=== PATIENT | male | born 1975 | race Caucasian/White ===

== ENCOUNTER 2016-05-07 07:39 | Inpatient (IN) | payer MEDICAID ==
[~2016-05-07] VITALS: Ht 182.9 cm; Wt 145.2 kg
[2016-05-07] VITALS (8 sets, daily range): BP systolic 113–145; BP diastolic 48–79; PULSE 102–116; RESP 20–30; TEMP 97.8–101; O2SAT 96–100
[~2016-05-07 07:39] MED LIST: CEPH-460 PO; XARE15TA PO; XARE20TA PO
--- NOTE | 2016-05-07 08:44 | RADRPT ---
EXAM DATE/TIME: 05/07/2016 08:08 [facility] COMPARISON: CT PULMONARY ANGIOGRAM, March 05, 2016, 11:24. CHEST SINGLE AP, March 05, 2016, 8:42. INDICATIONS : Patient states productive cough,fever, and swelling of the legs starting this morning. MEDICAL HISTORY : Deep venous thrombosis. SURGICAL HISTORY : Lithotripsy. ENCOUNTER: Initial ACUITY: 1 day PAIN SCORE: 0/10 LOCATION: Bilateral chest FINDINGS: A single view of the chest demonstrates the lungs to be symmetrically aerated without evidence of mas s, infiltrate or effusion. The heart size is diffusely enlarged but stable compared to the prior exa m. There been no new significant changes compared to the prior study.. Osseous structures are intact . CONCLUSION: Stable examination of the chest. No acute pulmonary and ltrates. Jesus Bruno MD on May 07, 2016 at 8:39 Board Certified Radiologist. This report was verified electronically.
[2016-05-07 09:01] LABS: BASOPHIL % 0.4 % (0.0-2.0); HEMO FLAGS DIFF FINAL; LYMPH % 2.5 % (9.0-44.0); LYMPHOCYTE # 0.3 TH/MM3 (1.0-4.8); MEAN CELL VOLUME 85.2 FL (80.0-100.0); MEAN CORPUSCULAR HGB CONC 32.9 % (32.0-36.0); MONO % 4.6 % (0.0-8.0); NEUT % 92.5 % (16.0-70.0); PLATELET COUNT 207 TH/MM3 (150-450); RED BLOOD COUNT 5.28 MIL/MM3 (4.50-5.90); RED CELL DISTRIBUTION WIDTH 14.1 % (11.6-17.2)
[2016-05-07 09:11] LABS: ANION GAP 5 MEQ/L (5-15); AST (GOT) 11 U/L (15-37); BICARBONATE 30.1 MEQ/L (21.0-32.0); BLOOD UREA NITROGEN 9 MG/DL (7-18); CHLORIDE 104 MEQ/L (98-107); GLOMERULAR FILTRATION RATE 75 ML/MIN (>89); POTASSIUM 4.6 MEQ/L (3.5-5.1); SODIUM (NA) 139 MEQ/L (136-145)
[2016-05-07 09:14] LABS: ALKALINE PHOSPHATASE 71 U/L (45-117); ALT (GPT) 23 U/L (12-78); TOTAL BILIRUBIN ADULT 0.6 MG/DL (0.2-1.0)
[2016-05-07 09:35] LABS: BLOOD, URINE NEG (NEG); COMMENT (UR) CULT NOT INDICATED; CULTURE IF INDICATED CULT NOT INDICATED; GLUCOSE,URINE NEG (NEG); KETONE, URINE NEG (NEG); MUCUS URINE FEW /lpf (OCC); NITRITE,URINE NEG (NEG); PH, URINE 6.5 (5.0-8.5); SQUAMOUS EPITHELIAL CELL URINE 2 /hpf (0-5); URINE COLOR YELLOW (YELLW/STRAW)
[2016-05-07] MEDS ORDERED: ACETAMINOPHEN 325 MG TAB PO ONE (09:45)
[2016-05-07] MEDS ORDERED: CLINDAMYCIN INJ 600 MG in SODIUM CHLORIDE 0.9% INJ 100 ML IV ONE (09:45)
[2016-05-07] MEDS ORDERED: SODIUM CHLOR 0.9% 1000 ML INJ 1,000 ML IV ONE (09:45)
[2016-05-07] MEDS ORDERED: ONDANSETRON HCL 4 MG/2 ML VIAL IV PUSH ONE (10:00)
[2016-05-07] MEDS ORDERED: IOHEXOL 350 MG/ML 10 ML VIAL (for RAD DIAG) IV ONE (10:33)
--- NOTE | 2016-05-07 10:48 | RADRPT ---
EXAM DATE/TIME: 05/07/2016 10:21 [facility] COMPARISON: No previous studies available for comparison. INDICATIONS : Nausea, vomiting, diarrhea, fever, and epigastric pain. Possible sepsis. IV CONTRAST: 92 cc Omnipaque 350 (iohexol) IV ORAL CONTRAST: No oral contrast ingested. RADIATION DOSE: 31.88 CTDIvol (mGy) MEDICAL HISTORY : Deep venous thrombosis. SURGICAL HISTORY : None. ENCOUNTER: Initial ACUITY: 1 day PAIN SCALE: 6/10 LOCATION: Bilateral lower quadrant TECHNIQUE: Volumetric scanning of the abdomen and pelvis was performed. Using automated exposure control and ad justment of the mA and/or kV according to patient size, radiation dose was kept as low as reasonably achievable to obtain optimal diagnostic quality images. FINDINGS: LOWER LUNGS: The visualized lower lungs are clear. LIVER: Homogeneous density without lesion. There is no dilation of the biliary tree. No calcified gallston es. SPLEEN: Normal size without lesion. PANCREAS: Within normal limits. KIDNEYS: Normal in size and shape. There is no mass, stone or hydronephrosis. ADRENAL GLANDS: Within normal limits. VASCULAR: There is no aortic aneurysm. BOWEL/MESENTERY: The stomach, small bowel, and colon demonstrate no acute abnormality. There is no free intraperitone al air or fluid. ABDOMINAL WALL: Small fat-containing umbilical hernia without evidence of incarceration. RETROPERITONEUM: There are moderately prominent bilateral iliac chain lymph nodes, more pronounced on the right than t he left with largest nodes approaching 2 cm in short axis dimension. BLADDER: No wall thickening or mass. REPRODUCTIVE: Within normal limits. INGUINAL: Prominent bilateral inguinal adenopathy. MUSCULOSKELETAL: Within normal limits for patient age. CONCLUSION: Bilateral inguinal adenopathy and prominent iliac chain lymph nodes in the pelvis. If the patient hoskins s not have an ongoing inflammatory process in the lower extremities such as cellulitis, these nodes s hould be considered suspicious for neoplastic. Otherwise no acute findings in the abdomen and pelvis. Go Chacko MD on May 07, 2016 at 10:39 Board Certified Radiologist. This report was verified electronically.
--- NOTE | 2016-05-07 11:37 | PD ---
HPI Chief Complaint: Fever Time Seen by Provider: 09:24 Travel History International Travel<30 days: No Contact w/Intl Traveler<30days: No Traveled to known affect area: No History of Present Illness HPI Patient is a 41-year-old male who comes in complaining of fever with some nausea , vomiting, diarrhea. He also notes that his legs are swollen and have been red. He says he started feeling ill around 1 AM this morning, and got progressively worse. He has been admitted several times for cellulitis causing sepsis. He says he has had a slight cough, but denies any chest pain or shortness of breath. He says he has some pain to his upper abdomen. He says he had [place] food for dinner last night. No one else ate the same food. PFSH Past Medical History Hx Anticoagulant Therapy: Yes (STOPPED OVER A MONTHA AGO--NOT TOLD TO STOP) Arthritis: No Asthma: No Autoimmune Disease: No Anxiety: No Depression: No Heart Rhythm Problems: No Cancer: No Cardiovascular Problems: No High Cholesterol: No Chemotherapy: No Chest Pain: No Congestive Heart Failure: No COPD: No Cerebrovascular Accident: No Diabetes: No Diminished Hearing: No Deep Vein Thrombosis: Yes (RIGHT LEG 09/2015) Endocrine: No GERD: No Genitourinary: Yes Headaches: No Hiatal Hernia: No Hypertension: No Immune Disorder: No Implanted Vascular Access Dvce: No Kidney Stones: Yes (LITHOTRIPSY X 1997) Musculoskeletal: No Neurologic: No Psychiatric: No Reproductive: No Respiratory: Yes (BILAT PE) Integumentary: Yes (CHRONIC CELLULITIS [place]ILL[place] FEET) Immunizations Current: Yes Migraines: No Radiation Therapy: No Renal Failure: No Seizures: No Sleep Apnea: No Thyroid Disease: No Ulcer: No Past Surgical History Abdominal Surgery: No Cardiac Surgery: No Ear Surgery: No Endocrine Surgery: No Eye Surgery: No Genitourinary Surgery: Yes (KIDNEY STONE REMOVED) Gynecologic Surgery: No Neurologic Surgery: No Oral Surgery: No Thoracic Surgery: No Tonsillectomy: Yes Other Surgery: Yes Social History Alcohol Use: No Tobacco Use: No Substance Use: No Allergies-Medications (Allergen,Severity, Reaction): Coded Allergies: [place] (Verified Allergy, Severe, Anaphylaxis, 03/05/16) THROAT CLOSES /RASH Reported Meds & Prescriptions Reported Meds & Active Scripts Active Xarelto (Rivaroxaban) 20 Mg Tab 20 Mg PO DAILY 30 Days Review of Systems Except as stated in HPI: all other systems reviewed are Neg General / Constitutional: Positive: Fever HENT: No: Headaches, Lightheadedness Cardiovascular: No: Chest Pain or Discomfort Respiratory: No: Shortness of Breath Gastrointestinal: Positive: Nausea, Vomiting, Abdominal Pain Genitourinary: No: Dysuria Musculoskeletal: Positive: Edema Skin: Positive Change in Pigmentation Neurologic: No: Weakness, Dizziness Physical Exam Narrative GENERAL: Awake and alert in no acute distress. SKIN: Warm and dry. Erythema and warmth to both lower extremities. No open wounds. HEAD: Atraumatic. Normocephalic. EYES: Pupils equal and round. No scleral icterus. ENT: Mucous membranes pink and moist. NECK: Trachea midline. No JVD. CARDIOVASCULAR: Tachycardia. No murmur appreciated. RESPIRATORY: No accessory muscle use. Clear to auscultation. Breath sounds equal bilaterally. GASTROINTESTINAL: Abdomen soft, non-tender, nondistended. MUSCULOSKELETAL: No obvious deformities. No clubbing. No cyanosis. Large edema to bilateral lower extremities. NEUROLOGICAL: Awake and alert. No obvious cranial nerve deficits. Motor grossly within normal limits. Normal speech. PSYCHIATRIC: Appropriate mood and affect; insight and judgment normal. Data Data Last Documented VS Vital Signs Date Time Temp Pulse Resp B/P Pulse Ox O2 Delivery O2 Flow Rate FiO2 05/07/16 09:28 101.0 05/07/16 09:19 98 Room Air 05/07/16 08:07 116 30 116/48 Orders Electrocardiogram (05/07/16 ) Basic Metabolic Panel (Bmp) (05/07/16 07:42) Comprehensive Metabolic Panel (05/07/16 07:42) Lactic Acid (05/07/16 07:42) Blood Culture (05/07/16 07:42) Urinalysis - C+S If Indicated (05/07/16 07:42) Chest, Single Ap (05/07/16 07:43) Complete Blood Count With Diff (05/07/16 08:40) Sodium Chlor 0.9% 1000 Ml Inj (Ns 1000 M (05/07/16 09:45) Influenzae A/B Antigen (05/07/16 09:40) Ct Abd/Pel W Iv Contrast(Rout) (05/07/16 ) Acetaminophen (Tylenol) (05/07/16 09:45) Clindamycin Inj (Cleocin Inj) (05/07/16 09:45) Ondansetron Inj (Zofran Inj) (05/07/16 10:00) Iohexol 350 Inj (Omnipaque 350 Inj) (05/07/16 10:33) Admit Order (Ed Use Only) (05/07/16 ) Labs Laboratory Tests Test 05/07/16 08:35 White Blood Count 13.0 TH/MM3 Red Blood Count 5.28 MIL/MM3 Hemoglobin 14.8 GM/DL Hematocrit 45.0 % Mean Corpuscular Volume 85.2 FL Mean Corpuscular Hemoglobin 28.0 PG Mean Corpuscular Hemoglobin 32.9 % Concent Red Cell Distribution Width 14.1 % Platelet Count 207 TH/MM3 Mean Platelet Volume 8.8 FL Neutrophils (%) (Auto) 92.5 % Lymphocytes (%) (Auto) 2.5 % Monocytes (%) (Auto) 4.6 % Eosinophils (%) (Auto) 0.0 % Basophils (%) (Auto) 0.4 % Neutrophils # (Auto) 12.0 TH/MM3 Lymphocytes # (Auto) 0.3 TH/MM3 Monocytes # (Auto) 0.6 TH/MM3 Eosinophils # (Auto) 0.0 TH/MM3 Basophils # (Auto) 0.0 TH/MM3 CBC Comment DIFF FINAL Differential Comment Urine Color YELLOW Urine Turbidity CLEAR Urine pH 6.5 Urine Specific [place] 1.021 Urine Protein TRACE mg/dL Urine Glucose (UA) NEG mg/dL Urine Ketones NEG mg/dL Urine Occult Blood NEG Urine Nitrite NEG Urine Bilirubin NEG Urine Urobilinogen LESS THAN 2.0 MG/DL Urine Leukocyte Esterase NEG Urine RBC LESS THAN 1 /hpf Urine WBC 1 /hpf Urine Squamous Epithelial 2 /hpf Cells Urine Mucus FEW /lpf Microscopic Urinalysis Comment CULT NOT INDICATED Sodium Level 139 MEQ/L Potassium Level 4.6 MEQ/L Chloride Level 104 MEQ/L Carbon Dioxide Level 30.1 MEQ/L Anion Gap 5 MEQ/L Blood Urea Nitrogen 9 MG/DL Creatinine 1.08 MG/DL Estimat Glomerular Filtration 75 ML/MIN Rate Random Glucose 109 MG/DL Lactic Acid Level 1.6 mmol/L Calcium Level 8.6 MG/DL Total Bilirubin 0.6 MG/DL Aspartate Amino Transf 11 U/L (AST/SGOT) Alanine Aminotransferase 23 U/L (ALT/SGPT) Alkaline Phosphatase 71 U/L Total Protein 8.0 GM/DL Albumin 3.5 GM/DL MDM Medical Decision Making Medical Screen Exam Complete: Yes Emergency Medical Condition: Yes Medical Record Reviewed: Yes Interpretation(s) ECG shows sinus tach at 120, no ST elevation or depression. Differential Diagnosis Sepsis versus gastroenteritis versus cellulitis versus pneumonia versus colitis versus gastritis Narrative Course Patient is a 41-year-old male comes in complaining of fever, nausea, vomiting, swelling of his legs. Exam shows erythema and warmth of bilateral lower extremities. Labs sent from triage show an elevated white blood cell count. Patient given IVF, started on antibiotics. Previous sensitivities show sensitivities to Vancomycin, resistance to Clindamycin. Given Clindamycin prior to seeing sensitivities, so Vancomycin added. Patient admitted for further management. Diagnosis Primary Impression: Bilateral cellulitis of lower leg Admitting Information Admitting Physician Requests: Admit Rylee More MD May 07, 2016 11:37
[2016-05-07] MEDS ORDERED: BISACODYL 10 MG SUPP PR PRN (12:00)
[2016-05-07] MEDS ORDERED: SENNOSIDES 8.6 MG TAB PO PRN (12:00)
[2016-05-07] MEDS ORDERED: PROCHLORPERAZINE 25 MG SUPP PR PRN (12:00)
[2016-05-07] MEDS ORDERED: SODIUM CHLORIDE 0.9% FLUSH 5 ML FLUSH FLUSH PRN (12:00)
[2016-05-07] MEDS ORDERED: MAGNESIUM HYDROXIDE SUSP 30 ML CUP PO PRN (12:00)
[2016-05-07] MEDS ORDERED: VANCOMYCIN INJ 1,000 MG in SODIUM CHLOR 0.9% 250 ML INJ 250 ML IV ONE (12:00)
[2016-05-07] MEDS ORDERED: VANCOMYCIN INJ 1,000 MG in SODIUM CHLOR 0.9% 250 ML INJ 250 ML IV SCH (12:15)
[2016-05-07] MEDS ORDERED: Vancomycin Consult Pharmacy 1 EA OTHER SCH (12:15)
[2016-05-07] MEDS: VANCOMYCIN INJ 2,500 MG in SODIUM CHLORID 0.9% 500 ML INJ 500 ML IV SCH (13:35)
[2016-05-07] MEDS: SODIUM CHLOR 0.9% 1000 ML INJ 1,000 ML IV SCH ×2 (13:36→22:18)
--- NOTE | 2016-05-07 14:15 | HHI.HP ---
[facility] Service [facility] Primary Care Physician No Primary Care Physician Admission Diagnosis sepsis, cellulitis Diagnoses: Travel History International Travel<30 Days: No Contact w/Intl Traveler <30 Da: No Traveled to Known Affected Are: No History of Present Illness Patient is a 41-year-old male who comes in complaining of fever with some nausea , vomiting, diarrhea. He also notes that his legs are swollen and have been red. He says he started feeling ill around 1 AM this morning, and got progressively worse. He had fevers, nausea, vomited 6 times. He has been admitted several times for cellulitis causing sepsis. He says he has had a slight cough, but denies any chest pain or shortness of breath. He says he has some pain to his upper abdomen. He says he had [place] food for dinner last night. No one else ate the same food. Patient is also reporting worsening rash on his legs, worse on the right leg, associated with pain. He also has fevers, no chills. With sepsis criteria on admission today. Blood cx obtained. Patient started on IV abx, received IVF, pain meds. He feels much better. Will admit for further eval and treatment. Review of Systems Constitutional: DENIES: Fever, Chills, Change in appetite Endocrine: DENIES: Heat/cold intolerance, Polydipsia, Polyuria, Polyphagia Eyes: DENIES: Blurred vision, Eye pain Ears, nose, mouth, throat: DENIES: Tinnitus, Hearing loss, Vertigo, Nasal discharge, Oral lesions, Throat pain, Hoarseness, Ear Pain, Running Nose, Epistaxis, Sinus Pain, Toothache, Odynophagia Respiratory: DENIES: Apneas, Cough, Snoring, Wheezing, Hemoptysis, Sputum production, Shortness of breath Cardiovascular: DENIES: Chest pain, Palpitations, Syncope, Dyspnea on Exertion , PND, Lower Extremity Edema, Orthopnea, Claudication Gastrointestinal: COMPLAINS OF: Abdominal pain, Diarrhea, Nausea, Vomiting, Anorexia, DENIES: Black stools, Bloody stools, Constipation, Difficulty Swallowing Genitourinary: DENIES: Hematuria, Dysuria, Nocturia Musculoskeletal: COMPLAINS OF: Back pain (chronic ) Integumentary: COMPLAINS OF: Rash Neurologic: DENIES: Abnormal gait, Headache, Localized weakness, Paresthesias, Seizures, Speech Problems, Tremor, Poor Balance Psychiatric: DENIES: Anxiety, Depression Past Family Social History Past Medical History H/o DVT and PE on xarelto Past Surgical History back surgery 1995 Reported Medications Reported Meds & Active Scripts Active Xarelto (Rivaroxaban) 20 Mg Tab 20 Mg PO DAILY 30 Days Allergies: Coded Allergies: [place] (Verified Allergy, Severe, Anaphylaxis, 03/05/16) THROAT CLOSES /RASH Family History Mother DM Father DM and Parkinson's Social History Denies EtOH, tobacco or illicit drug use. Physical Exam Vital Signs Vital Signs Date Time Temp Pulse Resp B/P Pulse Ox O2 Delivery O2 Flow Rate FiO2 05/07/16 09:28 101.0 05/07/16 09:19 98 Room Air 05/07/16 08:07 100.7 116 30 116/48 96 Physical Exam GENERAL: This is a morbid obese male, well-nourished, well-developed patient, in no apparent distress. SKIN: BL LE redness and warmth. No open wounds. HEAD: Atraumatic. Normocephalic. No temporal or scalp tenderness. EYES: Pupils equal round and reactive. Extraocular motions intact. No scleral icterus. No injection or drainage. ENT: Nose without bleeding, purulent drainage or septal hematoma. Throat without erythema, tonsillar hypertrophy or exudate. Uvula midline. Airway patent. NECK: Trachea midline. No JVD or lymphadenopathy. Supple, nontender, no meningeal signs. CARDIOVASCULAR: Regular rate and rhythm without murmurs, gallops, or rubs. RESPIRATORY: Clear to auscultation. Breath sounds equal bilaterally. No wheezes , rales, or rhonchi. GASTROINTESTINAL: Abdomen soft, obese, non-tender, nondistended. No hepato- splenomegaly, or palpable masses. No guarding. MUSCULOSKELETAL: Extremities without clubbing, cyanosis, or edema. No joint tenderness, effusion, or edema noted. No calf tenderness. Negative Homans sign bilaterally. NEUROLOGICAL: Awake and alert. Cranial nerves II through XII intact. Motor and sensory grossly within normal limits. Five out of 5 muscle strength in all muscle groups. Normal speech. Laboratory Laboratory Tests Test 05/07/16 08:35 White Blood Count 13.0 Red Blood Count 5.28 Hemoglobin 14.8 Hematocrit 45.0 Mean Corpuscular Volume 85.2 Mean Corpuscular Hemoglobin 28.0 Mean Corpuscular Hemoglobin 32.9 Concent Red Cell Distribution Width 14.1 Platelet Count 207 Mean Platelet Volume 8.8 Neutrophils (%) (Auto) 92.5 Lymphocytes (%) (Auto) 2.5 Monocytes (%) (Auto) 4.6 Eosinophils (%) (Auto) 0.0 Basophils (%) (Auto) 0.4 Neutrophils # (Auto) 12.0 Lymphocytes # (Auto) 0.3 Monocytes # (Auto) 0.6 Eosinophils # (Auto) 0.0 Basophils # (Auto) 0.0 CBC Comment DIFF FINAL Differential Comment Urine Color YELLOW Urine Turbidity CLEAR Urine pH 6.5 Urine Specific [place] 1.021 Urine Protein TRACE Urine Glucose (UA) NEG Urine Ketones NEG Urine Occult Blood NEG Urine Nitrite NEG Urine Bilirubin NEG Urine Urobilinogen LESS THAN 2.0 Urine Leukocyte Esterase NEG Urine RBC LESS THAN 1 Urine WBC 1 Urine Squamous Epithelial 2 Cells Urine Mucus FEW Microscopic Urinalysis Comment CULT NOT INDICATED Sodium Level 139 Potassium Level 4.6 Chloride Level 104 Carbon Dioxide Level 30.1 Anion Gap 5 Blood Urea Nitrogen 9 Creatinine 1.08 Estimat Glomerular Filtration 75 Rate Random Glucose 109 Lactic Acid Level 1.6 Calcium Level 8.6 Total Bilirubin 0.6 Aspartate Amino Transf 11 (AST/SGOT) Alanine Aminotransferase 23 (ALT/SGPT) Alkaline Phosphatase 71 Total Protein 8.0 Albumin 3.5 Date/Time Procedure Status Source Growth 05/07/16 13:00 Influenza Types A,B Antigen ([place]) - Final Complete Nasal Washing NEGATIVE FOR FLU A AND B ANTIGEN.... 05/07/16 08:35 Aerobic Blood Culture Received Blood Peripheral Pending 05/07/16 08:35 Anaerobic Blood Culture Received Blood Peripheral Pending Result Diagram: 05/07/16 0835 05/07/16 0835 Imaging Last Impressions Chest X-Ray 05/07/16 0743 Signed Impressions: Service Date/Time: Saturday, May 07, 2016 08:08 - CONCLUSION: Stable examination of the chest. No acute pulmonary and ltrates. Jesus Bruno MD Abdomen/Pelvis CT 05/07/16 0000 Signed Impressions: Service Date/Time: Saturday, May 07, 2016 10:21 - CONCLUSION: Bilateral inguinal adenopathy and prominent iliac chain lymph nodes in the pelvis. If the patient does not have an ongoing inflammatory process in the lower extremities such as cellulitis, these nodes should be considered suspicious for neoplastic. Otherwise no acute findings in the abdomen and pelvis. Go Chacko MD Assessment and Plan Assessment and Plan 41 yo M with PMH of DVT/PE on xarelto, h/o bl LE cellulitis who came to ED with Sepsis, temp 101, leukocytosis, tachycardia on admission Nause/vomiting/diarrhea/abdominal pain Fever BL LE cellulitis H/O DVT/PE on xarelto. Obtain blood cx, wound cx Start vancomycin IV. Start IVF Antiemetics, laxatives/stool softeners as need. LA 1.6 Monitor VS. Consult podiatry Consult ID DVT ppx on xarelto Code Status full Discussed Condition With patient, ED physician, nurse Physician Certification 2 Midnight Certification Type: Admission for Inpatient Services Order for Inpatient Services 3The services are ordered in accordance with Medicare regulations or non- Medicare payer requirements, as applicable. In the case of services not specified as inpatient-only, they are appropriately provided as inpatient services in accordance with the 2-midnight benchmark. Estimated LOS (days): 3 days is the estimated time the patient will need to remain in the hospital, assuming treatment plan goals are met and no additional complications. Post-Hospital Plan: Home Destiny Ruiz MD May 07, 2016 14:15
[2016-05-07] MEDS: SODIUM CHLORIDE 0.9% FLUSH 5 ML FLUSH FLUSH SCH (21:00)
[2016-05-07] MEDS: ONDANSETRON HCL 4 MG/2 ML VIAL IVP PRN (22:17)
[2016-05-07] MEDS: ACETAMINOPHEN 325 MG TAB PO PRN (22:17)
--- NOTE | 2016-05-07 23:34 | EKG ---
Date Performed: 05/07/2016 Time Performed: 09:43:20 PTAGE: 41 years EKG: SINUS TACHYCARDIA LOW QRS VOLTAGE IN PRECORDIAL LEADS PATTERN CONSISTENT WITH PULMONARY DIS EASE INCOMPLETE RIGHT BUNDLE BRANCH BLOCK LEFT ANTERIOR FASCICULAR BLOCK ABNORMAL ECG PREVIOUS TRACING : 03/05/2016 08.15 DOCTOR: Rosaura Eden Interpretating Date/Time 05/07/2016 23:33:53
[2016-05-08] VITALS (10 sets, daily range): BP systolic 106–130; BP diastolic 56–79; PULSE 82–100; RESP 18–21; TEMP 98.2–100.9; O2SAT 92–96
[2016-05-08] MEDS: VANCOMYCIN INJ 2,500 MG in SODIUM CHLORID 0.9% 500 ML INJ 500 ML IV SCH ×2 (01:15→13:23)
[2016-05-08] MEDS: RIVAROXABAN 20 MG TAB PO SCH (08:52)
[2016-05-08] MEDS: SODIUM CHLOR 0.9% 1000 ML INJ 1,000 ML IV SCH ×3 (08:52→21:56)
[2016-05-08] MEDS: SODIUM CHLORIDE 0.9% FLUSH 5 ML FLUSH FLUSH SCH ×2 (08:53→21:00)
[2016-05-08] MEDS: ACETAMINOPHEN 325 MG TAB PO PRN (08:55)
[2016-05-08 09:58] LABS: AUTOMATED NEUTROPHIL # 5.3 TH/MM3 (1.8-7.7); BASOPHIL % 0.4 % (0.0-2.0); EOSINOPHIL % 0.1 % (0.0-4.0); HEMATOCRIT 41.7 % (39.0-51.0); HEMO FLAGS DIFF FINAL; LYMPH % 7.5 % (9.0-44.0); LYMPHOCYTE # 0.5 TH/MM3 (1.0-4.8); MEAN CELL VOLUME 84.7 FL (80.0-100.0); MEAN CORPUSCULAR HEMOGLOBIN 28.2 PG (27.0-34.0); MEAN CORPUSCULAR HGB CONC 33.3 % (32.0-36.0); MONO % 10.3 % (0.0-8.0); NEUT % 81.7 % (16.0-70.0); PLATELET COUNT 166 TH/MM3 (150-450); RED BLOOD COUNT 4.93 MIL/MM3 (4.50-5.90); RED CELL DISTRIBUTION WIDTH 14.3 % (11.6-17.2); WHITE BLOOD COUNT 6.5 TH/MM3 (4.0-11.0)
[2016-05-08 10:21] LABS: BICARBONATE 27.2 MEQ/L (21.0-32.0); POTASSIUM 3.8 MEQ/L (3.5-5.1)
--- NOTE | 2016-05-08 17:28 | HHI.PR ---
Subjective Remarks Patient laying in bed, is obese, denied chest pain or short of breath And a fever of 100.9 Objective Vitals Vital Signs Date Time Temp Pulse Resp B/P Pulse Ox O2 Delivery O2 Flow Rate FiO2 05/08/16 16:00 99.4 97 18 130/79 93 05/08/16 12:31 95 05/08/16 12:00 98.2 82 18 116/66 95 05/08/16 08:00 100.9 88 18 115/76 93 05/08/16 07:24 91 05/08/16 04:00 98.5 89 20 110/61 92 05/08/16 01:32 96 Nasal Cannula 2.00 05/08/16 00:58 100.6 98 21 106/57 93 05/07/16 23:00 102 05/07/16 20:13 100.4 104 21 117/74 96 05/07/16 18:50 106 I/O 05/07/16 05/07/16 05/07/16 05/08/16 05/08/16 05/08/16 07:00 15:00 23:00 07:00 15:00 23:00 Intake Total 1072 ml 1068 ml Output Total 1300 ml 325 ml Balance -228 ml 743 ml Intake IV Total 1072 ml 1068 ml Output Urine Total 1300 ml 325 ml # Voids 1 Result Diagram: 05/08/16 0906 05/08/16 0906 Objective Remarks GENERAL: This is a well-nourished, well-developed patient, obese in no apparent distress. CARDIOVASCULAR: Regular rate and rhythm without murmurs, gallops, or rubs. RESPIRATORY: Clear to auscultation. Breath sounds equal bilaterally. No wheezes , rales, or rhonchi. GASTROINTESTINAL: Abdomen soft, non-tender, nondistended. Normal active bowel sounds MUSCULOSKELETAL: Bilateral +2 edema with status dermatitis on bilateral lower extremity NEURO: Alert & Oriented x4 to person, place, time, situation. Moves all ext x4 A/P Assessment and Plan 41 yo M with PMH of DVT/PE on xarelto, h/o bl LE cellulitis who came to ED with Sepsis, temp 101, leukocytosis, tachycardia on admission Nause/vomiting/diarrhea/abdominal pain Persistent fever 100.9 today BL LE cellulitis H/O DVT/PE on xarelto. Plan: Follow blood cx, wound cx Continue antibiotic IV. Per ID switch to Keflex/tox he at discharge Antiemetics, laxatives/stool softeners as need. Consult podiatry Patient ID consultation DVT ppx on Davida Quezada MD May 08, 2016 17:28
[2016-05-08] MEDS: ONDANSETRON HCL 4 MG/2 ML VIAL IVP PRN (19:10)
--- NOTE | 2016-05-08 19:12 | PD.ID.CON ---
History of Present Illness Service ID Consult Requested By Dr Ruiz Reason for Consult sepsis Primary Care Physician No Primary Care Physician Diagnoses: History of Present Illness 41 yo male with morbid obesity and chronic BLE venostasis presents to the hospital yday with 1 day of fever, chills malaise, nausea, vomiting, diarrhea Denies sick exposure Lives alone No travel; He states his b/l lower extremeties were quirte swollen and red yday , but improved today He met sepsis criteria and got admitted [place] clx negative at 1 day, leukocytosis was 13 K on admission - improved CXR, UA - unremarkable BC negative @ 1 day He is on vancomycin Nausea, diarrhea - resolved Denies cough, SOB, chest pain Review of Systems Other as per history of present illness, the rest of 12 point review is negative Past Family Social History Allergies: Coded Allergies: [place] (Verified Allergy, Severe, Anaphylaxis, 03/05/16) THROAT CLOSES /RASH Past Medical History H/o DVT and PE on xarelto Past Surgical History remote back surgery 1995 Active Ordered Medications Medications where reviewed in EMR Antibiotics Include: vancomycin Family History Mother DM Father DM and Parkinson's Social History Denies EtOH, tobacco or illicit drug use. Physical Exam Vital Signs Vital Signs Date Time Temp Pulse Resp B/P Pulse Ox O2 Delivery O2 Flow Rate FiO2 05/08/16 18:03 21 05/08/16 16:00 99.4 97 18 130/79 93 05/08/16 12:31 95 05/08/16 12:00 98.2 82 18 116/66 95 05/08/16 08:00 100.9 88 18 115/76 93 05/08/16 07:24 91 05/08/16 04:00 98.5 89 20 110/61 92 05/08/16 01:32 96 Nasal Cannula 2.00 05/08/16 00:58 100.6 98 21 106/57 93 05/07/16 23:00 102 05/07/16 20:13 100.4 104 21 117/74 96 Physical Exam CONSTITUTIONAL/GENERAL: This is a morbidly obese patient, in no apparent distress. SKIN: No jaundice, rashes, or lesions. Skin temperature appropriate. Not diaphoretic. HEAD: Atraumatic. Normocephalic. EYES: Pupils equal and round and reactive. Extraocular motions intact. No scleral icterus. No injection or drainage. Fundi not examined. ENT: Hearing grossly normal. Nose without bleeding or purulent drainage. Oral mucosae moist without visible erythema, exudates, masses, or lesions. Poor dentition NECK: Trachea midline. Supple, nontender. No palpable thyroid enlargement or nodularity. CARDIOVASCULAR: Regular rate and rhythm without murmurs, gallops, or rubs. No JVD. Peripheral pulses symmetric. RESPIRATORY/CHEST: Symmetric, unlabored respirations. Clear to auscultation. Breath sounds equal bilaterally. No wheezes, rales, or rhonchi. GASTROINTESTINAL: Abdomen soft, non-tender, nondistended. No hepato-splenomegaly , or palpable masses. No guarding. Bowel sounds present. GENITOURINARY: Without palpable bladder distension. MUSCULOSKELETAL: Extremities without clubbing, cyanosis, Chronic appearing b/l tight 3+ edema. Healing dry small wounds and excoriations are present Hyperpigmientation present along withr residula erythema tree bark orozco cw diminished edema + b/l inguinal lymphadenopathy No joint tenderness or effusion noted. No calf tenderness. No mottling or clubbing. LYMPHATICS: No palpable cervical or supraclavicular adenopathy. NEUROLOGICAL: Awake and alert. Motor and sensory grossly within normal limits. Follows commands.Normal speech. Moves all extremities. PSYCHIATRIC: No obvious anxiety/depression. no apparent hallucinations or other psychotic thought process. Laboratory Laboratory Tests Test 05/08/16 09:06 White Blood Count 6.5 Red Blood Count 4.93 Hemoglobin 13.9 Hematocrit 41.7 Mean Corpuscular Volume 84.7 Mean Corpuscular Hemoglobin 28.2 Mean Corpuscular Hemoglobin 33.3 Concent Red Cell Distribution Width 14.3 Platelet Count 166 Mean Platelet Volume 8.9 Neutrophils (%) (Auto) 81.7 Lymphocytes (%) (Auto) 7.5 Monocytes (%) (Auto) 10.3 Eosinophils (%) (Auto) 0.1 Basophils (%) (Auto) 0.4 Neutrophils # (Auto) 5.3 Lymphocytes # (Auto) 0.5 Monocytes # (Auto) 0.7 Eosinophils # (Auto) 0.0 Basophils # (Auto) 0.0 CBC Comment DIFF FINAL Differential Comment Sodium Level 136 Potassium Level 3.8 Chloride Level 102 Carbon Dioxide Level 27.2 Anion Gap 7 Blood Urea Nitrogen 7 Creatinine 0.87 Estimat Glomerular Filtration 96 Rate Random Glucose 98 Calcium Level 8.0 Date/Time Procedure Status Source Growth 05/07/16 13:00 Influenza Types A,B Antigen (NAKUL) - Final Complete Nasal Washing NEGATIVE FOR FLU A AND B ANTIGEN.... 05/07/16 08:35 Aerobic Blood Culture - Preliminary Resulted Blood Peripheral NO GROWTH IN 1 DAY 05/07/16 08:35 Anaerobic Blood Culture - Preliminary Resulted Blood Peripheral NO GROWTH IN 1 DAY 05/07/16 07:42 Aerobic Blood Culture Received Blood Peripheral Pending 05/07/16 07:42 Anaerobic Blood Culture Received Blood Peripheral Pending Result Diagram: 05/08/16 0906 05/08/16 0906 Imaging Last Impressions Chest X-Ray 05/07/16 0743 Signed Impressions: Service Date/Time: Saturday, May 07, 2016 08:08 - CONCLUSION: Stable examination of the chest. No acute pulmonary and ltrates. Jesus Bruno MD Abdomen/Pelvis CT 05/07/16 0000 Signed Impressions: Service Date/Time: Saturday, May 07, 2016 10:21 - CONCLUSION: Bilateral inguinal adenopathy and prominent iliac chain lymph nodes in the pelvis. If the patient does not have an ongoing inflammatory process in the lower extremities such as cellulitis, these nodes should be considered suspicious for neoplastic. Otherwise no acute findings in the abdomen and pelvis. Go Chacko MD Assessment and Plan Assessment and Plan Fever, leukocytosis, diarrhea, nause, vomiting Source is likely b/l LE cellulitis in the settings of chtonic venostasis - strep ? GAS vs staph MSSA or MRSA Improved clinically cont vancomycin for now Keep lower extremeties elevated eventually transition to oral abx (Keflex 500 mg q 6 hrs + doxycycline 100 mg bid) vs clindamycin - once ready for dc Fu blood clx chk stool for C.diff if diarrhea recurs Discussed Condition With Sarah Flores MD May 08, 2016 19:12
[2016-05-09] VITALS (8 sets, daily range): BP systolic 112–133; BP diastolic 73–80; PULSE 80–92; RESP 18–22; TEMP 98.2–99.7; O2SAT 92–96
[2016-05-09] MEDS: VANCOMYCIN INJ 2,500 MG in SODIUM CHLORID 0.9% 500 ML INJ 500 ML IV SCH ×2 (01:25→12:58)
[2016-05-09] MEDS: ONDANSETRON HCL 4 MG/2 ML VIAL IVP PRN (02:13)
[2016-05-09] MEDS: RIVAROXABAN 20 MG TAB PO SCH (09:41)
[2016-05-09] MEDS: SODIUM CHLORIDE 0.9% FLUSH 5 ML FLUSH FLUSH SCH ×2 (09:41→20:25)
[2016-05-09] MEDS: SODIUM CHLOR 0.9% 1000 ML INJ 1,000 ML IV SCH ×2 (09:55→23:59)
[2016-05-09] MEDS ORDERED: INFLUENZA VIRUS VACCINE (QUADRIVALENT) 0.5 ML SYR IM ONE (10:00)
[2016-05-09] MEDS ORDERED: PHARMACY ORDERED LAB XX ONE (12:45)
[2016-05-09] MEDS ORDERED: CEPH-460 PO (14:05)
[2016-05-09] MEDS ORDERED: LACTCHW3 CHEW (14:05)
[2016-05-09] MEDS ORDERED: VIBR50SY PO (14:08)
--- NOTE | 2016-05-09 15:49 | HHI.PR ---
Subjective Remarks Patient still feeling heaviness in his legs, I encouraged him to ambulate, discussed with the nurse to increase his ambulation Will try to get him able to go home tomorrow on by mouth antibiotic Objective Vitals Vital Signs Date Time Temp Pulse Resp B/P Pulse Ox O2 Delivery O2 Flow Rate FiO2 05/09/16 12:00 98.8 80 20 126/80 94 05/09/16 11:24 93 21 05/09/16 10:58 82 05/09/16 09:41 94 Room Air 05/09/16 08:00 98.9 81 20 112/73 93 05/09/16 04:38 98.2 80 20 133/79 94 05/09/16 00:30 99.7 92 22 127/74 92 05/08/16 22:18 98.9 100 20 109/56 94 05/08/16 21:00 99 05/08/16 18:03 21 05/08/16 16:00 99.4 97 18 130/79 93 I/O 05/08/16 05/08/16 05/08/16 05/09/16 05/09/16 05/09/16 06:59 14:59 22:59 06:59 14:59 22:59 Intake Total 1068 ml 480 ml 1338 ml 930 ml 480 ml Output Total 325 ml 1350 ml 1035 ml 800 ml Balance 743 ml -870 ml 303 ml 930 ml -320 ml Intake Oral 480 ml 120 ml 480 ml IV Total 1068 ml 1218 ml 930 ml Output Urine Total 325 ml 1350 ml 475 ml 800 ml Emesis 560 ml Result Diagram: 05/08/1690505/08/16905 Objective Remarks GENERAL: This is a well-nourished, well-developed patient, obese in no apparent distress. CARDIOVASCULAR: Regular rate and rhythm without murmurs, gallops, or rubs. RESPIRATORY: Clear to auscultation. Breath sounds equal bilaterally. No wheezes , rales, or rhonchi. GASTROINTESTINAL: Abdomen soft, non-tender, nondistended. Normal active bowel sounds MUSCULOSKELETAL: Bilateral +2 edema with status dermatitis on bilateral lower extremity NEURO: Alert & Oriented x4 to person, place, time, situation. Moves all ext x4 A/P Assessment and Plan 41 yo M with PMH of DVT/PE on xarelto, h/o bl LE cellulitis who came to ED with Sepsis, temp 101, leukocytosis, tachycardia on admission Nause/vomiting/diarrhea/abdominal pain Persistent fever 100.9 today BL LE cellulitis H/O DVT/PE on xarelto. Plan: Follow blood cx negative for 2 days, wound cx Continue antibiotic IV. Per ID switch to Keflex/doxycycline at discharge Antiemetics, laxatives/stool softeners as need. Consult podiatry pending Patient ID consultation DVT ppx on xarelto Discharge Planning In a.m. with by mouth antibiotic Davida Hale MD May 09, 2016 15:49
[2016-05-09] MEDS ORDERED: ACETAMINOPHEN 325 MG TAB PO PRN (20:00)
[2016-05-10] VITALS: BP 127/76; PULSE 77; RESP 18; TEMP 98.2; O2SAT 98
[2016-05-10] MEDS: VANCOMYCIN INJ 2,500 MG in SODIUM CHLORID 0.9% 500 ML INJ 500 ML IV SCH ×2 (01:46→13:00)
[2016-05-10 04:00] VITALS: BP 150/83; PULSE 76; RESP 20; TEMP 97.5; O2SAT 94
[2016-05-10 08:00] VITALS: BP 140/80; PULSE 79; RESP 18; TEMP 96.6; O2SAT 94
[2016-05-10 08:07] LABS: AUTOMATED NEUTROPHIL # 4.2 TH/MM3 (1.8-7.7); BASOPHIL % 0.4 % (0.0-2.0); EOSINOPHIL # 0.3 TH/MM3 (0-0.4); EOSINOPHIL % 4.9 % (0.0-4.0); HEMATOCRIT 43.4 % (39.0-51.0); HEMO FLAGS DIFF FINAL; LYMPHOCYTE # 0.7 TH/MM3 (1.0-4.8); MEAN CELL VOLUME 85.1 FL (80.0-100.0); MEAN CORPUSCULAR HEMOGLOBIN 28.3 PG (27.0-34.0); MEAN CORPUSCULAR HGB CONC 33.3 % (32.0-36.0); MONO % 12.4 % (0.0-8.0); NEUT % 70.3 % (16.0-70.0); PLATELET COUNT 195 TH/MM3 (150-450); RED CELL DISTRIBUTION WIDTH 13.7 % (11.6-17.2); WHITE BLOOD COUNT 5.9 TH/MM3 (4.0-11.0)
[2016-05-10] MEDS: SODIUM CHLORIDE 0.9% FLUSH 5 ML FLUSH FLUSH SCH (08:13)
[2016-05-10] MEDS: RIVAROXABAN 20 MG TAB PO SCH (08:14)
[2016-05-10 09:30] VITALS: O2SAT 94
[2016-05-10 12:00] VITALS: BP 154/94; PULSE 71; RESP 18; TEMP 98.6; O2SAT 95
[2016-05-10] MEDS ORDERED: PHARMACY ORDERED LAB XX ONE (12:45)
--- NOTE | 2016-05-10 16:29 | HHI.IDPN ---
Subjective Subjective Remarks Doing good afebrile No co BC remian negative @ 3 days Antibiotics vancomycin Allergies: Coded Allergies: [place] (Verified Allergy, Severe, Anaphylaxis, 03/05/16) THROAT CLOSES /RASH Objective . Vital Signs Date Time Temp Pulse Resp B/P Pulse Ox O2 Delivery O2 Flow Rate FiO2 05/10/16 12:00 98.6 71 18 154/94 95 05/10/16 09:30 94 21 05/10/16 08:00 96.6 79 18 140/80 94 05/10/16 04:00 97.5 76 20 150/83 94 05/10/16 00:00 98.2 77 18 127/76 98 05/09/16 20:00 98.9 80 18 129/80 96 05/09/16 05/09/16 05/10/16 15:00 23:00 07:00 Intake Total 480 ml 1380 ml Output Total 800 ml Balance -320 ml 1380 ml Intake Oral 480 ml 600 ml IV Total 780 ml Output Urine Total 800 ml # Voids 3 . Laboratory Tests Test 05/10/16 06:59 White Blood Count 5.9 TH/MM3 Red Blood Count 5.10 MIL/MM3 Hemoglobin 14.4 GM/DL Hematocrit 43.4 % Mean Corpuscular Volume 85.1 FL Mean Corpuscular Hemoglobin 28.3 PG Mean Corpuscular Hemoglobin 33.3 % Concent Red Cell Distribution Width 13.7 % Platelet Count 195 TH/MM3 Mean Platelet Volume 8.8 FL Neutrophils (%) (Auto) 70.3 % Lymphocytes (%) (Auto) 12.0 % Monocytes (%) (Auto) 12.4 % Eosinophils (%) (Auto) 4.9 % Basophils (%) (Auto) 0.4 % Neutrophils # (Auto) 4.2 TH/MM3 Lymphocytes # (Auto) 0.7 TH/MM3 Monocytes # (Auto) 0.7 TH/MM3 Eosinophils # (Auto) 0.3 TH/MM3 Basophils # (Auto) 0.0 TH/MM3 CBC Comment DIFF FINAL Differential Comment Laboratory Tests Test 05/09/16 05/10/16 05:24 06:59 Lipase 97 U/L Creatinine 0.66 MG/DL Estimat Glomerular Filtration 132 ML/MIN Rate Imaging Last Impressions Chest X-Ray 05/07/16 0740 Signed Impressions: Service Date/Time: Saturday, May 07, 2016 08:08 - CONCLUSION: Stable examination of the chest. No acute pulmonary and ltrates. Jesus Bruno MD Abdomen/Pelvis CT 05/07/16 0000 Signed Impressions: Service Date/Time: Saturday, May 07, 2016 10:21 - CONCLUSION: Bilateral inguinal adenopathy and prominent iliac chain lymph nodes in the pelvis. If the patient does not have an ongoing inflammatory process in the lower extremities such as cellulitis, these nodes should be considered suspicious for neoplastic. Otherwise no acute findings in the abdomen and pelvis. Go Chacko MD Physical Exam CONSTITUTIONAL/GENERAL: This is a morbidly obese patient, in no apparent distress. OOB in chair SKIN: No jaundice, rashes, or lesions. Skin temperature appropriate. Not diaphoretic. MUSCULOSKELETAL: Extremities without clubbing, cyanosis, Improved edema Resolved erythema; chronic hyperpigmentation NEUROLOGICAL: Awake and alert. Non focal Assessment & Plan Remarks Fever, leukocytosis, diarrhea, nause, vomiting: all resolved -BC remian negative Source is likely b/l LE cellulitis in the settings of chtonic venostasis - strep ? GAS vs staph MSSA or MRSA Improved clinically dc vancomycin for now Keep lower extremeties elevated eOk to transition to oral abx (Keflex 500 mg q 6 hrs + doxycycline 100 mg bid ) vs clindamycin - once ready for dc Ok to dc home Sarah Driscoll MD May 10, 2016 16:29
[2016-05-12] MEDS ORDERED: PHARMACY ORDERED LAB XX ONE (00:45)
--- NOTE | 2016-05-15 14:18 | HHI.DS ---
Discharge Summary Admission Date May 07, 2016 at 11:57 Discharge Date: May 10, 2016 Admitting Diagnosis sepsis, cellulitis (1) Sepsis ICD Code: A41.9 (2) Sepsis due to cellulitis ICD Code: A41.9 Procedures See below Brief History - From Admission Patient is a 41-year-old male who comes in complaining of fever with some nausea , vomiting, diarrhea. He also notes that his legs are swollen and have been red. He says he started feeling ill around 1 AM this morning, and got progressively worse. He had fevers, nausea, vomited 6 times. He has been admitted several times for cellulitis causing sepsis. He says he has had a slight cough, but denies any chest pain or shortness of breath. He says he has some pain to his upper abdomen. He says he had [place] food for dinner last night. No one else ate the same food. Patient is also reporting worsening rash on his legs, worse on the right leg, associated with pain. He also has fevers, no chills. With sepsis criteria on admission today. Blood cx obtained. Patient started on IV abx, received IVF, pain meds. He feels much better. Will admit for further eval and treatment. PE at Discharge GENERAL: This is a well-nourished, well-developed patient, obese in no apparent distress. CARDIOVASCULAR: Regular rate and rhythm without murmurs, gallops, or rubs. RESPIRATORY: Clear to auscultation. Breath sounds equal bilaterally. No wheezes , rales, or rhonchi. GASTROINTESTINAL: Abdomen soft, non-tender, nondistended. Normal active bowel sounds MUSCULOSKELETAL: Bilateral +2 edema with status dermatitis on bilateral lower extremity NEURO: Alert & Oriented x4 to person, place, time, situation. Moves all ext x4 Hospital Course 41 yo M with PMH of DVT/PE on xarelto, h/o bl LE cellulitis who came to ED with Sepsis, temp 101, leukocytosis, tachycardia on admission Nause/vomiting/diarrhea/abdominal pain Persistent fever 100.9 today BL LE cellulitis H/O DVT/PE on xarelto. Plan: Follow blood cx negative for 2 days, wound cx Continue antibiotic IV. Per ID switch to Keflex/doxycycline at discharge Antiemetics, laxatives/stool softeners as need. Consult podiatry pending Patient ID consultation DVT ppx on xarelto Pt Condition on Discharge: Fair Discharge Disposition: Discharge Home Discharge Time: <= 30 minutes Discharge Instructions DIET: Follow Instructions for: Heart Healthy Diet, Diabetic Diet Activities you can perform: Weight Bearing as Maryam New Medications: Cephalexin (Keflex) 500 Mg Cap 500 MG PO Q6H Infection #40 Ref 0 CAP Doxycycline Calcium Liq (Vibramycin Liq) 50 Mg/5 Ml Syrp 100 MG PO BID Infection #20 Ref 0 ML Lactobacillus Acidophilus (Lactinex) 1 Chew 1 TAB CHEW DAILY Nutritional Supplement #30 Ref 0 TAB Continued Medications: Rivaroxaban (Xarelto) 20 Mg Tab 20 MG PO DAILY Blood Clot Prevention Days 30 Ref 11 TAB Davida Hale MD May 15, 2016 14:17
== END 2016-05-10 16:44 | disposition home or self-care (01) | DRG 872 ==
LOC: NEPE 07:39 → NEDA 11:57 → N05A 17:03
PROVIDERS: ADMIT Hospitalist; ATTEND Hospitalist
DX: A41.9 Sepsis, unspecified organism (principal); Z68.41 Body mass index [BMI] 40.0-44.9, adult; L03.115 Cellulitis of right lower limb; L03.116 Cellulitis of left lower limb; I87.2 Venous insufficiency (chronic) (peripheral); R19.7 Diarrhea, unspecified; R11.2 Nausea with vomiting, unspecified; E66.01 Morbid (severe) obesity due to excess calories; Z79.01 Long term (current) use of anticoagulants; Z86.711 Personal history of pulmonary embolism; Z86.718 Personal history of other venous thrombosis and embolism
CPT/HCPCS: 71010; 74177; 80048; 80053; 80202; 81001; 82565; 82948; 83605; 83690; 85025; 87040; 87804; 90686; 93005; 96374; 96375; J2405; J3370; J7030; J7040; Q2038; Q9967

== ENCOUNTER 2016-07-20 13:30 | Emergency (ER) | payer MEDICAID, OTHER ==
[~2016-07-20] VITALS: Ht 182.9 cm; Wt 125.0 kg
[~2016-07-20 13:30] MED LIST changes: +LACTCHW3 CHEW; +VIBR50SY PO; -XARE15TA PO
[2016-07-20 13:32] VITALS: BP 162/92; PULSE 105; RESP 17; TEMP 98.1; O2SAT 97
[2016-07-20 13:45] VITALS: BP 134/79; PULSE 99; RESP 22; TEMP 98; O2SAT 96
--- NOTE | 2016-07-20 14:02 | PD ---
HPI Chief Complaint: Edema Time Seen by Provider: 14:01 Travel History International Travel<30 days: No Contact w/Intl Traveler<30days: No Traveled to known affect area: No History of Present Illness HPI 41-year-old male with history of lymphedema and recurrent lower extremity cellulitis hospitalized in the past for sepsis, presents to emergency department for evaluation of increasing edema on the bilateral lower extremities with associated erythema and weeping. Patient states he has had felt chilled without fever. Reports lower extremity pain, aching, constant. Considered because they have started to weep. Reports pain exacerbated with ambulation. Patient has also had a cough and chest congestion developing over the last 48 hours. Nonproductive.. No reports of injury. No other symptoms to report this time. PFSH Past Medical History Hx Anticoagulant Therapy: Yes (xarelto, hx dvt) Arthritis: No Asthma: No Autoimmune Disease: No Anxiety: No Depression: Yes Heart Rhythm Problems: No Cancer: No Cardiovascular Problems: Yes High Cholesterol: No Chemotherapy: No Chest Pain: No Congestive Heart Failure: No COPD: No Cerebrovascular Accident: No Diabetes: No Diminished Hearing: No Deep Vein Thrombosis: Yes (RIGHT LEG 09/2015) Endocrine: No GERD: No Genitourinary: Yes Headaches: No Hiatal Hernia: No Hypertension: No Immune Disorder: No Implanted Vascular Access Dvce: No Kidney Stones: Yes (LITHOTRIPSY X 1997) Medical other: Yes (past may admitted for sepsis) Musculoskeletal: Yes Neurologic: Yes Psychiatric: No Reproductive: No Respiratory: Yes (BILAT PE) Integumentary: Yes (CHRONIC CELLULITIS PHILLIP FEET) Immunizations Current: Yes Migraines: No Radiation Therapy: No Renal Failure: No Seizures: No Sleep Apnea: No Thyroid Disease: No Ulcer: No Tetanus Vaccination: < 5 Years Influenza Vaccination: Yes Past Surgical History Abdominal Surgery: No Cardiac Surgery: No Ear Surgery: No Endocrine Surgery: No Eye Surgery: No Genitourinary Surgery: Yes (KIDNEY STONE REMOVED) Gynecologic Surgery: No Neurologic Surgery: No Oral Surgery: No Thoracic Surgery: No Tonsillectomy: Yes Other Surgery: Yes Social History Alcohol Use: No Tobacco Use: No Substance Use: No Allergies-Medications (Allergen,Severity, Reaction): Coded Allergies: [place] (Verified Allergy, Severe, Anaphylaxis, 07/20/16) THROAT CLOSES /RASH Reported Meds & Prescriptions Reported Meds & Active Scripts Active Keflex (Cephalexin) 500 Mg Cap 500 Mg PO Q6H 5 Days Bactrim DS (Sulfamethoxazole-Trimethoprim) 800-160 Mg Tab 1 Tab PO BID Xarelto (Rivaroxaban) 20 Mg Tab 20 Mg PO DAILY 30 Days Review of Systems Except as stated in HPI: all other systems reviewed are Neg Physical Exam Narrative GENERAL: Obese male patient, in no acute distress SKIN: Warm and dry. 2+ lower extremity edema with associated erythema and a small amount weeping distal to the knees. Distal pulses are palpable. HEAD: Atraumatic. Normocephalic. EYES: Pupils equal and round. No scleral icterus. No injection or drainage. ENT: No nasal bleeding or discharge. Mucous membranes pink and moist. NECK: Trachea midline. No JVD. CARDIOVASCULAR: Elevated rate and rhythm. No murmur appreciated. RESPIRATORY: No accessory muscle use. Clear to auscultation. Breath sounds equal bilaterally. GASTROINTESTINAL: Abdomen soft, non-tender, nondistended. Hepatic and splenic margins not palpable. MUSCULOSKELETAL: No obvious deformities. No clubbing. No cyanosis. NEUROLOGICAL: Awake and alert. No obvious cranial nerve deficits. Motor grossly within normal limits. Normal speech. Data Data Last Documented VS Vital Signs Date Time Temp Pulse Resp B/P Pulse Ox O2 Delivery O2 Flow Rate FiO2 07/20/16 15:29 97 Room Air 07/20/16 15:28 89 20 141/76 07/20/16 13:45 98.0 Orders Complete Blood Count With Diff (07/20/16 14:06) Prothrombin Time / Inr (Pt) (07/20/16 14:06) Act Partial Throm Time (Ptt) (07/20/16 14:06) Lactic Acid Sepsis Protocol (07/20/16 14:06) Magnesium (Mg) (07/20/16 14:06) Ckmb (Isoenzyme) Profile (07/20/16 14:06) Troponin I (07/20/16 14:06) Urinalysis - C+S If Indicated (07/20/16 14:06) Blood Culture (07/20/16 14:06) Chest, Single Ap (07/20/16 14:06) Blood Glucose (07/20/16 14:06) Ecg Monitoring (07/20/16 14:06) Iv Access Insert/Monitor (07/20/16 14:06) Oximetry (07/20/16 14:06) Oxygen Administration (07/20/16 14:06) Basic Metabolic Panel (Bmp) (07/20/16 14:06) Electrocardiogram (07/20/16 ) CKMB (07/20/16 14:40) CKMB% (07/20/16 14:40) Ketorolac Inj (Toradol Inj) (07/20/16 15:45) Labs Laboratory Tests Test 07/20/16 14:40 White Blood Count 8.8 TH/MM3 Red Blood Count 5.12 MIL/MM3 Hemoglobin 14.6 GM/DL Hematocrit 43.7 % Mean Corpuscular Volume 85.4 FL Mean Corpuscular Hemoglobin 28.5 PG Mean Corpuscular Hemoglobin 33.4 % Concent Red Cell Distribution Width 14.5 % Platelet Count 232 TH/MM3 Mean Platelet Volume 9.0 FL Neutrophils (%) (Auto) 70.6 % Lymphocytes (%) (Auto) 11.0 % Monocytes (%) (Auto) 13.4 % Eosinophils (%) (Auto) 4.0 % Basophils (%) (Auto) 1.0 % Neutrophils # (Auto) 6.2 TH/MM3 Lymphocytes # (Auto) 1.0 TH/MM3 Monocytes # (Auto) 1.2 TH/MM3 Eosinophils # (Auto) 0.4 TH/MM3 Basophils # (Auto) 0.1 TH/MM3 CBC Comment DIFF FINAL Differential Comment Prothrombin Time 10.0 SEC Prothromb Time International 0.9 RATIO Ratio Activated Partial 25.9 SEC Thromboplast Time Urine Color YELLOW Urine Turbidity CLEAR Urine pH 6.0 Urine Specific [place] 1.027 Urine Protein TRACE mg/dL Urine Glucose (UA) NEG mg/dL Urine Ketones NEG mg/dL Urine Occult Blood NEG Urine Nitrite NEG Urine Bilirubin NEG Urine Urobilinogen 4.0 MG/DL Urine Leukocyte Esterase TRACE Urine RBC LESS THAN 1 /hpf Urine WBC 1 /hpf Urine Squamous Epithelial 1 /hpf Cells Urine Mucus FEW /lpf Microscopic Urinalysis Comment CATH-CULT NOT IND Sodium Level 140 MEQ/L Potassium Level 4.3 MEQ/L Chloride Level 105 MEQ/L Carbon Dioxide Level 27.8 MEQ/L Anion Gap 7 MEQ/L Blood Urea Nitrogen 12 MG/DL Creatinine 0.95 MG/DL Estimat Glomerular Filtration 87 ML/MIN Rate Random Glucose 87 MG/DL Lactic Acid Level 1.2 mmol/L Calcium Level 8.5 MG/DL Magnesium Level 2.2 MG/DL Total Creatine Kinase 197 U/L Creatine Kinase MB 1.2 NG/ML Troponin I LESS THAN 0.02 NG/ML MDM Medical Decision Making Medical Screen Exam Complete: Yes Emergency Medical Condition: Yes Medical Record Reviewed: Yes Differential Diagnosis Lymphedema versus cellulitis versus lymphangitis versus folliculitis Narrative Course 41-year-old male presents to emergency department for evaluation of her stated pain with erythema in the distal lower extremities. Physical exam is consistent with a cellulitis. Extremities remained neurovascularly intact. Patient is afebrile here. Lab work is without acute concern. I discussed the patient might a physician. Patient will be started on oral antibiotics and discharged home at this time. He agrees to return immediately with any acute worsening of symptoms. Chest x-ray without acute cardiopulmonary disease. Diagnosis Primary Impression: Bilateral cellulitis of lower leg Additional Impressions: Obesity (BMI 30-39.9) Lymphedema of both lower extremities Referrals: Primary Care Physician Patient Instructions: Cellulitis (ED), General Instructions Additional Instructions: Elevate to reduce pain and swelling Follow-up with your primary care provider Return immediately with any acute worsening of symptoms Med/Other Pt SpecificInfo: Prescription(s) given Scripts Cephalexin (Keflex)500 Mg [id number] Mg PO Q6H 5 Days Ref 0 Prov:Tierra Jorge 07/20/16 Sulfamethoxazole-Trimethoprim (Bactrim DS)800-160 Mg Tab1 Tab PO BID #20 TAB Ref 0 Prov:Tierra Jorge 07/20/16 Disposition: 01 DISCHARGE HOME Condition: Stable Tierra Jorge Jul 20, 2016 14:01
--- NOTE | 2016-07-20 14:57 | RADRPT ---
EXAM DATE/TIME: 07/20/2016 14:23 [facility] COMPARISON: CHEST SINGLE AP, May 07, 2016, 8:08. INDICATIONS : Cough, chest congestion for 1 week MEDICAL HISTORY : None. SURGICAL HISTORY : None. ENCOUNTER: Initial ACUITY: 1 week PAIN SCORE: 0/10 LOCATION: Bilateral chest FINDINGS: A single view of the chest demonstrates the lungs to be symmetrically aerated without evidence of mas s, infiltrate or effusion. The heart size remains mildly prominent with no perihilar edema.. Osseou s structures are intact. CONCLUSION: No acute disease. There is no evidence of pneumonia. Iron Downs MD on July 20, 2016 at 14:50 Board Certified Radiologist. This report was verified electronically.
[2016-07-20 14:59] VITALS: O2SAT 99
[2016-07-20 14:59] LABS: AUTOMATED NEUTROPHIL # 6.2 TH/MM3 (1.8-7.7); BASOPHIL # 0.1 TH/MM3 (0-0.2); EOSINOPHIL # 0.4 TH/MM3 (0-0.4); HEMATOCRIT 43.7 % (39.0-51.0); HEMO FLAGS DIFF FINAL; MEAN CELL VOLUME 85.4 FL (80.0-100.0); MEAN CORPUSCULAR HEMOGLOBIN 28.5 PG (27.0-34.0); MEAN CORPUSCULAR HGB CONC 33.4 % (32.0-36.0); MONO % 13.4 % (0.0-8.0); NEUT % 70.6 % (16.0-70.0); PLATELET COUNT 232 TH/MM3 (150-450); RED BLOOD COUNT 5.12 MIL/MM3 (4.50-5.90); RED CELL DISTRIBUTION WIDTH 14.5 % (11.6-17.2); WHITE BLOOD COUNT 8.8 TH/MM3 (4.0-11.0)
[2016-07-20 15:08] LABS: BLOOD, URINE NEG (NEG); GLUCOSE,URINE NEG (NEG); KETONE, URINE NEG (NEG); MUCUS URINE FEW /lpf (OCC); NITRITE,URINE NEG (NEG); SQUAMOUS EPITHELIAL CELL URINE 1 /hpf (0-5); URINE COLOR YELLOW (YELLW/STRAW)
[2016-07-20 15:10] LABS: COMMENT (UR) CATH-CULT NOT IND; CULTURE IF INDICATED CATH CULTURE NOT IND
[2016-07-20 15:20] LABS: ANION GAP 7 MEQ/L (5-15); BICARBONATE 27.8 MEQ/L (21.0-32.0); BLOOD UREA NITROGEN 12 MG/DL (7-18); CHLORIDE 105 MEQ/L (98-107); GLOMERULAR FILTRATION RATE 87 ML/MIN (>89); MAGNESIUM 2.2 MG/DL (1.5-2.5); SODIUM (NA) 140 MEQ/L (136-145)
[2016-07-20 15:21] LABS: POTASSIUM 4.3 MEQ/L (3.5-5.1)
[2016-07-20 15:27] LABS: APTT (PATIENT) 25.9 SEC (24.3-30.1); CREATINE KINASE 197 U/L (39-308); INTERNATIONAL NORMALIZED RATIO 0.9 RATIO
[2016-07-20 15:28] VITALS: BP 141/76; PULSE 89; RESP 20; O2SAT 97
[2016-07-20 15:40] LABS: CKMB 1.2 NG/ML (0.5-3.6)
[2016-07-20] MEDS ORDERED: KETOROLAC TROMETHAMINE 30 MG/ML (IVP) VIAL IV PUSH ONE (15:45)
[2016-07-20] MEDS ORDERED: BACT800T5 PO (17:40)
[2016-07-20] MEDS ORDERED: CEPH-460 PO (17:40)
--- NOTE | 2016-07-20 18:04 | EKG ---
Date Performed: 07/20/2016 Time Performed: 15:12:26 PTAGE: 41 years EKG: Sinus rhythm LOW QRS VOLTAGE IN PRECORDIAL LEADS BORDERLINE ECG NO PREVIOUS TRACING DOCTOR: Andres Nunez Interpretating Date/Time 07/20/2016 18:02:03
[2016-07-20 18:15] VITALS: BP 138/76
== END 2016-07-20 18:42 | disposition home or self-care (01) ==
LOC: NEPE 13:30
DX: L03.115 Cellulitis of right lower limb (principal); L03.116 Cellulitis of left lower limb; E66.9 Obesity, unspecified; I89.0 Lymphedema, not elsewhere classified; R05 Cough; Z86.718 Personal history of other venous thrombosis and embolism; Z87.442 Personal history of urinary calculi; R82.90 Unspecified abnormal findings in urine; Z68.30 Body mass index [BMI] 30.0-30.9, adult
CPT/HCPCS: 71010; 80048; 81001; 82550; 82552; 83605; 83735; 84484; 85025; 85610; 85730; 87040; 93005; 96374; 99284; J1885

== ENCOUNTER 2016-08-04 19:00 | Emergency (ER) | payer MEDICAID ==
[~2016-08-04] VITALS: Ht 185.4 cm; Wt 120.0 kg
[~2016-08-04 19:00] MED LIST changes: +BACT800T5 PO; -LACTCHW3 CHEW; -VIBR50SY PO
[2016-08-04 19:04] VITALS: BP 161/91; PULSE 91; RESP 16; TEMP 97.6; O2SAT 99
[2016-08-04] MEDS ORDERED: ASPIRIN 81 MG CHEW TAB PO ONE (19:30)
[2016-08-04] MEDS ORDERED: SODIUM CHLORIDE 0.9% FLUSH 10 ML FLUSH IVF PRN (19:30)
[2016-08-04 19:33] VITALS: BP 181/93; O2SAT 98
[2016-08-04] MEDS: NITROGLYCERIN 0.4 MG SL 25 TABS/BTL SL SCH ×3 (19:37→19:46)
[2016-08-04 19:39] LABS: AUTOMATED NEUTROPHIL # 6.3 TH/MM3 (1.8-7.7); BASOPHIL # 0.1 TH/MM3 (0-0.2); BASOPHIL % 0.6 % (0.0-2.0); EOSINOPHIL # 0.2 TH/MM3 (0-0.4); HEMATOCRIT 45.3 % (39.0-51.0); HEMO FLAGS DIFF FINAL; LYMPH % 14.5 % (9.0-44.0); LYMPHOCYTE # 1.2 TH/MM3 (1.0-4.8); MEAN CELL VOLUME 85.2 FL (80.0-100.0); MEAN CORPUSCULAR HEMOGLOBIN 28.6 PG (27.0-34.0); MEAN CORPUSCULAR HGB CONC 33.5 % (32.0-36.0); MONO % 8.9 % (0.0-8.0); PLATELET COUNT 254 TH/MM3 (150-450); RED BLOOD COUNT 5.32 MIL/MM3 (4.50-5.90); WHITE BLOOD COUNT 8.5 TH/MM3 (4.0-11.0)
[2016-08-04 19:41] VITALS: BP 125/78; PULSE 79; RESP 24; O2SAT 99
--- NOTE | 2016-08-04 19:41 | PD ---
HPI Chief Complaint: Chest Pain Time Seen by Provider: 19:24 Travel History International Travel<30 days: No Contact w/Intl Traveler<30days: No Traveled to known affect area: No History of Present Illness HPI Patient is a 41-year-old male presents emergency department with complaint of chest pain. Patient has had sharp chest pain just to the right of sternum since yesterday. This is worse with movement. He has not found anything that makes it better. Patient noted some shortness of breath associated with this pain today. He denies any cough or chest congestion. Patient has chronic venous stasis and lymphedema in the bilateral lower extremities. History of DVT and PE and takes Xarelto and has been compliant with this. He has not noticed any rolling, pain within the legs. No redness, fevers or chills. He denies any hemoptysis. No history of coronary artery disease, to his knowledge he's never previously had any provocative testing. Patient states that this does not feel like his previous PE. Previously this was more lateral and sharp with inspiration. PFSH Past Medical History Hx Anticoagulant Therapy: Yes (xarelto, hx dvt) Arthritis: No Asthma: No Autoimmune Disease: No Anxiety: No Depression: Yes Heart Rhythm Problems: No Cancer: No Cardiovascular Problems: Yes High Cholesterol: No Chemotherapy: No Chest Pain: No Congestive Heart Failure: No COPD: No Cerebrovascular Accident: No Diabetes: No Diminished Hearing: No Deep Vein Thrombosis: Yes (RIGHT LEG 09/2015) Endocrine: No GERD: No Genitourinary: Yes Headaches: No Hiatal Hernia: No Hypertension: No Immune Disorder: No Implanted Vascular Access Dvce: No Kidney Stones: Yes (LITHOTRIPSY X 1997) Musculoskeletal: Yes Neurologic: Yes Psychiatric: No Reproductive: No Respiratory: Yes (BILAT PE) Integumentary: Yes (CHRONIC CELLULITIS PHILLIP FEET) Immunizations Current: Yes Migraines: No Radiation Therapy: No Renal Failure: No Seizures: No Sleep Apnea: No Thyroid Disease: No Ulcer: No Influenza Vaccination: No Past Surgical History Abdominal Surgery: No Cardiac Surgery: No Ear Surgery: No Endocrine Surgery: No Eye Surgery: No Genitourinary Surgery: Yes (KIDNEY STONE REMOVED) Gynecologic Surgery: No Neurologic Surgery: No Oral Surgery: No Thoracic Surgery: No Tonsillectomy: Yes Other Surgery: Yes Social History Alcohol Use: No Tobacco Use: No Substance Use: No Allergies-Medications (Allergen,Severity, Reaction): Coded Allergies: [place] (Verified Allergy, Severe, Anaphylaxis, 08/04/16) THROAT CLOSES /RASH Reported Meds & Prescriptions Reported Meds & Active Scripts Active Xarelto (Rivaroxaban) 20 Mg Tab 20 Mg PO DAILY 30 Days Review of Systems Except as stated in HPI: all other systems reviewed are Neg Physical Exam Narrative GENERAL: Middle-aged male appearing older than stated age in no acute distress SKIN: Focused skin assessment warm/dry. Chronic venous stasis, lymphedema changes to the bilateral lower extremities. HEAD: Normocephalic. EYES: No scleral icterus. No injection or drainage. ENT: Mucous membranes pink and moist. NECK: Supple CARDIOVASCULAR: Regular rate and rhythm. No murmur appreciated. RESPIRATORY: No accessory muscle use. Clear to auscultation. Breath sounds equal bilaterally. GASTROINTESTINAL: Abdomen soft, non-tender, nondistended. Obese MUSCULOSKELETAL: Venous stasis and lymphedema changes to the bilateral lower extremities with 2-3+ edema, no focal erythema, wounds. No palpable cords. NEUROLOGICAL: Awake and alert. Normal speech. PSYCHIATRIC: Appropriate mood and affect; insight and judgment normal. Data Data Last Documented VS Vital Signs Date Time Temp Pulse Resp B/P Pulse Ox O2 Delivery O2 Flow Rate FiO2 08/04/16 19:41 79 24 125/78 99 Nasal Cannula 2 08/04/16 19:04 97.6 Orders Electrocardiogram (08/04/16 19:27) Basic Metabolic Panel (Bmp) (08/04/16 19:27) B-Type Natriuretic Peptide (08/04/16 19:27) Ckmb (Isoenzyme) Profile (08/04/16 19:27) Complete Blood Count With Diff (08/04/16 19:27) D-Dimer (08/04/16 19:27) Magnesium (Mg) (08/04/16 19:27) Prothrombin Time / Inr (Pt) (08/04/16 19:27) Act Partial Throm Time (Ptt) (08/04/16 19:27) Troponin I (08/04/16 19:27) Chest, Single Ap (08/04/16 19:27) Ecg Monitoring (08/04/16 19:27) Bilateral Bp Monitoring (08/04/16 19:27) Iv Access Insert/Monitor (08/04/16 19:27) Oximetry (08/04/16 19:27) Aspirin Chew (Aspirin Chew) (08/04/16 19:30) Sodium Chloride 0.9% Flush (Ns Flush) (08/04/16 19:30) Nitroglycerin Sl (Nitrostat Sl) (08/04/16 19:30) Ct Pulmonary Angiogram (08/04/16 20:08) CKMB (08/04/16 19:35) CKMB% (08/04/16 19:35) Iohexol 350 Inj (Omnipaque 350 Inj) (08/04/16 20:44) Labs Laboratory Tests Test 08/04/16 19:35 White Blood Count 8.5 TH/MM3 Red Blood Count 5.32 MIL/MM3 Hemoglobin 15.2 GM/DL Hematocrit 45.3 % Mean Corpuscular Volume 85.2 FL Mean Corpuscular Hemoglobin 28.6 PG Mean Corpuscular Hemoglobin 33.5 % Concent Red Cell Distribution Width 14.0 % Platelet Count 254 TH/MM3 Mean Platelet Volume 8.8 FL Neutrophils (%) (Auto) 74.0 % Lymphocytes (%) (Auto) 14.5 % Monocytes (%) (Auto) 8.9 % Eosinophils (%) (Auto) 2.0 % Basophils (%) (Auto) 0.6 % Neutrophils # (Auto) 6.3 TH/MM3 Lymphocytes # (Auto) 1.2 TH/MM3 Monocytes # (Auto) 0.8 TH/MM3 Eosinophils # (Auto) 0.2 TH/MM3 Basophils # (Auto) 0.1 TH/MM3 CBC Comment DIFF FINAL Differential Comment Prothrombin Time 10.4 SEC Prothromb Time International 0.9 RATIO Ratio Activated Partial 25.7 SEC Thromboplast Time D-Dimer Quantitative (PE/DVT) 0.60 MG/L FEU Sodium Level 137 MEQ/L Potassium Level 3.8 MEQ/L Chloride Level 100 MEQ/L Carbon Dioxide Level 28.6 MEQ/L Anion Gap 8 MEQ/L Blood Urea Nitrogen 8 MG/DL Creatinine 1.10 MG/DL Estimat Glomerular Filtration 73 ML/MIN Rate Random Glucose 94 MG/DL Calcium Level 8.8 MG/DL Magnesium Level 2.0 MG/DL Total Creatine Kinase 119 U/L Creatine Kinase MB LESS THAN 0.5 NG/ML Troponin I LESS THAN 0.02 NG/ML B-Type Natriuretic Peptide 10 PG/ML MDM Medical Decision Making Medical Screen Exam Complete: Yes Emergency Medical Condition: Yes Medical Record Reviewed: Yes Differential Diagnosis 41-year-old male with history of DVT/PE here with right sided sternum sharp chest pain made worse with movement since yesterday with shortness of breath today. Differential includes musculoskeletal, PE, ACS, and less likely GERD, dissection. Narrative Course Patient placed on monitor, IV established and blood obtained. A twelve-lead EKG shows sinus rhythm without notable ST abnormalities, normal intervals. Patient given aspirin, nitroglycerin. Portable chest x-ray obtained that by my read shows cardiomegaly but no acute abnormalities. CBC, BMP, magnesium, CK-MB , troponin, coags, BNP, d-dimer notable for minimally elevated d-dimer. CT pulmonary injury gram was negative. Patient's pain is very reproducible on exam and my suspicion for ACS is low. I do not think patient warrants admission for provocative testing. Diagnosis Primary Impression: Atypical chest pain Additional Impression: Chest wall pain Referrals: Primary Care Physician as needed Additional Instructions: Follow-up with primary care provider symptoms persist and return to the ER for the warning signs discussed. Tylenol, ibuprofen, Aleve as needed for pain. Med/Other Pt SpecificInfo: No Change to Meds Disposition: 01 DISCHARGE HOME Condition: Stable Lisa Avilez MD Aug 04, 2016 19:41
[2016-08-04 20:00] LABS: APTT (PATIENT) 25.7 SEC (24.3-30.1); INTERNATIONAL NORMALIZED RATIO 0.9 RATIO; PROTHROMBIN TIME - PATIENT 10.4 SEC (9.8-11.6)
[2016-08-04 20:09] LABS: ANION GAP 8 MEQ/L (5-15); BICARBONATE 28.6 MEQ/L (21.0-32.0); BLOOD UREA NITROGEN 8 MG/DL (7-18); CHLORIDE 100 MEQ/L (98-107); GLOMERULAR FILTRATION RATE 73 ML/MIN (>89); POTASSIUM 3.8 MEQ/L (3.5-5.1); SODIUM (NA) 137 MEQ/L (136-145)
[2016-08-04 20:13] LABS: CREATINE KINASE 119 U/L (39-308)
[2016-08-04 20:25] LABS: CKMB LESS THAN 0.5 NG/ML (0.5-3.6)
[2016-08-04] MEDS ORDERED: IOHEXOL 350 MG/ML 10 ML VIAL (for RAD DIAG) IV ONE (20:44)
--- NOTE | 2016-08-04 21:00 | RADRPT ---
EXAM DATE/TIME: 08/04/2016 20:22 [facility] COMPARISON: CT PULMONARY ANGIOGRAM, March 05, 2016, 11:24. INDICATIONS : Medial chest pain since yesterday, today short of breath. IV CONTRAST: 75 cc Omnipaque 350 (iohexol) IV RADIATION DOSE: 18.12 CTDIvol (mGy) MEDICAL HISTORY : Deep venous thrombosis. SURGICAL HISTORY : None. ENCOUNTER: Initial ACUITY: 2 days PAIN SCALE: 4/10 LOCATION: medial chest TECHNIQUE: Volumetric scanning of the chest was performed using a pulmonary embolism protocol MIP images were re constructed. Using automated exposure control and adjustment of the mA and/or kV according to patien t size, radiation dose was kept as low as reasonably achievable to obtain optimal diagnostic quality images. FINDINGS: No filling defects identified within the pulmonary arteries to suggest bone embolic disease. Mild air trapping in the lungs. Minimal atelectasis. No pleural or pericardial effusion. No acute findings in the upper abdomen. CONCLUSION: 1. Negative for pulmonary embolus. Mild air trapping. Minimal atelectasis in the lungs. Sage Kwon MD on August 04, 2016 at 20:55 Board Certified Radiologist. This report was verified electronically.
--- NOTE | 2016-08-04 21:15 | RADRPT ---
EXAM DATE/TIME: 08/04/2016 19:25 [facility] COMPARISON: CT PULMONARY ANGIOGRAM, August 04, 2016, 20:22. INDICATIONS : Chest pain with labored breathing. MEDICAL HISTORY : None. SURGICAL HISTORY : None. ENCOUNTER: Initial ACUITY: 2 days PAIN SCORE: 5/10 LOCATION: Chest, midline. FINDINGS: A single view of the chest demonstrates the lungs to be symmetrically aerated without evidence of mas s, infiltrate or effusion. Minimal basilar atelectasis. The cardiomediastinal contours are unremarkab le. Osseous structures are intact. CONCLUSION: 1. Minimal basilar atelectasis. No consolidation or effusion. Saeg Kwon MD on August 04, 2016 at 21:13 Board Certified Radiologist. This report was verified electronically.
--- NOTE | 2016-08-05 10:37 | EKG ---
Date Performed: 08/04/2016 Time Performed: 19:19:43 PTAGE: 41 years EKG: Sinus rhythm NORMAL ECG PREVIOUS TRACING : 07/20/2016 15.12 DOCTOR: Jacques Oneil Interpretating Date/Time 08/05/2016 10:34:05
== END 2016-08-04 22:14 | disposition home or self-care (01) ==
LOC: NEPE 19:00
DX: R07.89 Other chest pain (principal); R06.02 Shortness of breath; Z79.01 Long term (current) use of anticoagulants; Z87.442 Personal history of urinary calculi; Z86.711 Personal history of pulmonary embolism; Z86.718 Personal history of other venous thrombosis and embolism
CPT/HCPCS: 71010; 71275; 80048; 82550; 82552; 83735; 83880; 84484; 85025; 85379; 85610; 85730; 93005; 99285; Q9967

== ENCOUNTER 2017-01-02 17:11 | Emergency (ER) | payer SELFPAY ==
[~2017-01-02] VITALS: Ht 182.9 cm; Wt 120.0 kg
[~2017-01-02 17:11] MED LIST changes: -BACT800T5 PO; -CEPH-460 PO
[2017-01-02 17:16] VITALS: BP 155/103; PULSE 109; RESP 24; TEMP 98.9; O2SAT 94
--- NOTE | 2017-01-02 17:21 | PD ---
Physical Exam Time Seen by Provider: 17:19 Narrative 41yo M c/o R leg pain and swelling x 3 days. Hx of DVT and currently taking Xarelto. +vomited yesterday. +fever 101.0 yesterday. Denies chest pain, SOB. Patient seen in triage. VS reviewed. Awaiting bed placement. Data Data Last Documented VS Vital Signs Date Time Temp Pulse Resp B/P (MAP) Pulse Ox O2 Delivery O2 Flow Rate FiO2 01/02/17 17:16 98.9 109 24 155/103 (120) 94 Room Air MDM Supervised Visit with STEPHANIE: Chantelle Abdi Jan 02, 2017 17:20
[2017-01-02 18:11] VITALS: BP 124/65; PULSE 89; RESP 18; O2SAT 96
[2017-01-02 18:39] LABS: HEMATOCRIT 52.4 % (39.0-51.0); MEAN CELL VOLUME 88.7 FL (80.0-100.0); MEAN CORPUSCULAR HEMOGLOBIN 29.1 PG (27.0-34.0); MEAN CORPUSCULAR HGB CONC 32.8 % (32.0-36.0); PLATELET COUNT 266 TH/MM3 (150-450); RED BLOOD COUNT 5.91 MIL/MM3 (4.50-5.90); RED CELL DISTRIBUTION WIDTH 13.7 % (11.6-17.2); WHITE BLOOD COUNT 12.3 TH/MM3 (4.0-11.0)
[2017-01-02 18:48] LABS: POTASSIUM 4.4 MEQ/L (3.5-5.1)
--- NOTE | 2017-01-02 18:49 | PD ---
HPI Chief Complaint: Edema Time Seen by Provider: 18:13 Travel History International Travel<30 days: No Contact w/Intl Traveler<30days: No Traveled to known affect area: No History of Present Illness HPI 41-year-old male came to the emergency room with history of bilateral leg swelling. The right is worse than the left. He is also complaining of pain and redness. No history of fever or chills. Patient says that last night he wasn't feeling too good and was nauseous. He was slightly tachycardic upon arrival but afebrile. Patient has history of DVT and PE in the past. He is on Xarelto. Patient says that he has not missed any doses. He has history of lymphedema of both legs right worse than the left. He has history of sepsis as well. [facility] Past Medical History Narrative Medical List of his past medical, surgical, social and family history reviewed from the nursing note Hx Anticoagulant Therapy: Yes Arthritis: No Asthma: No Autoimmune Disease: No Anxiety: No Depression: Yes Heart Rhythm Problems: No Cancer: No Cardiovascular Problems: Yes High Cholesterol: No Chemotherapy: No Chest Pain: No Congestive Heart Failure: No COPD: No Cerebrovascular Accident: No Diabetes: No Diminished Hearing: No Deep Vein Thrombosis: Yes (RIGHT LEG 09/2015) Endocrine: No GERD: No Genitourinary: Yes Headaches: No Hiatal Hernia: No Hypertension: No Immune Disorder: No Implanted Vascular Access Dvce: No Kidney Stones: Yes (LITHOTRIPSY X 1997) Musculoskeletal: Yes Neurologic: Yes Psychiatric: No Reproductive: No Respiratory: Yes (BILAT PE) Integumentary: Yes (CHRONIC CELLULITIS PHILLIP FEET) Immunizations Current: Yes Migraines: No Radiation Therapy: No Renal Failure: No Seizures: No Sleep Apnea: No Thyroid Disease: No Ulcer: No Tetanus Vaccination: < 5 Years Influenza Vaccination: Yes Past Surgical History Abdominal Surgery: No Cardiac Surgery: No Ear Surgery: No Endocrine Surgery: No Eye Surgery: No Genitourinary Surgery: Yes (KIDNEY STONE REMOVED) Gynecologic Surgery: No Neurologic Surgery: No Oral Surgery: No Thoracic Surgery: No Tonsillectomy: Yes Other Surgery: Yes Social History Alcohol Use: No (pt denies) Tobacco Use: No (pt denies ) Substance Use: No Allergies-Medications (Allergen,Severity, Reaction): Coded Allergies: straw[place] (Verified Allergy, Severe, Anaphylaxis, 8/31/17) THROAT CLOSES /RASH Comments List of his allergies reviewed from the nursing note. Reported Meds & Prescriptions Reported Meds & Active Scripts Active Bactrim DS (Sulfamethoxazole-Trimethoprim) 800-160 Mg Tab 1 Tab PO BID Xarelto (Rivaroxaban) 20 Mg Tab 20 Mg PO DAILY 30 Days Narrative Medication List of his home medications reviewed from the nursing note. Review of Systems Except as stated in HPI: all other systems reviewed are Neg Physical Exam Narrative GENERAL: Awake, alert, morbidly obese, mild distress SKIN: Focused skin assessment warm/dry. Bilateral leg lymphedema with lichenified skin. Some erythema and warmth of the right leg. Right leg is also tender to touch. HEAD: Atraumatic. Normocephalic. EYES: Pupils equal and round. No scleral icterus. No injection or drainage. ENT: No nasal bleeding or discharge. Mucous membranes pink and moist. NECK: Trachea midline. No JVD. CARDIOVASCULAR: Regular rate and rhythm. No murmur appreciated. RESPIRATORY: No accessory muscle use. Clear to auscultation. Breath sounds equal bilaterally. GASTROINTESTINAL: Abdomen soft, non-tender, nondistended. Hepatic and splenic margins not palpable. MUSCULOSKELETAL: No obvious deformities. No clubbing. No cyanosis. No edema. NEUROLOGICAL: Awake and alert. No obvious cranial nerve deficits. Motor grossly within normal limits. Normal speech. PSYCHIATRIC: Appropriate mood and affect; insight and judgment normal. Data Data Last Documented VS Vital Signs Date Time Temp Pulse Resp B/P (MAP) Pulse Ox O2 Delivery O2 Flow Rate FiO2 01/02/17 21:27 01/02/17 18:12 89 18 97 Room Air 01/02/17 17:16 98.9 Orders Orders Basic Metabolic Panel (Bmp) (01/02/17 17:42) Complete Blood Count With Diff (01/02/17 17:42) Prothrombin Time / Inr (Pt) (01/02/17 17:42) Act Partial Throm Time (Ptt) (01/02/17 17:42) Iv Access Insert/Monitor (01/02/17 17:42) Lactic Acid Sepsis Protocol (01/02/17 17:42) Blood Culture (01/02/17 17:42) Us Leg Venous Doppler Bilat (01/02/17 ) Cefazolin 2 Gm Premix (Ancef 2 Gm Premix (01/02/17 20:45) Sulfamet-Trimeth Ds 800-160 Mg (Bactrim (01/02/17 20:45) Labs Laboratory Tests Test 01/02/17 18:15 01/02/17 19:50 White Blood Count 12.3 TH/MM3 Red Blood Count 5.91 MIL/MM3 Hemoglobin 17.2 GM/DL Hematocrit 52.4 % Mean Corpuscular Volume 88.7 FL Mean Corpuscular Hemoglobin 29.1 PG Mean Corpuscular Hemoglobin Concent 32.8 % Red Cell Distribution Width 13.7 % Platelet Count 266 TH/MM3 Mean Platelet Volume 9.2 FL CBC Comment AUTO DIFF Differential Total Cells Counted 100 Neutrophils % (Manual) 84 % Lymphocytes % 11 % Monocytes % 4 % Eosinophils % 1 % Neutrophils # (Manual) 10.3 TH/MM3 Differential Comment FINAL DIFF MANUAL Hematology Comments Blood Urea Nitrogen 16 MG/DL Creatinine 1.18 MG/DL Random Glucose 98 MG/DL Calcium Level 9.3 MG/DL Sodium Level 137 MEQ/L Potassium Level 4.4 MEQ/L Chloride Level 103 MEQ/L Carbon Dioxide Level 27.0 MEQ/L Anion Gap 7 MEQ/L Estimat Glomerular Filtration Rate 68 ML/MIN Lactic Acid Level 1.2 mmol/L Prothrombin Time 11.3 SEC Prothromb Time International Ratio 1.0 RATIO Activated Partial Thromboplast Time 25.4 SEC MDM Medical Decision Making Medical Screen Exam Complete: Yes Emergency Medical Condition: Yes Medical Record Reviewed: Yes Differential Diagnosis DVT, cellulitis Narrative Course 9:34 PM blood test results of back and patient has some polycythemia and slight leukocytosis. Lactic acid is within normal limit. Ultrasound did not show any DVT. A dose of Ancef for cellulitis. Patient will be discharged home on Bactrim. Procedures EKG Prior to Arrival: No Diagnosis Primary Impression: Cellulitis of right leg Referrals: Primary Care Physician 1 week Additional Instructions: Please take the medication as per the prescription direction. Return to the ER if the condition worsens or any other new concerns. Follow-up with your primary care within a week. Med/Other Pt SpecificInfo: Prescription(s) given Scripts Sulfamethoxazole-Trimethoprim (Bactrim DS) 800-160 Mg Tab 1 TAB PO BID for Infection, #20 TAB 0 Refills Prov: Any Hyman MD 01/02/17 Disposition: 01 DISCHARGE HOME Condition: Stable Any Hyman MD Jan 02, 2017 18:49
[2017-01-02 18:53] LABS: HEMATOLOGY STUDY COMMENT ND; HEMO FLAGS AUTO DIFF
[2017-01-02 19:59] LABS: EOSINOPHILS 1 % (0-4); NEUTROPHIL # MANUAL DIFF 10.3 TH/MM3 (1.8-7.7); POLYS (SEG NEUTROPHILS) 84 % (16-70); WBC DIFF SAMPLE 100
[2017-01-02 20:00] LABS: SCAN/DIFF FINAL DIFF MANUAL
--- NOTE | 2017-01-02 20:12 | RADRPT ---
EXAM DATE/TIME: 01/02/2017 18:54 [facility] COMPARISON: US LEG BILATERAL VENOUS DOPPLER, March 05, 2016, 8:36. INDICATIONS : Bilateral leg swelling. MEDICAL HISTORY : Deep venous thrombosis. Bilateral pulmonary embolism. Kidney stones. Chronic cellulitis bilateral fee t. SURGICAL HISTORY : Tonsillectomy. ENCOUNTER: Subsequent ACUITY: 3 days PAIN SCORE: 5/10 LOCATION: Bilateral legs. TECHNIQUE: Venous ultrasound of the left and right leg was performed from the inguinal ligament to the proximal calf. Real-time, color Doppler and spectral tracing, compression and augmentation techniques were us ed. FINDINGS: RIGHT LEG: There is normal compressibility of the deep venous system from the inguinal region to the proximal ca lf. No echogenic clot is seen in the lumen of the common femoral, femoral, popliteal, and posterior tibial veins. There is a normal response of the venous system to proximal and distal augmentation an d respiration. Prominent lymph nodes are seen in the right inguinal region. The largest lymph node measures 5.8 x 3.9 x 1.4 cm. LEFT LEG: There is normal compressibility of the deep venous system from the inguinal region to the proximal ca lf. No echogenic clot is seen in the lumen of the common femoral, femoral, popliteal, and posterior tibial veins. There is a normal response of the venous system to proximal and distal augmentation an d respiration. CONCLUSION: No DVT. Prominent lymph nodes are seen in the right inguinal region. Go Alford MD on January 02, 2017 at 20:09 Board Certified Radiologist. This report was verified electronically.
[2017-01-02] MEDS ORDERED: SULFAMETHOXAZOLE-TRIMETHOPRIM DS 800-160 MG TAB PO ONE (20:45)
[2017-01-02] MEDS ORDERED: ceFAZolin 2 GM PREMIX 50 ML IV ONE (20:45)
[2017-01-02 21:00] LABS: PROTHROMBIN TIME - PATIENT 11.3 SEC (9.8-11.6)
[2017-01-02 21:02] LABS: APTT (PATIENT) 25.4 SEC (24.3-30.1)
[2017-01-02] MEDS ORDERED: BACT800T5 PO (21:14)
== END 2017-01-02 22:02 | disposition home or self-care (01) ==
LOC: NEPD 17:11
DX: L03.115 Cellulitis of right lower limb (principal); D75.1 Secondary polycythemia; D72.829 Elevated white blood cell count, unspecified; F32.9 Major depressive disorder, single episode, unspecified; Z86.711 Personal history of pulmonary embolism; Z86.718 Personal history of other venous thrombosis and embolism; Z79.899 Other long term (current) drug therapy
CPT/HCPCS: 80048; 83605; 85007; 85027; 85610; 85730; 87040; 93970; 96365; 99285; J0690

== ENCOUNTER 2017-02-21 22:02 | Inpatient (IN) | payer SELFPAY ==
[~2017-02-21] VITALS: Ht 182.9 cm; Wt 130.0 kg
[~2017-02-21 22:02] MED LIST changes: +BACT800T5 PO
[2017-02-21 22:04] VITALS: BP 151/73; PULSE 145; RESP 20; TEMP 103.1; O2SAT 96
[2017-02-21 22:16] VITALS: BP 146/81; PULSE 129; TEMP 103
[2017-02-21] MEDS ORDERED: XARE20TA PO (22:21)
[2017-02-21] MEDS ORDERED: SODIUM CHLOR 0.9% 1000 ML INJ 1,000 ML IV ONE (22:30)
--- NOTE | 2017-02-21 22:41 | RADRPT ---
EXAM DATE/TIME: 02/21/2017 22:26 [facility] COMPARISON: CHEST SINGLE AP, August 04, 2016, 19:25. INDICATIONS : Shortness of breath. Fever. MEDICAL HISTORY : None. SURGICAL HISTORY : None. ENCOUNTER: Initial ACUITY: 1 day PAIN SCORE: 0/10 LOCATION: Bilateral chest FINDINGS: A single view of the chest demonstrates the lungs to be symmetrically hypoaerated without evidence of mass, infiltrate or effusion. The cardiomediastinal contours are unremarkable. Osseous structures are intact. CONCLUSION: No acute disease. Rolando Adams MD on February 21, 2017 at 22:39 Board Certified Radiologist. This report was verified electronically.
--- NOTE | 2017-02-21 22:52 | PD ---
HPI Chief Complaint: GI Complaint Time Seen by Provider: 22:13 Travel History International Travel<30 days: No Contact w/Intl Traveler<30days: No Traveled to known affect area: No History of Present Illness HPI Patient is a 41-year-old male with history of sepsis in the past, lymphedema presents emergency Department with fever body aches nausea vomiting, pain headache and swelling of his legs old which is been worsening over the past 24- 48 hours. Patient states she's been diagnosed with sepsis in the past and this feels very similar. Denies any dysuria, denies any blood in the vomit but does endorse some blood in the stool. Also endorses some shortness of breath has a history of DVT in lower extremity is uncertain. Symptoms are moderate to severe , past 24-48 hours, worsening, context as above. PFSH Past Medical History Hx Anticoagulant Therapy: Yes (XARELTO) Arthritis: No Asthma: No Autoimmune Disease: No Anxiety: No Depression: Yes Heart Rhythm Problems: No Cancer: No Cardiovascular Problems: Yes (DVT) High Cholesterol: No Chemotherapy: No Chest Pain: No Congestive Heart Failure: No COPD: No Cerebrovascular Accident: No Diabetes: No Diminished Hearing: No Deep Vein Thrombosis: Yes (RIGHT LEG 09/2015) Endocrine: No GERD: No Genitourinary: Yes Headaches: No Hiatal Hernia: No Hypertension: No Immune Disorder: No Implanted Vascular Access Dvce: No Kidney Stones: Yes (LITHOTRIPSY X 1997) Musculoskeletal: Yes Neurologic: Yes Psychiatric: No Reproductive: No Respiratory: Yes (PE) Integumentary: Yes (CHRONIC CELLULITIS PHILLIP FEET) Immunizations Current: Yes Migraines: No Radiation Therapy: No Renal Failure: No Seizures: No Sleep Apnea: No Thyroid Disease: No Ulcer: No Past Surgical History Abdominal Surgery: No Cardiac Surgery: No Ear Surgery: No Endocrine Surgery: No Eye Surgery: No Genitourinary Surgery: Yes (KIDNEY STONE REMOVED) Gynecologic Surgery: No Neurologic Surgery: No Oral Surgery: No Thoracic Surgery: No Tonsillectomy: Yes Other Surgery: Yes Social History Alcohol Use: No (pt denies) Tobacco Use: No (pt denies ) Substance Use: No Allergies-Medications (Allergen,Severity, Reaction): Coded Allergies: strawberry (Verified Allergy, Severe, Anaphylaxis, 02/21/17) THROAT CLOSES /RASH Reported Meds & Prescriptions Reported Meds & Active Scripts Active Bactrim DS (Sulfamethoxazole-Trimethoprim) 800-160 Mg Tab 1 Tab PO BID Reported Xarelto (Rivaroxaban) 20 Mg Tab 20 Mg PO BID Review of Systems Except as stated in HPI: all other systems reviewed are Neg Physical Exam Narrative GENERAL: Well-developed, morbidly obese, tachycardic, no obvious distress. SKIN: Focused skin assessment warm/dry. HEAD: Atraumatic. Normocephalic. EYES: Pupils equal and round. No scleral icterus. No injection or drainage. ENT: No nasal bleeding or discharge. Mucous membranes pink and moist. NECK: Trachea midline. No JVD. CARDIOVASCULAR: Regular rhythm with tachycardia. No murmur appreciated. 2+ bilateral equal pulses in all 4 extremities. RESPIRATORY: No accessory muscle use. Clear to auscultation. Breath sounds equal bilaterally. GASTROINTESTINAL: Abdomen soft, non-tender, nondistended. Hepatic and splenic margins not palpable. MUSCULOSKELETAL: No obvious deformities. No clubbing. No cyanosis. Significant lymphedema bilateral lower extremities with minimal surrounding cellulitis, no open wounds. NEUROLOGICAL: Awake and alert. No obvious cranial nerve deficits. Motor grossly within normal limits. Normal speech. PSYCHIATRIC: Appropriate mood and affect; insight and judgment normal. Data Data Last Documented VS Vital Signs Date Time Temp Pulse Resp B/P (MAP) Pulse Ox O2 Delivery O2 Flow Rate FiO2 02/22/17 03:06 101 126/66 (86) 02/22/17 02:54 97 Room Air 02/22/17 01:57 20 02/22/17 01:20 97.5 Orders Orders Electrocardiogram (02/21/17 22:23) Complete Blood Count With Diff (02/21/17 22:23) Comprehensive Metabolic Panel (02/21/17 22:23) Prothrombin Time / Inr (Pt) (02/21/17 22:23) Act Partial Throm Time (Ptt) (02/21/17 22:23) Lactic Acid Sepsis Protocol (02/21/17 22:23) Magnesium (Mg) (02/21/17 22:23) Phosphorus (Po4) (02/21/17 22:23) Lipase (02/21/17 22:23) Ckmb (Isoenzyme) Profile (02/21/17 22:23) Troponin I (02/21/17 22:23) Urinalysis - C+S If Indicated (02/21/17 22:23) Blood Culture (02/21/17 22:23) Chest, Single Ap (02/21/17 22:23) Ecg Monitoring (02/21/17 22:23) Iv Access Insert/Monitor (02/21/17 22:23) Oximetry (02/21/17 22:23) Oxygen Administration (02/21/17 22:23) Sodium Chlor 0.9% 1000 Ml Inj (Ns 1000 M (02/21/17 22:30) Ct Pulmonary Angiogram (02/21/17 ) Ct Abd/Pel W Iv Contrast(Rout) (02/21/17 ) Influenzae A/B Antigen (02/21/17 23:19) Ondansetron Inj (Zofran Inj) (02/21/17 23:30) CKMB (02/21/17 22:32) CKMB% (02/21/17 22:32) Acetaminophen (Tylenol) (02/21/17 23:45) Ketorolac Inj (Toradol Inj) (02/21/17 23:45) Iohexol 350 Inj (Omnipaque 350 Inj) (02/22/17 00:38) Vancomycin Inj (Vancomycin Inj) (02/22/17 01:15) Piperacil-Tazo 4.5 Gm Premix (Zosyn 4.5 (02/22/17 01:15) Sodium Chlor 0.9% 1000 Ml Inj (Ns 1000 M (02/22/17 01:15) Sodium Chlor 0.9% 1000 Ml Inj (Ns 1000 M (02/22/17 02:00) Admit Order (Ed Use Only) (02/22/17 ) Labs Laboratory Tests Test 02/21/17 22:31 02/21/17 22:32 02/21/17 22:33 Lactic Acid Level 1.9 mmol/L White Blood Count 12.7 TH/MM3 Red Blood Count 5.65 MIL/MM3 Hemoglobin 16.6 GM/DL Hematocrit 49.4 % Mean Corpuscular Volume 87.5 FL Mean Corpuscular Hemoglobin 29.4 PG Mean Corpuscular Hemoglobin Concent 33.6 % Red Cell Distribution Width 13.7 % Platelet Count 258 TH/MM3 Mean Platelet Volume 8.9 FL Neutrophils (%) (Auto) 88.7 % Lymphocytes (%) (Auto) 4.4 % Monocytes (%) (Auto) 6.0 % Eosinophils (%) (Auto) 0.4 % Basophils (%) (Auto) 0.5 % Neutrophils # (Auto) 11.3 TH/MM3 Lymphocytes # (Auto) 0.6 TH/MM3 Monocytes # (Auto) 0.8 TH/MM3 Eosinophils # (Auto) 0.1 TH/MM3 Basophils # (Auto) 0.1 TH/MM3 CBC Comment DIFF FINAL Differential Comment Prothrombin Time 10.0 SEC Prothromb Time International Ratio 0.9 RATIO Activated Partial Thromboplast Time 24.7 SEC Blood Urea Nitrogen 12 MG/DL Creatinine 1.18 MG/DL Random Glucose 122 MG/DL Total Protein 8.7 GM/DL Albumin 3.9 GM/DL Calcium Level 9.2 MG/DL Phosphorus Level 0.7 MG/DL Magnesium Level 1.7 MG/DL Alkaline Phosphatase 70 U/L Aspartate Amino Transf (AST/SGOT) 23 U/L Alanine Aminotransferase (ALT/SGPT) 37 U/L Total Bilirubin 0.5 MG/DL Sodium Level 136 MEQ/L Potassium Level 4.3 MEQ/L Chloride Level 102 MEQ/L Carbon Dioxide Level 28.2 MEQ/L Anion Gap 6 MEQ/L Estimat Glomerular Filtration Rate 68 ML/MIN Total Creatine Kinase 164 U/L Creatine Kinase MB 0.8 NG/ML Troponin I LESS THAN 0.02 NG/ML Lipase 145 U/L Urine Color YELLOW Urine Turbidity CLEAR Urine pH 7.0 Urine Specific [place] 1.017 Urine Protein TRACE mg/dL Urine Glucose (UA) NEG mg/dL Urine Ketones NEG mg/dL Urine Occult Blood NEG Urine Nitrite NEG Urine Bilirubin NEG Urine Urobilinogen 2.0 MG/DL Urine Leukocyte Esterase NEG Urine RBC LESS THAN 1 /hpf Urine WBC LESS THAN 1 /hpf Urine Squamous Epithelial Cells 1 /hpf Urine Mucus FEW /lpf Microscopic Urinalysis Comment CATH-CULT NOT IND MDM Medical Decision Making Medical Screen Exam Complete: Yes Emergency Medical Condition: Yes Differential Diagnosis Cellulitis, sepsis, dehydration, tachycardia, PE, pneumonia, acute abdomen, or GI bleeding. Narrative Course Patient roomed in emergency department, mildly elevated white blood cell count with left shift, lactic acid negative, febrile and tachycardic. Patient does appear somewhat run down, patient may be septic from cellulitis and will place on empiric vancomycin and Zosyn, after 3 L of fluid the patient's vital signs are normalizing, patient was discussed with Dr. Escobar for admission to the hospital and she is agreeable. Critical Care Narrative Aggregate critical care time was 35 minutes. Time to perform other separately billable procedures was not included in the critical care time. My time did not include minutes spent treating any other patients simultaneously or on activities that did not directly contribute to the patient's treatment. The services I provided to this patient were to treat and/or prevent clinically significant deterioration that could result in: /disability/organ failure. I provided critical care services requiring my management, as noted below: Chart data review, documentation time, medication orders and management, vital sign assessments/reviewing monitor data, ordering and reviewing lab tests, ordering and interpreting/reviewing x-rays and diagnostic studies, care of the patient and discussion of the patient with the admitting physicians. HemaPrompt Point of Care Internal Pos. & Neg. Controls: Passed Fecal Specimen Occult Blood: Negative Diagnosis Primary Impression: Sepsis due to cellulitis Disposition: 01 DISCHARGE HOME Condition: Stable Rigo Briseno MD Feb 21, 2017 22:52
[2017-02-21 22:54] LABS: BLOOD, URINE NEG (NEG); GLUCOSE,URINE NEG (NEG); KETONE, URINE NEG (NEG); MUCUS URINE FEW /lpf (OCC); NITRITE,URINE NEG (NEG); SQUAMOUS EPITHELIAL CELL URINE 1 /hpf (0-5); URINE COLOR YELLOW (YELLW/STRAW)
[2017-02-21 22:58] LABS: AUTOMATED NEUTROPHIL # 11.3 TH/MM3 (1.8-7.7); BASOPHIL # 0.1 TH/MM3 (0-0.2); BASOPHIL % 0.5 % (0.0-2.0); EOSINOPHIL # 0.1 TH/MM3 (0-0.4); EOSINOPHIL % 0.4 % (0.0-4.0); HEMATOCRIT 49.4 % (39.0-51.0); HEMO FLAGS DIFF FINAL; LYMPH % 4.4 % (9.0-44.0); LYMPHOCYTE # 0.6 TH/MM3 (1.0-4.8); MEAN CELL VOLUME 87.5 FL (80.0-100.0); MEAN CORPUSCULAR HEMOGLOBIN 29.4 PG (27.0-34.0); MEAN CORPUSCULAR HGB CONC 33.6 % (32.0-36.0); NEUT % 88.7 % (16.0-70.0); PLATELET COUNT 258 TH/MM3 (150-450); RED BLOOD COUNT 5.65 MIL/MM3 (4.50-5.90); RED CELL DISTRIBUTION WIDTH 13.7 % (11.6-17.2); WHITE BLOOD COUNT 12.7 TH/MM3 (4.0-11.0)
[2017-02-21 22:58] LABS: COMMENT (UR) CATH-CULT NOT IND; CULTURE IF INDICATED CATH CULTURE NOT IND
[2017-02-21 23:08] LABS: APTT (PATIENT) 24.7 SEC (24.3-30.1); INTERNATIONAL NORMALIZED RATIO 0.9 RATIO
[2017-02-21 23:18] LABS: ALT (GPT) 37 U/L (12-78); ANION GAP 6 MEQ/L (5-15); AST (GOT) 23 U/L (15-37); BICARBONATE 28.2 MEQ/L (21.0-32.0); BLOOD UREA NITROGEN 12 MG/DL (7-18); CHLORIDE 102 MEQ/L (98-107); GLOMERULAR FILTRATION RATE 68 ML/MIN (>89); MAGNESIUM 1.7 MG/DL (1.5-2.5); POTASSIUM 4.3 MEQ/L (3.5-5.1); SODIUM (NA) 136 MEQ/L (136-145)
[2017-02-21 23:21] LABS: ALKALINE PHOSPHATASE 70 U/L (45-117); CREATINE KINASE 164 U/L (39-308); TOTAL BILIRUBIN ADULT 0.5 MG/DL (0.2-1.0)
[2017-02-21] MEDS ORDERED: ONDANSETRON HCL 4 MG/2 ML VIAL IV PUSH ONE (23:30)
[2017-02-21 23:33] LABS: CKMB 0.8 NG/ML (0.5-3.6)
[2017-02-21] MEDS ORDERED: ACETAMINOPHEN 325 MG TAB PO ONE (23:45)
[2017-02-21] MEDS ORDERED: KETOROLAC TROMETHAMINE 30 MG/ML (IVP) VIAL IV PUSH ONE (23:45)
[2017-02-22] VITALS (16 sets, daily range): BP systolic 90–134; BP diastolic 50–70; PULSE 95–116; RESP 18–20; TEMP 97.5–102.7; O2SAT 95–97
[2017-02-22] MEDS ORDERED: IOHEXOL 350 MG/ML 10 ML VIAL (for RAD DIAG) IVCONTRAST ONE (00:38)
--- NOTE | 2017-02-22 00:49 | RADRPT ---
EXAM DATE/TIME: 02/22/2017 00:26 [facility] COMPARISON: CT PULMONARY ANGIOGRAM, August 04, 2016, 20:22. INDICATIONS : Short of breath. IV CONTRAST: 100 cc Omnipaque 350 (iohexol) IV ; Cumulative dose for multiple exams. RADIATION DOSE: 16.58 CTDIvol (mGy) MEDICAL HISTORY : Deep venous thrombosis. Renal calculi. SURGICAL HISTORY : None. ENCOUNTER: Initial ACUITY: 1 day PAIN SCALE: 0/10 LOCATION: chest TECHNIQUE: Volumetric scanning of the chest was performed using a pulmonary embolism protocol MIP images were re constructed. Using automated exposure control and adjustment of the mA and/or kV according to patien t size, radiation dose was kept as low as reasonably achievable to obtain optimal diagnostic quality images. DICOM format image data is available electronically for review and comparison. Follow-up recommendations for detected pulmonary nodules are based at a minimum on nodule size and pa tient risk factors according to Fleischner Society Guidelines. FINDINGS: PULMONARY ARTERIES: There is suboptimal opacification of the pulmonary arteries limiting the sensitivity. No filling defe cts are seen in the pulmonary arteries through the segmental level. LUNGS: There is no consolidation or pneumothorax . No concerning pulmonary nodule is visualized. PLEURAE: There is no pleural thickening or pleural effusion. MEDIASTINUM: There is good visualization of the great vessels of the middle mediastinum. No evidence of mediastin al or hilar adenopathy/mass. MUSCULOSKELETAL: Within normal limits for patient age. MISCELLANEOUS: The visualized upper abdominal organs demonstrate no acute abnormality. CONCLUSION: Negative exam. There was suboptimal opacification of the pulmonary arterial system limiting the sensi tivity. Iron Downs MD on February 22, 2017 at 0:45 Board Certified Radiologist. This report was verified electronically.
--- NOTE | 2017-02-22 00:54 | RADRPT ---
EXAM DATE/TIME: 02/22/2017 00:26 [facility] COMPARISON: CT ABDOMEN & PELVIS W CONTRAST, May 07, 2016, 10:21. INDICATIONS : Abdominal pain.. Known adenopathy. IV CONTRAST: 100 cc Omnipaque 350 (iohexol) IV ; Cumulative dose for multiple exams. ORAL CONTRAST: No oral contrast ingested. RADIATION DOSE: 18.01 CTDIvol (mGy) MEDICAL HISTORY : Deep venous thrombosis. Renal calculi. SURGICAL HISTORY : None. ENCOUNTER: Initial ACUITY: 1 day PAIN SCALE: 5/10 LOCATION: abdomen TECHNIQUE: Volumetric scanning of the abdomen and pelvis was performed. Using automated exposure control and ad justment of the mA and/or kV according to patient size, radiation dose was kept as low as reasonably achievable to obtain optimal diagnostic quality images. DICOM format image data is available electro nically for review and comparison. FINDINGS: LOWER LUNGS: The visualized lower lungs are clear. LIVER: Homogeneous density without lesion. Moderate hepatic steatosis is again noted. There is no dilation o f the biliary tree. No calcified gallstones. SPLEEN: Normal size without lesion. PANCREAS: Within normal limits. KIDNEYS: Normal in size and shape. There is no mass, stone or hydronephrosis. ADRENAL GLANDS: Within normal limits. VASCULAR: There is no aortic aneurysm. BOWEL/MESENTERY: The stomach, small bowel, and colon demonstrate no acute abnormality. There is no free intraperitone al air or fluid. ABDOMINAL WALL: Within normal limits. RETROPERITONEUM: There is stable bilateral external iliac chain adenopathy right slightly greater than left. BLADDER: No wall thickening or mass. REPRODUCTIVE: Within normal limits. INGUINAL: There is stable bilateral inguinal adenopathy. MUSCULOSKELETAL: Within normal limits for patient age. CONCLUSION: 1. Stable external iliac and bilateral inguinal adenopathy. 2. Moderate hepatic steatosis again noted. Iron Downs MD on February 22, 2017 at 0:48 Board Certified Radiologist. This report was verified electronically.
[2017-02-22] MEDS ORDERED: PIPERACIL-TAZO 4.5 GM PREMIX 100 ML IV ONE (01:15)
[2017-02-22] MEDS ORDERED: VANCOMYCIN INJ 1,000 MG in SODIUM CHLOR 0.9% 250 ML INJ 250 ML IV ONE (01:15)
[2017-02-22] MEDS ORDERED: SODIUM CHLOR 0.9% 1000 ML INJ 1,000 ML IV ONE ×2 (01:15→02:00)
[2017-02-22] MEDS ORDERED: MAGNESIUM HYDROXIDE SUSP 30 ML CUP PO PRN (04:00)
[2017-02-22] MEDS ORDERED: ACETAMINOPHEN/HYDROcodone 325 MG/10 MG TAB PO PRN (04:00)
[2017-02-22] MEDS ORDERED: Vancomycin Consult Pharmacy 1 EA OTHER SCH (04:00)
[2017-02-22] MEDS ORDERED: BISACODYL 10 MG SUPP RECTAL PRN (04:00)
[2017-02-22] MEDS ORDERED: SODIUM CHLORIDE 0.9% FLUSH 10 ML FLUSH IV FLUSH PRN (04:00)
[2017-02-22] MEDS ORDERED: ACETAMINOPHEN/HYDROcodone 325 MG/5 MG TAB PO PRN (04:00)
[2017-02-22] MEDS ORDERED: SENNOSIDES 8.6 MG TAB PO PRN (04:00)
[2017-02-22] MEDS ORDERED: LACTULOSE SYRUP 20 GM/30 ML CUP PO PRN (04:00)
--- NOTE | 2017-02-22 04:14 | HHI.HP ---
HPI Service [facility] Primary Care Physician No Primary Care Physician Admission Diagnosis Sepsis/Cellulitis Diagnoses: (1) Sepsis Diagnosis: Principal (2) Hypotension Diagnosis: Principal (3) Cellulitis Diagnosis: Principal (4) Dehydration Diagnosis: Principal Travel History International Travel<30 Days: No Contact w/Intl Traveler <30 Da: No Traveled to Known Affected Are: No History of Present Illness This is a 41-year-old male with a PMH of HTN, Depression, h/o DVT and Chronic LE Cellulitis who presented to the ER w/ complaints of fever, headache and SOB starting few hours prior to arrival. Denies chest pain, cough or sick contacts. No nausea, vomiting or diarrhea. On arrival, BP 151/73, HR 145, O2 sat 96% on RA, Temp 103.1. While in ER, had episode of hypotension w/ BP 90's systolic, s/p 3L IVF w/ good response. BP currently 126/66, HR 101. WBC 12.7. Chemistry unremarkable except for GFR 68. Troponin negative. INR 0.9. UA negative. CXR with no acute findings. CTA Pulm negative for PE. CT Abd/ Pelvis w/ stable external iliac and bilateral inguinal adenopathy, moderate hepatic steatosis, no acute findings. S/p Blood Cultures, Vanc/Zosyn in ER. Review of Systems Except as stated in HPI: all other systems reviewed are Neg ROS: 14 point review of systems otherwise negative. Past Family Social History Past Medical History PMH: HTN, Depression, h/o DVT and Chronic LE Cellulitis Past Surgical History PAST SURGICAL HISTORY: Lithotripsy, Tonsillectomy Allergies: Coded Allergies: strawberry (Verified Allergy, Severe, Anaphylaxis, 02/21/17) THROAT CLOSES /RASH Family History PAST FAMILY HISTORY: Reviewed. No h/o DM or CAD Social History PAST SOCIAL HISTORY: Negative for alcohol, tobacco or drugs. Physical Exam Vital Signs Vital Signs Date Time Temp Pulse Resp B/P (MAP) Pulse Ox O2 Delivery O2 Flow Rate FiO2 02/22/17 03:06 101 126/66 (86) 02/22/17 02:54 101 97/64 (75) 97 Room Air 02/22/17 02:20 104 91/53 (66) 02/22/17 02:06 104 92/53 (66) 02/22/17 01:57 108 20 90/50 (63) 96 02/22/17 01:38 116 95/51 (66) 96 Room Air 02/22/17 01:30 113 02/22/17 01:20 97.5 114 18 96/51 (66) 95 Room Air 02/22/17 01:20 Room Air 02/21/17 22:16 103.0 129 146/81 (102) 02/21/17 22:04 103.1 145 20 151/73 (99) 96 Room Air Physical Exam PE: GENERAL: Middle-aged white male in no acute distress. HEENT: PERRLA, EOMI. No scleral icterus or conjunctival pallor. No lid lag or facial droop. +facial flushing. CARDIOVASCULAR: Regular rate and rhythm. No obvious murmurs to auscultation. No chest tenderness to palpation. RESPIRATORY: No obvious rhonchi or wheezing. Clear to auscultation. Breath sounds equal bilaterally. GASTROINTESTINAL: Abdomen soft, non-tender, nondistended. BS normal. MUSCULOSKELETAL: Extremities without clubbing, cyanosis, or edema. No obvious deformities. NEUROLOGICAL: Awake, alert and oriented x4. No focal neurologic deficits. Moving both upper and lower extremities spontaneously. Laboratory Laboratory Tests Test 02/21/17 22:31 02/21/17 22:32 02/21/17 22:33 Lactic Acid Level 1.9 White Blood Count 12.7 Red Blood Count 5.65 Hemoglobin 16.6 Hematocrit 49.4 Mean Corpuscular Volume 87.5 Mean Corpuscular Hemoglobin 29.4 Mean Corpuscular Hemoglobin Concent 33.6 Red Cell Distribution Width 13.7 Platelet Count 258 Mean Platelet Volume 8.9 Neutrophils (%) (Auto) 88.7 Lymphocytes (%) (Auto) 4.4 Monocytes (%) (Auto) 6.0 Eosinophils (%) (Auto) 0.4 Basophils (%) (Auto) 0.5 Neutrophils # (Auto) 11.3 Lymphocytes # (Auto) 0.6 Monocytes # (Auto) 0.8 Eosinophils # (Auto) 0.1 Basophils # (Auto) 0.1 CBC Comment DIFF FINAL Differential Comment Prothrombin Time 10.0 Prothromb Time International Ratio 0.9 Activated Partial Thromboplast Time 24.7 Blood Urea Nitrogen 12 Creatinine 1.18 Random Glucose 122 Total Protein 8.7 Albumin 3.9 Calcium Level 9.2 Phosphorus Level 0.7 Magnesium Level 1.7 Alkaline Phosphatase 70 Aspartate Amino Transf (AST/SGOT) 23 Alanine Aminotransferase (ALT/SGPT) 37 Total Bilirubin 0.5 Sodium Level 136 Potassium Level 4.3 Chloride Level 102 Carbon Dioxide Level 28.2 Anion Gap 6 Estimat Glomerular Filtration Rate 68 Total Creatine Kinase 164 Creatine Kinase MB 0.8 Troponin I LESS THAN 0.02 Lipase 145 Urine Color YELLOW Urine Turbidity CLEAR Urine pH 7.0 Urine Specific [place] 1.017 Urine Protein TRACE Urine Glucose (UA) NEG Urine Ketones NEG Urine Occult Blood NEG Urine Nitrite NEG Urine Bilirubin NEG Urine Urobilinogen 2.0 Urine Leukocyte Esterase NEG Urine RBC LESS THAN 1 Urine WBC LESS THAN 1 Urine Squamous Epithelial Cells 1 Urine Mucus FEW Microscopic Urinalysis Comment CATH-CULT NOT IND Date/Time Source Procedure Growth Status 02/21/17 22:25 Blood Peripheral Aerobic Blood Culture Pending Received 02/21/17 22:25 Blood Peripheral Anaerobic Blood Culture Pending Received 02/21/17 23:24 Nasal Aspirate Influenza Types A,B Antigen (NAKUL) - Final NEGATIVE FOR FLU A AND B ANTIGEN.... Complete Result Diagram: 02/21/17223102/21/172231 Caprini VTE Risk Assessment Caprini VTE Risk Assessment: Mod/High Risk (score >= 2) Caprini Risk Assessment Model Point Value = 1 Point Value = 2 Point Value = 3 Point Value = 5 Age 41-60 Minor surgery BMI > 25 kg/m2 Swollen legs Varicose veins or History of unexplained or recurrent spontaneous Oral contraceptives or hormone replacement Sepsis (< 1 month) Serious lung disease, including pneumonia (< 1 month) Abnormal pulmonary function Acute myocardial infarction Congestive heart failure (< 1 month) History of inflammatory bowel disease Medical patient at bed rest Age 61-74 Arthroscopic surgery Major open surgery (> 45 min) Laparoscopic surgery (> 45 min) Malignancy Confined to bed (> 72 hours) Immobilizing plaster cast Central venous access Age >= 75 History of VTE Family history of VTE Factor V Leiden Prothrombin [id number] Lupus anticoagulant Anticardiolipin antibodies Elevated serum homocysteine Heparin-induced thrombocytopenia Other congenital or acquired thrombophilia Stroke (< 1 month) Elective arthroplasty Hip, pelvis, or leg fracture Acute spinal cord injury (< 1 month) Prophylaxis Regimen Total Risk Factor Score Risk Level Prophylaxis Regimen 0-1 Low Early ambulation 2 Moderate Order ONE of the following: *Sequential Compression Device (SCD) *Heparin 5000 units SQ BID 3-4 Higher Order ONE of the following medications: *Heparin 5000 units SQ TID *Enoxaparin/Lovenox 40 mg SQ daily (WT < 150 kg, CrCl > 30 mL/min) *Enoxaparin/Lovenox 30 mg SQ daily (WT < 150 kg, CrCl > 10-29 mL/min) *Enoxaparin/Lovenox 30 mg SQ BID (WT < 150 kg, CrCl > 30 mL/min) AND/OR *Sequential Compression Device (SCD) 5 or more Highest Order ONE of the following medications: *Heparin 5000 units SQ TID (Preferred with Epidurals) *Enoxaparin/Lovenox 40 mg SQ daily (WT < 150 kg, CrCl > 30 mL/min) *Enoxaparin/Lovenox 30 mg SQ daily (WT < 150 kg, CrCl > 10-29 mL/min) *Enoxaparin/Lovenox 30 mg SQ BID (WT < 150 kg, CrCl > 30 mL/min) AND *Sequential Compression Device (SCD) Assessment and Plan Problem List: (1) Sepsis ICD Code: A41.9 - Sepsis, unspecified organism Status: Acute (2) Hypotension ICD Code: I95.9 - Hypotension, unspecified (3) Cellulitis ICD Code: L03.90 - Cellulitis, unspecified (4) Dehydration ICD Code: E86.0 - Dehydration Assessment and Plan A/P: 1. Sepsis: Temp 103.1, HR 140's, WBC 12.7, Source-likely Cellulitis. S/p Blood Cultures, Vanc/Zosyn in ER. Follow up cultures, continue IV Abx. CXR/ CTA Pulm w/ no acute findings, CT Abd/Pelvis negative for acute findings, images reviewed by me. 2. Hypotension: secondary to sepsis. BP 90's while in ER, s/p 3L IVF w/ response, BP currently 120's systolic, HR 101. Will monitor BP. 3. Cellulitis: Lower Extremity. Acute on Chronic. Continue w/ IV Abx as above. 4. Dehydration: GFR 68. U/a negative for infection. IVF for hydration, repeat labs in am. 5. DVT Prophylaxis: H/o DVT on Xarelto, will resume 6. Social work for d/c planning as needed. 7. Case discussed w/ ER physician at length. Physician Certification 2 Midnight Certification Type: Admission for Inpatient Services Order for Inpatient Services The services are ordered in accordance with Medicare regulations or non- Medicare payer requirements, as applicable. In the case of services not specified as inpatient-only, they are appropriately provided as inpatient services in accordance with the 2-midnight benchmark. Estimated LOS (days): 2 days is the estimated time the patient will need to remain in the hospital, assuming treatment plan goals are met and no additional complications. Post-Hospital Plan: Not yet determined Jaycee Koenig MD Feb 22, 2017 04:14
[2017-02-22] MEDS: SODIUM CHLOR 0.9% 1000 ML INJ 1,000 ML IV SCH ×4 (04:20→19:38)
[2017-02-22] MEDS ORDERED: VANCOMYCIN 1,000 MG/NS 250 ML IV ONE ×2 (04:30)
[2017-02-22] MEDS: SODIUM CHLORIDE 0.9% FLUSH 10 ML FLUSH IV FLUSH SCH ×2 (07:27→19:37)
[2017-02-22] MEDS: DOCUSATE SODIUM 50 MG/SENNA 8.6 MG TAB PO SCH ×2 (08:06→19:38)
[2017-02-22] MEDS: ACETAMINOPHEN 325 MG TAB PO PRN ×2 (08:06→15:11)
[2017-02-22] MEDS: RIVAROXABAN 20 MG TAB PO SCH ×2 (08:06→19:38)
[2017-02-22] MEDS: CEFEPIME INJ 1,000 MG in SODIUM CHLORIDE 0.9% INJ 100 ML IV SCH ×2 (12:18→23:40)
--- NOTE | 2017-02-22 17:16 | EKG ---
Date Performed: 02/21/2017 Time Performed: 22:43:21 PTAGE: 41 years EKG: SINUS TACHYCARDIA LOW QRS VOLTAGE IN PRECORDIAL LEADS INCOMPLETE RIGHT BUNDLE BRANCH BLOCK LEFT ANTERIOR FASCICULAR BLOCK POSSIBLE ANTERIOR MYOCARDIAL INFARCTION ABNORMAL ECG PREVIOUS TRACING : 08/04/2016 19.19 Compared to previous tracing Sinus tachy is new DOCTOR: Laurita Palmer Interpretating Date/Time 02/22/2017 17:15:31
[2017-02-22] MEDS: ONDANSETRON HCL 4 MG/2 ML VIAL IVP PRN (17:17)
[2017-02-22] MEDS: VANCOMYCIN INJ 2,000 MG in SODIUM CHLORID 0.9% 500 ML INJ 500 ML IV SCH (17:17)
--- NOTE | 2017-02-22 17:52 | PD.CONS ---
History of Present Illness Service Infectious disease Consult Requested By Dr. Lilian Ruiz Reason for Consult Evaluate patient with positive blood cultures Primary Care Physician No Primary Care Physician Diagnoses: History of Present Illness Patient seen and examined. Records reviewed. Patient is a 41-year-old morbidly obese male, presented to the hospital with 1 day history of acute fevers, or lies mildly, episode of nausea and vomiting, and 4 episodes of diarrhea. Patient has chronic lower extremity edema, and apparently has had problem with recurrent cellulitis. Some increased swelling on his right lower extremity compared to his left lower extremity and this all came about around the same time. He has not any sore throat or respiratory complaint. Denies any voiding problem. Patient has been febrile since admission. His white count is 12,000. 1 out of the 2 blood culture done in the emergency room is now reported as growing gram-positive cocci in chains. Infectious disease consultation has been requested to evaluate the patient. Review of Systems Constitutional: COMPLAINS OF: Fever, Chills, Night Sweats Eyes: DENIES: Eye pain Ears, nose, mouth, throat: DENIES: Nasal discharge, Oral lesions, Throat pain, Ear Pain, Sinus Pain Respiratory: DENIES: Cough, Sputum production, Shortness of breath Cardiovascular: COMPLAINS OF: Lower Extremity Edema, DENIES: Chest pain, Palpitations Gastrointestinal: COMPLAINS OF: Diarrhea, DENIES: Abdominal pain, Nausea, Vomiting, Difficulty Swallowing Genitourinary: DENIES: Urgency, Dysuria Musculoskeletal: COMPLAINS OF: Muscle aches Integumentary: DENIES: Rash Neurologic: DENIES: Headache Psychiatric: DENIES: Hallucinations Past Family Social History Allergies: Coded Allergies: strawberry (Verified Allergy, Severe, Anaphylaxis, 02/21/17) THROAT CLOSES /RASH Past Medical History Hypertension Depression DVT Chronic lower extremity edema, possible lymphedema Obesity Past Surgical History Lithotripsy Tonsillectomy Reported Medications I attest that I obtained, updated or reviewed the home and current medications. Reported Meds & Active Scripts Active Bactrim DS (Sulfamethoxazole-Trimethoprim) 800-160 Mg Tab 1 Tab PO BID Reported Xarelto (Rivaroxaban) 20 Mg Tab 20 Mg PO BID Active Ordered Medications Tylenol [place] Dulcolax prn Cefepime IV Lactulose prn MOM prn Zofran prn Xarelto Yarelis-Colace prn Senokot prn Vancomycin IV Family History Unremarkable Social History Lives alone Denies smoking Denies alcohol abuse Denies illicit drugs Physical Exam Vital Signs Vital Signs Date Time Temp Pulse Resp B/P (MAP) Pulse Ox O2 Delivery O2 Flow Rate FiO2 02/22/17 16:00 102.7 106 19 134/69 (90) 95 02/22/17 15:44 101.1 02/22/17 12:00 98.6 102 19 116/65 (82) 96 02/22/17 07:43 100.5 106 19 132/70 (90) 96 02/22/17 05:01 98.6 96 20 100/59 (73) 97 02/22/17 03:06 101 126/66 (86) 02/22/17 02:54 101 97/64 (75) 97 Room Air 02/22/17 02:20 104 91/53 (66) 02/22/17 02:06 104 92/53 (66) 02/22/17 01:57 108 20 90/50 (63) 96 02/22/17 01:38 116 95/51 (66) 96 Room Air 02/22/17 01:30 113 02/22/17 01:20 97.5 114 18 96/51 (66) 95 Room Air 02/22/17 01:20 Room Air 02/21/17 22:16 103.0 129 146/81 (102) 02/21/17 22:04 103.1 145 20 151/73 (99) 96 Room Air Physical Exam GENERAL: Patient is an obese, well-developed male, awake and alert, not in respiratory distress. SKIN: Warm and dry. No generalized rash, no ecchymoses and no evidence of embolic lesions. HEAD: Atraumatic. Normocephalic. No temporal wasting, or tenderness. EYES: [place] conjunctiva. No petechia or hemorrhage. Pupils equal, round and reactive to light. Extraocular movements full and intact. No scleral icterus. No injection or drainage. EARS, NOSE AND THROAT: Nose without bleeding or purulent nasal discharge. No sinus tenderness. Mucous membranes pink and moist. No oral lesions noted. No exudate. No oral thrush. NECK: Trachea midline. Supple and not tender, no meningeal signs CARDIOVASCULAR: Regular rate and rhythm. No murmurs, rubs or gallops heard RESPIRATORY: Clear to auscultation. Breath sounds equal bilaterally. No rales , wheezing or rhonchi. Decreased BS at bases ABDOMEN: Obese, not tender, bowel sounds present and normoactive. No guarding. No rebound. Limited exam due to size. EXTREMITIES: No clubbing, cyanosis. has amee pedal edema, RLE larger compared to the LLE. Has chronic brownish skin changes in both legs. Has patches of erythema in his R leg, and indurated in posterior R leg. No open draining wound seen. Well perfused and warm. NEUROLOGICAL: Awake and alert. Cranial nerves grossly intact. Motor grossly within normal limits. PSYCHIATRIC: Normal affect, calm and cooperative. LINE: No evidence of infection Laboratory Laboratory Tests Test 02/21/17 22:31 02/21/17 22:32 02/21/17 22:33 Lactic Acid Level 1.9 White Blood Count 12.7 Red Blood Count 5.65 Hemoglobin 16.6 Hematocrit 49.4 Mean Corpuscular Volume 87.5 Mean Corpuscular Hemoglobin 29.4 Mean Corpuscular Hemoglobin Concent 33.6 Red Cell Distribution Width 13.7 Platelet Count 258 Mean Platelet Volume 8.9 Neutrophils (%) (Auto) 88.7 Lymphocytes (%) (Auto) 4.4 Monocytes (%) (Auto) 6.0 Eosinophils (%) (Auto) 0.4 Basophils (%) (Auto) 0.5 Neutrophils # (Auto) 11.3 Lymphocytes # (Auto) 0.6 Monocytes # (Auto) 0.8 Eosinophils # (Auto) 0.1 Basophils # (Auto) 0.1 CBC Comment DIFF FINAL Differential Comment Prothrombin Time 10.0 Prothromb Time International Ratio 0.9 Activated Partial Thromboplast Time 24.7 Blood Urea Nitrogen 12 Creatinine 1.18 Random Glucose 122 Total Protein 8.7 Albumin 3.9 Calcium Level 9.2 Phosphorus Level 0.7 Magnesium Level 1.7 Alkaline Phosphatase 70 Aspartate Amino Transf (AST/SGOT) 23 Alanine Aminotransferase (ALT/SGPT) 37 Total Bilirubin 0.5 Sodium Level 136 Potassium Level 4.3 Chloride Level 102 Carbon Dioxide Level 28.2 Anion Gap 6 Estimat Glomerular Filtration Rate 68 Total Creatine Kinase 164 Creatine Kinase MB 0.8 Troponin I LESS THAN 0.02 Lipase 145 Urine Color YELLOW Urine Turbidity CLEAR Urine pH 7.0 Urine Specific [place] 1.017 Urine Protein TRACE Urine Glucose (UA) NEG Urine Ketones NEG Urine Occult Blood NEG Urine Nitrite NEG Urine Bilirubin NEG Urine Urobilinogen 2.0 Urine Leukocyte Esterase NEG Urine RBC LESS THAN 1 Urine WBC LESS THAN 1 Urine Squamous Epithelial Cells 1 Urine Mucus FEW Microscopic Urinalysis Comment CATH-CULT NOT IND Date/Time Source Procedure Growth Status 02/21/17 22:25 Blood Peripheral Aerobic Blood Culture - Preliminary NO GROWTH IN 1 DAY Resulted 02/21/17 22:25 Blood Peripheral Anaerobic Blood Culture - Preliminary NO GROWTH IN 1 DAY Resulted 02/21/17 23:24 Nasal Aspirate Influenza Types A,B Antigen (NAKUL) - Final NEGATIVE FOR FLU A AND B ANTIGEN.... Complete Result Diagram: 02/21/17223102/21/172231 Imaging Last Impressions Chest X-Ray 02/21/172222 Signed Impressions: Service Date/Time: Tuesday, February 21, 2017 22:26 - CONCLUSION: No acute disease. Rolando Adams MD CT Angiography 02/21/17 0000 Signed Impressions: Service Date/Time: Wednesday, February 22, 2017 00:26 - CONCLUSION: Negative exam. There was suboptimal opacification of the pulmonary arterial system limiting the sensitivity. Iron Downs MD Abdomen/Pelvis CT 02/21/17 0000 Signed Impressions: Service Date/Time: Wednesday, February 22, 2017 00:26 - CONCLUSION: 1. Stable external iliac and bilateral inguinal adenopathy. 2. Moderate hepatic steatosis again noted. Iron Downs MD Assessment and Plan Assessment and Plan IMPRESSION (+) BC, GPC in chains, ?Strep likely due to cellulitis RLE Cellulitis RLE Morbid obesity Amee LE chronic edema ?RANJITH RECOMMENDATION Continue current Abx: vanco and Zosyn Follow C/S Monitor temps Monitor progress Will determine course of Abx once C/S and work-up completed I will follow along with you Thank you for this consultation Discussed Condition With Explained plan to patient Janine Velásquez MD Feb 22, 2017 17:52
[2017-02-22] MEDS ORDERED: IBUPROFEN 400 MG TAB PO PRN (18:15)
[2017-02-22] MEDS ORDERED: ACETAMINOPHEN 1000 MG/100 ML 100 ML IV PRN (18:15)
[2017-02-23 00:38] VITALS: BP 134/76; PULSE 105; RESP 18; TEMP 99.7; O2SAT 91
[2017-02-23 04:00] VITALS: BP 130/71; PULSE 102; RESP 20; TEMP 101; O2SAT 92
[2017-02-23] MEDS: VANCOMYCIN INJ 2,000 MG in SODIUM CHLORID 0.9% 500 ML INJ 500 ML IV SCH ×2 (04:26→19:21)
[2017-02-23] MEDS: SODIUM CHLORIDE 0.9% FLUSH 10 ML FLUSH IV FLUSH SCH ×2 (07:43→21:18)
[2017-02-23] MEDS: SODIUM CHLOR 0.9% 1000 ML INJ 1,000 ML IV SCH ×2 (07:47→21:19)
[2017-02-23] MEDS: RIVAROXABAN 20 MG TAB PO SCH ×2 (07:47→21:17)
[2017-02-23] MEDS: DOCUSATE SODIUM 50 MG/SENNA 8.6 MG TAB PO SCH ×2 (07:47→21:17)
--- NOTE | 2017-02-23 07:53 | HHI.PR ---
Subjective Remarks With persistent fevers, sweating. No chest pain or sob. Feels nauseated and vomited once able to keep some food down. No d/c. Feeling very tired and sick. Objective Vitals Vital Signs Date Time Temp Pulse Resp B/P (MAP) Pulse Ox O2 Delivery O2 Flow Rate FiO2 02/23/17 04:00 101.0 102 20 130/71 (90) 92 02/23/17 00:38 99.7 105 18 134/76 (95) 91 02/22/17 21:55 95 02/22/17 21:31 100.0 98 18 117/59 (78) 95 02/22/17 17:30 101.0 02/22/17 16:00 102.7 106 19 134/69 (90) 95 02/22/17 15:44 101.1 02/22/17 12:00 98.6 102 19 116/65 (82) 96 I/O 02/22/17 02/22/17 02/22/17 02/23/17 02/23/17 02/23/17 07:00 15:00 23:00 07:00 15:00 23:00 Intake Total 3350 ml 470 ml 2570 ml 100 ml Output Total 600 ml 1200 ml 2050 ml Balance 2750 ml 470 ml 1370 ml -1950 ml Intake Oral 120 ml 1100 ml IV Total 3350 ml 350 ml 1470 ml 100 ml Output Urine Total 600 ml 1200 ml 2050 ml # Voids 3 # Bowel Movements 0 Result Diagram: 02/21/17223102/21/172231 Imaging Last Impressions Chest X-Ray 02/21/172222 Signed Impressions: Service Date/Time: Tuesday, February 21, 2017 22:26 - CONCLUSION: No acute disease. Rolando Adams MD CT Angiography 02/21/17 0000 Signed Impressions: Service Date/Time: Wednesday, February 22, 2017 00:26 - CONCLUSION: Negative exam. There was suboptimal opacification of the pulmonary arterial system limiting the sensitivity. Iron Downs MD Abdomen/Pelvis CT 02/21/17 0000 Signed Impressions: Service Date/Time: Wednesday, February 22, 2017 00:26 - CONCLUSION: 1. Stable external iliac and bilateral inguinal adenopathy. 2. Moderate hepatic steatosis again noted. Iron Downs MD Objective Remarks GENERAL: Middle-aged white male sweating, appears sick. HEENT: PERRLA, EOMI. No scleral icterus or conjunctival pallor. No lid lag or facial droop. +facial flushing. CARDIOVASCULAR: Regular rate and rhythm. No obvious murmurs to auscultation. No chest tenderness to palpation. RESPIRATORY: No obvious rhonchi or wheezing. Clear to auscultation. Breath sounds equal bilaterally. GASTROINTESTINAL: Abdomen soft, non-tender, nondistended. BS normal. MUSCULOSKELETAL: Extremities without clubbing, cyanosis, or edema. No obvious deformities. NEUROLOGICAL: Awake, alert and oriented x4. No focal neurologic deficits. Moving both upper and lower extremities spontaneously. A/P Problem List: (1) Sepsis ICD Code: A41.9 - Sepsis, unspecified organism Status: Acute (2) Hypotension ICD Code: I95.9 - Hypotension, unspecified (3) Cellulitis ICD Code: L03.90 - Cellulitis, unspecified (4) Dehydration ICD Code: E86.0 - Dehydration Assessment and Plan Sepsis: Temp 103.1, HR 140's, WBC 12.7, Source-likely Cellulitis. S/p Blood Cultures, Vanc/Zosyn in ER. Follow up cultures, continue IV Abx. CXR/CTA Pulm w/ no acute findings, CT Abd/Pelvis negative for acute findings, images reviewed by me. Patient with persistent fevers add Tylenol IV and also ibuprofen alternate if need, discussed with the nurse. Also Blood cx with 1 bottle GPC, will consult ID specialist as patient with persistent fevers, sepsis and 1/4 GPC blood cx Hypotension: secondary to sepsis. BP 90's while in ER, s/p 3L IVF w/ response , BP currently 120's systolic, HR 101. Will monitor BP. Cellulitis: Lower Extremity. Acute on Chronic. Continue w/ IV Abx as above. Dehydration: GFR 68. U/a negative for infection. IVF for hydration, repeat labs in am. DVT Prophylaxis: H/o DVT on Xarelto, will resume CM for d/c planning as needed. Discussed with the patient, nurse Destiny Ruiz MD Feb 23, 2017 07:53
[2017-02-23 08:00] VITALS: BP 123/72; PULSE 85; RESP 19; TEMP 98.4; O2SAT 97
[2017-02-23 08:35] LABS: AUTOMATED NEUTROPHIL # 7.6 TH/MM3 (1.8-7.7); BASOPHIL # 0.1 TH/MM3 (0-0.2); BASOPHIL % 0.6 % (0.0-2.0); HEMATOCRIT 41.3 % (39.0-51.0); HEMO FLAGS DIFF FINAL; LYMPHOCYTE # 0.6 TH/MM3 (1.0-4.8); MEAN CELL VOLUME 89.4 FL (80.0-100.0); MEAN CORPUSCULAR HEMOGLOBIN 29.1 PG (27.0-34.0); MEAN CORPUSCULAR HGB CONC 32.6 % (32.0-36.0); MONO % 8.4 % (0.0-8.0); PLATELET COUNT 150 TH/MM3 (150-450); RED BLOOD COUNT 4.63 MIL/MM3 (4.50-5.90); RED CELL DISTRIBUTION WIDTH 14.1 % (11.6-17.2)
[2017-02-23] MEDS ORDERED: INFLUENZA VIRUS VACCINE (QUADRIVALENT) 0.5 ML SYR IM ONE (09:00)
[2017-02-23 09:04] LABS: ALKALINE PHOSPHATASE 50 U/L (45-117); ALT (GPT) 31 U/L (12-78); ANION GAP 8 MEQ/L (5-15); AST (GOT) 23 U/L (15-37); BICARBONATE 23.2 MEQ/L (21.0-32.0); BLOOD UREA NITROGEN 9 MG/DL (7-18); CHLORIDE 106 MEQ/L (98-107); GLOMERULAR FILTRATION RATE 106 ML/MIN (>89); POTASSIUM 4.2 MEQ/L (3.5-5.1); SODIUM (NA) 137 MEQ/L (136-145); TOTAL BILIRUBIN ADULT 0.5 MG/DL (0.2-1.0)
[2017-02-23 12:00] VITALS: BP 132/76; PULSE 85; RESP 20; TEMP 98.2; O2SAT 96
[2017-02-23] MEDS: CEFEPIME INJ 1,000 MG in SODIUM CHLORIDE 0.9% INJ 100 ML IV SCH ×2 (12:11→23:41)
[2017-02-23 16:00] VITALS: BP 126/75; PULSE 78; RESP 20; TEMP 96.9; O2SAT 96
[2017-02-23] MEDS ORDERED: PHARMACY ORDERED LAB ONE (16:45)
[2017-02-23] MEDS: ONDANSETRON HCL 4 MG/2 ML VIAL IVP PRN (17:09)
[2017-02-23 21:31] VITALS: BP 131/88; PULSE 87; RESP 18; TEMP 97.8; O2SAT 97
[2017-02-24] VITALS (7 sets, daily range): BP systolic 124–144; BP diastolic 74–85; PULSE 83–103; RESP 18–20; TEMP 96.5–99.3; O2SAT 93–95
[2017-02-24] MEDS: ONDANSETRON HCL 4 MG/2 ML VIAL IVP PRN (04:56)
[2017-02-24] MEDS ORDERED: VANCOMYCIN INJ 2,250 MG in SODIUM CHLORID 0.9% 500 ML INJ 500 ML IV SCH (05:00)
[2017-02-24 07:29] LABS: AUTOMATED NEUTROPHIL # 6.4 TH/MM3 (1.8-7.7); BASOPHIL % 0.3 % (0.0-2.0); EOSINOPHIL # 0.1 TH/MM3 (0-0.4); EOSINOPHIL % 1.4 % (0.0-4.0); HEMATOCRIT 41.7 % (39.0-51.0); HEMO FLAGS DIFF FINAL; LYMPH % 9.3 % (9.0-44.0); LYMPHOCYTE # 0.8 TH/MM3 (1.0-4.8); MEAN CELL VOLUME 87.5 FL (80.0-100.0); MEAN CORPUSCULAR HEMOGLOBIN 29.4 PG (27.0-34.0); MEAN CORPUSCULAR HGB CONC 33.6 % (32.0-36.0); MONO % 9.3 % (0.0-8.0); NEUT % 79.7 % (16.0-70.0); PLATELET COUNT 186 TH/MM3 (150-450); RED BLOOD COUNT 4.77 MIL/MM3 (4.50-5.90); RED CELL DISTRIBUTION WIDTH 13.9 % (11.6-17.2); WHITE BLOOD COUNT 8.1 TH/MM3 (4.0-11.0)
[2017-02-24 07:49] LABS: BICARBONATE 27.9 MEQ/L (21.0-32.0); POTASSIUM 3.8 MEQ/L (3.5-5.1)
[2017-02-24] MEDS: SODIUM CHLORIDE 0.9% FLUSH 10 ML FLUSH IV FLUSH SCH ×2 (09:00→20:43)
[2017-02-24] MEDS: SODIUM CHLOR 0.9% 1000 ML INJ 1,000 ML IV SCH ×2 (09:27→15:51)
[2017-02-24] MEDS: RIVAROXABAN 20 MG TAB PO SCH ×2 (09:28→20:43)
[2017-02-24] MEDS: DOCUSATE SODIUM 50 MG/SENNA 8.6 MG TAB PO SCH ×2 (09:28→20:43)
[2017-02-24] MEDS ORDERED: METOCLOPRAMIDE HCL 10 MG/2 ML VIAL IV PUSH PRN (12:00)
--- NOTE | 2017-02-24 12:15 | HHI.IDPN ---
Subjective Subjective Remarks Patient is a 41-year-old morbidly obese male, presented to the hospital with 1 day history of acute fevers, or lies mildly, episode of nausea and vomiting, and 4 episodes of diarrhea. Patient has chronic lower extremity edema, and apparently has had problem with recurrent cellulitis. Some increased swelling on his right lower extremity compared to his left lower extremity and this all came about around the same time. He has not any sore throat or respiratory complaint. Denies any voiding problem. Patient has been febrile since admission. His white count is 12,000. 1 out of the 2 blood culture done in the emergency room is now reported as growing gram-positive cocci in chains. Infectious disease consultation has been requested to evaluate the patient. Notes reviewed Last fever >24 hours ago Main complaint is vomiting No abdominal pain Leg same No new (+) BC Only one (+) BC Lipase ok LFT ok CBC normal UA ok Antibiotics Vancomycin Zosyn I attest that I obtained, updated or reviewed the home and current medications. Current Medications Medications (Trade) Dose Ordered Sig/Rosendo Route Start Time Stop Time Status Last Admin Pharmacy Profile Note 0 ml @ 0 mls/hr UNSCH OTHER 02/22/17 04:00 Cefepime HCl 1000 mg/Sodium Chloride 100 ml @ 200 mls/hr Q12H IV 02/22/17 12:00 02/23/17 23:41 Sodium Chloride 1,000 ml @ 100 mls/hr Q10H IV 02/22/17 03:51 02/24/17 09:27 (NS Flush) 2 ml UNSCH PRN IV FLUSH 02/22/17 04:00 (NS Flush) 2 ml BID IV FLUSH 02/22/17 09:00 02/23/17 21:18 (Tylenol) 650 mg Q6H PRN PO 02/22/17 04:00 02/22/17 15:11 ([place] 5-325 Mg) 1 tab Q4H PRN PO 02/22/17 04:00 ([place] 10-325 Mg) 1 tab Q4H PRN PO 02/22/17 04:00 02/22/17 17:16 (Yarelis-Colace) 1 tab BID PO 02/22/17 09:00 02/24/17 09:28 (Milk Of Magnesia Liq) 30 ml Q12H PRN PO 02/22/17 04:00 (Senokot) 17.2 mg Q12H PRN PO 02/22/17 04:00 (Dulcolax Supp) 10 mg DAILY PRN RECTAL 02/22/17 04:00 (Lactulose Liq) 30 ml DAILY PRN PO 02/22/17 04:00 (Xarelto) 20 mg BID PO 02/22/17 09:00 02/24/17 09:28 (Motrin) 400 mg Q8H PRN PO 02/22/17 18:15 02/23/17 04:26 Acetaminophen 100 ml @ 400 mls/hr Q6H PRN IV 02/22/17 18:15 Vancomycin HCl 2250 mg/Sodium Chloride 522.5 ml @ 250 mls/hr Q12H IV 02/24/17 05:00 02/24/17 04:56 Miscellaneous Information SPECIFIC LAB TO BE ENID... ONCE ONCE .XX 02/25/17 04:45 02/25/17 04:46 (Reglan Inj) 5 mg Q8H PRN IV PUSH 02/24/17 12:00 Lines PIV Past Medical History Hypertension Depression DVT Chronic lower extremity edema, possible lymphedema Obesity Past Surgical History Lithotripsy Tonsillectomy Allergies: Coded Allergies: strawberry (Verified Allergy, Severe, Anaphylaxis, 02/21/17) THROAT CLOSES /RASH Objective . Vital Signs Date Time Temp Pulse Resp B/P (MAP) Pulse Ox O2 Delivery O2 Flow Rate FiO2 02/24/17 08:00 96.5 88 19 136/85 (102) 94 02/24/17 05:04 97.9 92 20 132/74 (93) 93 02/24/17 00:31 99.3 103 18 135/83 (100) 93 02/23/17 21:31 97.8 87 18 131/88 (102) 97 02/23/17 16:00 96.9 78 20 126/75 (92) 96 . Laboratory Tests Test 02/23/17 06:42 02/24/17 05:51 White Blood Count 9.0 TH/MM3 8.1 TH/MM3 Red Blood Count 4.63 MIL/MM3 4.77 MIL/MM3 Hemoglobin 13.5 GM/DL 14.0 GM/DL Hematocrit 41.3 % 41.7 % Mean Corpuscular Volume 89.4 FL 87.5 FL Mean Corpuscular Hemoglobin 29.1 PG 29.4 PG Mean Corpuscular Hemoglobin Concent 32.6 % 33.6 % Red Cell Distribution Width 14.1 % 13.9 % Platelet Count 150 TH/MM3 186 TH/MM3 Mean Platelet Volume 9.0 FL 8.9 FL Neutrophils (%) (Auto) 84.0 % 79.7 % Lymphocytes (%) (Auto) 7.0 % 9.3 % Monocytes (%) (Auto) 8.4 % 9.3 % Eosinophils (%) (Auto) 0.0 % 1.4 % Basophils (%) (Auto) 0.6 % 0.3 % Neutrophils # (Auto) 7.6 TH/MM3 6.4 TH/MM3 Lymphocytes # (Auto) 0.6 TH/MM3 0.8 TH/MM3 Monocytes # (Auto) 0.8 TH/MM3 0.7 TH/MM3 Eosinophils # (Auto) 0.0 TH/MM3 0.1 TH/MM3 Basophils # (Auto) 0.1 TH/MM3 0.0 TH/MM3 CBC Comment DIFF FINAL DIFF FINAL Differential Comment Laboratory Tests Test 02/23/17 06:42 02/24/17 05:51 Blood Urea Nitrogen 9 MG/DL 9 MG/DL Creatinine 0.80 MG/DL 0.73 MG/DL Random Glucose 106 MG/DL 94 MG/DL Total Protein 6.7 GM/DL Albumin 2.7 GM/DL Calcium Level 8.0 MG/DL 8.2 MG/DL Alkaline Phosphatase 50 U/L Aspartate Amino Transf (AST/SGOT) 23 U/L Alanine Aminotransferase (ALT/SGPT) 31 U/L Total Bilirubin 0.5 MG/DL Sodium Level 137 MEQ/L 138 MEQ/L Potassium Level 4.2 MEQ/L 3.8 MEQ/L Chloride Level 106 MEQ/L 103 MEQ/L Carbon Dioxide Level 23.2 MEQ/L 27.9 MEQ/L Anion Gap 8 MEQ/L 7 MEQ/L Estimat Glomerular Filtration Rate 106 ML/MIN 118 ML/MIN Microbiology Date/Time Source Procedure Growth Status 02/22/17 18:38 Blood Peripheral Aerobic Blood Culture - Preliminary NO GROWTH IN 2 DAYS Resulted 02/22/17 18:38 Blood Peripheral Anaerobic Blood Culture - Preliminary NO GROWTH IN 2 DAYS Resulted 02/22/17 18:33 Blood Peripheral Aerobic Blood Culture - Preliminary NO GROWTH IN 2 DAYS Resulted 02/22/17 18:33 Blood Peripheral Anaerobic Blood Culture - Preliminary NO GROWTH IN 2 DAYS Resulted 02/21/17 22:25 Blood Peripheral Aerobic Blood Culture - Preliminary NO GROWTH IN 3 DAYS Resulted 02/21/17 22:25 Blood Peripheral Anaerobic Blood Culture - Preliminary NO GROWTH IN 3 DAYS Resulted 02/21/17 22:10 Blood Peripheral Aerobic Blood Culture - Final Strep Not A,B D Resulted 02/21/17 22:10 Blood Peripheral Anaerobic Blood Culture - Preliminary NO GROWTH IN 3 DAYS Resulted 02/21/17 23:24 Nasal Aspirate Influenza Types A,B Antigen (NAKUL) - Final NEGATIVE FOR FLU A AND B ANTIGEN.... Complete Imaging Last Impressions Chest X-Ray 02/21/173 Signed Impressions: Service Date/Time: Tuesday, February 21, 2017 22:26 - CONCLUSION: No acute disease. Rolando Adams MD CT Angiography 02/21/17 0000 Signed Impressions: Service Date/Time: Wednesday, February 22, 2017 00:26 - CONCLUSION: Negative exam. There was suboptimal opacification of the pulmonary arterial system limiting the sensitivity. Iron Downs MD Abdomen/Pelvis CT 02/21/17 0000 Signed Impressions: Service Date/Time: Wednesday, February 22, 2017 00:26 - CONCLUSION: 1. Stable external iliac and bilateral inguinal adenopathy. 2. Moderate hepatic steatosis again noted. Iron Downs MD Physical Exam GENERAL: awake and alert, not in respiratory distress. SKIN: Warm and dry. No generalized rash HEAD: Atraumatic. Normocephalic. No temporal wasting, or tenderness. EYES: [place] conjunctiva. No petechia or hemorrhage. Pupils equal, round and reactive to light. Extraocular movements full and intact. No scleral icterus. No injection or drainage. EARS, NOSE AND THROAT: Nose without bleeding or purulent nasal discharge. No sinus tenderness. Mucous membranes pink and moist. No oral lesions noted. No exudate. No oral thrush. NECK: Trachea midline. Supple and not tender, no meningeal signs CARDIOVASCULAR: Regular rate and rhythm. No murmurs, rubs or gallops heard RESPIRATORY: Clear to auscultation. Breath sounds equal bilaterally. No rales , wheezing or rhonchi. Decreased BS at bases ABDOMEN: Obese, not tender, bowel sounds present and normoactive. No guarding. No rebound. Limited exam due to size. EXTREMITIES: No clubbing, cyanosis. has amee pedal edema, RLE larger compared to the LLE. Has chronic brownish skin changes in both legs. Has improving patches of erythema in his R leg, and indurated in posterior R leg. No open draining wound seen. Well perfused and warm. NEUROLOGICAL: Awake and alert. Cranial nerves grossly intact. Motor grossly within normal limits. PSYCHIATRIC: Normal affect, calm and cooperative. LINE: No evidence of infection Assessment & Plan Remarks IMPRESSION (+) BC, one with Strep Cellulitis RLE Fevers, better Morbid obesity Amee LE chronic edema ?RANJITH RECOMMENDATION Change to Rocephin [place] stockings to BLE Monitor progress If stable, and no fever, should be able to D/C home with Levaquin 750 daily x 10 days Patient instructed on how to use [place] stockings, and importance of controlling edema Janine Velásquez MD Feb 24, 2017 12:15
[2017-02-24] MEDS ORDERED: cefTRIAXone INJ 2,000 MG in SODIUM CHLORIDE 0.9% INJ 100 ML IV SCH (14:00)
--- NOTE | 2017-02-24 14:48 | HHI.PR ---
Subjective Remarks Complaints of nausea today. Lower extremities are improving. Subclinical fever Objective Vital Signs Date Time Temp Pulse Resp B/P (MAP) Pulse Ox O2 Delivery O2 Flow Rate FiO2 02/24/17 12:00 98.3 83 19 141/82 (101) 95 02/24/17 08:00 96.5 88 19 136/85 (102) 94 02/24/17 05:04 97.9 92 20 132/74 (93) 93 02/24/17 00:31 99.3 103 18 135/83 (100) 93 02/23/17 21:31 97.8 87 18 131/88 (102) 97 02/23/17 16:00 96.9 78 20 126/75 (92) 96 I/O 02/23/17 02/23/17 02/23/17 02/24/17 02/24/17 02/24/17 07:00 15:00 23:00 07:00 15:00 23:00 Intake Total 100 ml 220 ml 1000 ml 1100 ml Output Total 2050 ml 800 ml 1250 ml Balance -1950 ml 220 ml 200 ml -150 ml Intake Oral 120 ml 1000 ml IV Total 100 ml 100 ml 1100 ml Output Urine Total 2050 ml 800 ml 1250 ml # Bowel Movements 1 Result Diagram: 02/24/1751 02/24/1751 Objective Remarks GENERAL: NAD, A&Ox3 HEAD: Normocephalic. NECK: Supple, trachea midline. No lymphadenopathy. EYES: No scleral icterus. No injection or drainage. CARDIOVASCULAR: Regular rate and rhythm without murmurs, gallops, or rubs. RESPIRATORY: Breath sounds equal bilaterally. No accessory muscle use. GASTROINTESTINAL: Abdomen soft, non-tender, nondistended. MUSCULOSKELETAL: No cyanosis. Bilateral lower extremity edema with improving cellulitis. SKIN: Warm and dry. NEURO: No focal neurological deficitis. A/P Problem List: (1) Sepsis ICD Code: A41.9 - Sepsis, unspecified organism Status: Acute (2) Cellulitis ICD Code: L03.90 - Cellulitis, unspecified (3) Dehydration ICD Code: E86.0 - Dehydration Assessment and Plan Assessment and Plan 41-year-old male admitted secondary to cellulitis Recurrent cellulitis bilateral lower extremities Now on Rocephin Plan to change to by mouth Levaquin once patient has further improvement Follow clinically for improvement ID following Sepsis Resolved Hypotension Resolved Nausea Vomiting Dehydration Zofran is of no benefit and is discontinued Trial of Reglan DVT Prophylaxis Xarelto Discharge Planning Plan to discharge on xarelto and levaquin if improving further Will need improved PO intake prior to discharge Herbert Washington MD Feb 24, 2017 14:48
[2017-02-25] MEDS: SODIUM CHLOR 0.9% 1000 ML INJ 1,000 ML IV SCH
[2017-02-25 00:26] VITALS: BP 134/86; PULSE 79; RESP 20; TEMP 99.2; O2SAT 96
[2017-02-25 04:09] VITALS: BP 139/86; PULSE 76; RESP 18; TEMP 98.6; O2SAT 97
[2017-02-25] MEDS ORDERED: PHARMACY ORDERED LAB ONE (04:45)
[2017-02-25 07:56] VITALS: BP 147/90; PULSE 76; RESP 20; TEMP 97.7; O2SAT 95
[2017-02-25] MEDS ORDERED: LEVA750T9 PO (09:24)
[2017-02-25] MEDS ORDERED: LACTTAB8 PO (09:24)
--- NOTE | 2017-02-25 09:32 | HHI.DS ---
Discharge Summary Admission Date Feb 22, 2017 at 03:32 Discharge Date: Feb 25, 2017 Admitting Diagnosis Sepsis/Cellulitis (1) Sepsis ICD Code: A41.9 - Sepsis, unspecified organism Diagnosis: Principal Status: Acute (2) Hypotension ICD Code: I95.9 - Hypotension, unspecified Diagnosis: Principal (3) Cellulitis ICD Code: L03.90 - Cellulitis, unspecified Diagnosis: Principal (4) Dehydration ICD Code: E86.0 - Dehydration Diagnosis: Principal Procedures None Brief History - From Admission This is a 41-year-old male with a PMH of HTN, Depression, h/o DVT and Chronic LE Cellulitis who presented to the ER w/ complaints of fever, headache and SOB starting few hours prior to arrival. Denies chest pain, cough or sick contacts. No nausea, vomiting or diarrhea. On arrival, BP 151/73, HR 145, O2 sat 96% on RA, Temp 103.1. While in ER, had episode of hypotension w/ BP 90's systolic, s/p 3L IVF w/ good response. BP currently 126/66, HR 101. WBC 12.7. Chemistry unremarkable except for GFR 68. Troponin negative. INR 0.9. UA negative. CXR with no acute findings. CTA Pulm negative for PE. CT Abd/ Pelvis w/ stable external iliac and bilateral inguinal adenopathy, moderate hepatic steatosis, no acute findings. S/p Blood Cultures, Vanc/Zosyn in ER. CBC/BMP: 02/24/17 0551 02/24/17 0551 Significant Findings Laboratory Tests Test 02/23/17 06:42 02/23/17 19:25 02/24/17 05:51 Neutrophils (%) (Auto) 84.0 % (16.0-70.0) 79.7 % (16.0-70.0) Lymphocytes (%) (Auto) 7.0 % (9.0-44.0) Monocytes (%) (Auto) 8.4 % (0.0-8.0) 9.3 % (0.0-8.0) Lymphocytes # (Auto) 0.6 TH/MM3 (1.0-4.8) 0.8 TH/MM3 (1.0-4.8) Albumin 2.7 GM/DL (3.4-5.0) Calcium Level 8.0 MG/DL (8.5-10.1) 8.2 MG/DL (8.5-10.1) PE at Discharge GENERAL: Middle-aged white male sweating, appears sick. HEENT: PERRLA, EOMI. No scleral icterus or conjunctival pallor. No lid lag or facial droop. +facial flushing. CARDIOVASCULAR: Regular rate and rhythm. No obvious murmurs to auscultation. No chest tenderness to palpation. RESPIRATORY: No obvious rhonchi or wheezing. Clear to auscultation. Breath sounds equal bilaterally. GASTROINTESTINAL: Abdomen soft, non-tender, nondistended. BS normal. MUSCULOSKELETAL: Extremities without clubbing, cyanosis, or edema. No obvious deformities. NEUROLOGICAL: Awake, alert and oriented x4. No focal neurologic deficits. Moving both upper and lower extremities spontaneously. Hospital Course Mr Patel is a 41-year-old male. He was hospitalized for sepsis and cellulitis. This is a recurrent problem for him at his bilateral lower extremities. With antibiotics he has improved through time. Fevers have now resolved. She did have nausea and vomiting, likely secondary to sepsis. This also has improved today. He tolerated dinner last night. No reports of nausea today. Medically stable for discharge to home with Levaquin for 10 days and probiotics. Stable for discharge today. Pt Condition on Discharge: Stable Discharge Disposition: Discharge Home Discharge Time: <= 30 minutes Discharge Instructions DIET: Follow Instructions for: As Tolerated, No Restrictions Activities you can perform: Regular-No Restrictions Follow up Referrals: PCP Follow-up - 1 Week New Medications: Lactobacillus Acidophilus (Lactobacillus Acidophilus) 1 Billion Cell Tab 1 TAB PO TIDAC for Nutritional Supplement, #30 TAB 0 Refills Levofloxacin (Levaquin) 750 Mg Tablet 750 MG PO DAILY for Infection, #10 TAB 0 Refills Continued Medications: Rivaroxaban (Xarelto) 20 Mg Tab 20 MG PO BID for Blood Clot Prevention, TAB 0 Refills Discontinued Medications: Sulfamethoxazole-Trimethoprim (Bactrim DS) 800-160 Mg Tab 1 TAB PO BID for Infection, #20 TAB 0 Refills Herbert Washington MD Feb 25, 2017 09:32
[2017-02-25] MEDS: RIVAROXABAN 20 MG TAB PO SCH (09:45)
[2017-02-25] MEDS: DOCUSATE SODIUM 50 MG/SENNA 8.6 MG TAB PO SCH (09:45)
[2017-02-25] MEDS: SODIUM CHLORIDE 0.9% FLUSH 10 ML FLUSH IV FLUSH SCH (09:45)
== END 2017-02-25 13:40 | disposition home or self-care (01) | DRG 872 ==
LOC: NEPC 22:02 → NEDA 02-22 03:32 → N07A 02-22 04:30
PROVIDERS: ADMIT Hospitalist; ATTEND Hospitalist
DX: A41.9 Sepsis, unspecified organism (principal); I95.9 Hypotension, unspecified; L03.115 Cellulitis of right lower limb; L03.116 Cellulitis of left lower limb; E66.01 Morbid (severe) obesity due to excess calories; I10 Essential (primary) hypertension; E86.0 Dehydration; F32.9 Major depressive disorder, single episode, unspecified; R11.2 Nausea with vomiting, unspecified; B95.5 Unspecified streptococcus as the cause of diseases classified elsewhere; R60.0 Localized edema; Z86.718 Personal history of other venous thrombosis and embolism; Z68.39 Body mass index [BMI] 39.0-39.9, adult
CPT/HCPCS: 71010; 71275; 74177; 80048; 80053; 80202; 81001; 82550; 82552; 83605; 83690; 83735; 84100; 84484; 85025; 85610; 85730; 87040; 87186; 87205; 87804; 93005; 94150; 96361; 96365; 96368; 96375; J0692; J0696; J1885; J2405; J2543; J2765; J3370; J7030; J7040; J7050; Q9967

== ENCOUNTER 2017-04-06 12:13 | Emergency (ER) | payer SELFPAY ==
[~2017-04-06] VITALS: Ht 182.9 cm; Wt 132.0 kg
[~2017-04-06 12:13] MED LIST changes: -BACT800T5 PO; +LACTTAB8 PO; +LEVA750T9 PO
[2017-04-06 12:22] VITALS: BP 142/66; PULSE 97; RESP 16; TEMP 97.7; O2SAT 97
[2017-04-06] MEDS ORDERED: CEPHALEXIN MONOHYDRATE 500 MG CAP PO ONE (13:00)
--- NOTE | 2017-04-06 13:06 | PD ---
HPI Chief Complaint: Edema Time Seen by Provider: 12:35 Travel History International Travel<30 days: No Contact w/Intl Traveler<30days: No Traveled to known affect area: No History of Present Illness HPI So 41-year-old man presents to the emergency department complaining of leg pain and swelling, both legs little worse in the left with some redness and warmth on the left. 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 He states he's been taking this regularly. He has a one-year supply to patient assistance. States he's been on his feet more. Uses compression stocking some but not as much recently. History Past Medical History Narrative Medical Lymphedema History of DVT on Xarelto Tetanus Vaccination: < 5 Years Social History Alcohol Use: No (pt denies) Tobacco Use: No (pt denies ) Allergies-Medications (Allergen,Severity, Reaction): Coded Allergies: strawberry (Verified Allergy, Severe, Anaphylaxis, 04/06/17) THROAT CLOSES /RASH Reported Meds & Prescriptions Reported Meds & Active Scripts Active Reported Xarelto (Rivaroxaban) 20 Mg Tab 20 Mg PO DAILY Review of Systems Except as stated in HPI: all other systems reviewed are Neg Physical Exam Narrative GENERAL: 41-year-old man, little bit disheveled, no acute distress. SKIN: Focused skin assessment warm/dry. NECK: Trachea midline. No JVD. CARDIOVASCULAR: Regular rate and rhythm. No murmur appreciated. RESPIRATORY: No accessory muscle use. Clear to auscultation. Breath sounds equal bilaterally. GASTROINTESTINAL: Abdomen soft, non-tender, nondistended. Hepatic and splenic margins not palpable. MUSCULOSKELETAL: No obvious deformities. Chronic edema bilateral lower extremities with extensive skin changes, with a little bit of erythema warmth on the left. There is no asymmetry in the size of the legs, there is a couple open wounds on the left anteriorly. Data Data Last Documented VS Vital Signs Date Time Temp Pulse Resp B/P (MAP) Pulse Ox O2 Delivery O2 Flow Rate FiO2 04/06/17 12:22 97.7 97 16 142/66 (91) 97 Orders Orders Cephalexin (Keflex) (04/06/17 13:00) Us Leg Venous Doppler Bilat (04/06/17 ) MDM Medical Decision Making Medical Screen Exam Complete: Yes Emergency Medical Condition: Yes Interpretation(s) DVT ultrasound: Limited but otherwise negative for DVT. Differential Diagnosis Lymphedema, DVT, cellulitis, ulcerations, other Narrative Course Medical decision making 41-year-old man with chronic lymphedema presents with worsening lymphedema with a little bit of erythema redness and infection in the left leg. No asymmetry in size. Patient is already anticoagulated with Xarelto which he states he is taking regularly and has a year's supply of. I think the symptoms are likely related to chronic lymphedema and infection. Previous ultrasound is been unremarkable. Patient has had bilateral PEs in the past. We'll repeat ultrasound. We'll recommend continue to Xarelto, will recommend compression of the lower extremities with wraps, antibiotics, outpatient follow-up. Patient did have a primary physician who retired, we'll refer. Diagnosis Primary Impression: Lymph edema Additional Impression: Cellulitis Additional Instructions: Take antibiotics as prescribed. Keep legs compressed when your up on your feet, keep them elevated as much as possible. Follow-up with [facility]. Med/Other Pt SpecificInfo: Prescription(s) given Scripts Cephalexin (Keflex) 500 Mg Capsule 500 MG PO TID for Infection for 7 Days, CAP 0 Refills Prov: Terry Lea MD 04/06/17 Disposition: 01 DISCHARGE HOME Condition: Stable Terry Lea MD Apr 06, 2017 13:06
[2017-04-06 13:10] VITALS: BP 111/66; PULSE 94; RESP 16; O2SAT 97
[2017-04-06 14:15] VITALS: BP 127/77; PULSE 90; RESP 16; O2SAT 98
--- NOTE | 2017-04-06 14:32 | RADRPT ---
EXAM DATE/TIME: 04/06/2017 13:36 [facility] COMPARISON: US LEG BILATERAL VENOUS DOPPLER, January 02, 2017, 18:54. INDICATIONS : Bilateral leg edema. MEDICAL HISTORY : Deep vein thrombosis. Kidney stones. Chronic cellulitis. SURGICAL HISTORY : Tonsillectomy. Kidney transplant. Back surgery. ENCOUNTER: Subsequent ACUITY: 1 year PAIN SCORE: 0/10 LOCATION: Bilateral legs. TECHNIQUE: Venous ultrasound of the left and right leg was performed from the inguinal ligament to the proximal calf. Real-time, color Doppler and spectral tracing, compression and augmentation techniques were us ed. FINDINGS: RIGHT LEG: Posterior tibial veins are not well demonstrated. There is normal compressibility of the deep venous system from the inguinal region to the proximal calf. No echogenic clot is seen in the lumen of the common femoral, femoral, and popliteal vein. Augmentation was not performed on the right. Multiple pr obable enlarged inguinal nodes with the largest measuring 2.9 x 6.7 x 2.9 cm. LEFT LEG: Posterior tibial veins are not well demonstrated. There is normal compressibility of the deep venous system from the inguinal region to the proximal calf. No echogenic clot is seen in the lumen of the common femoral, femoral, and popliteal vein. There is a normal response of the venous system to proxi mal and distal augmentation and respiration. Multiple enlarged probable inguinal nodes with the larg est measuring 4.5 x 4.9 x 1.5 cm. CONCLUSION: 1. Somewhat limited examination due to nonvisualization of the tibial veins bilaterally and inability to perform augmentation on the right. 2. Otherwise, no definite sonographic evidence for lower extremity DVT to the popliteal veins. 3. Bilateral inguinal adenopathy similar to prior exams.. Harley Artis MD on April 06, 2017 at 14:26 Board Certified Radiologist. This report was verified electronically.
[2017-04-06] MEDS ORDERED: CEPH-460 PO (14:38)
[2017-04-06 15:00] VITALS: BP 120/63; PULSE 90; RESP 16; O2SAT 99
== END 2017-04-06 15:40 | disposition home or self-care (01) ==
LOC: NEPE 12:13
DX: I89.0 Lymphedema, not elsewhere classified (principal); L03.116 Cellulitis of left lower limb; Z79.899 Other long term (current) drug therapy; Z86.718 Personal history of other venous thrombosis and embolism
CPT/HCPCS: 93970

== ENCOUNTER 2017-05-11 19:50 | Emergency (ER) | payer SELFPAY ==
[~2017-05-11] VITALS: Ht 182.9 cm; Wt 125.0 kg
[~2017-05-11 19:50] MED LIST changes: +CEPH-460 PO; -LACTTAB8 PO; -LEVA750T9 PO
[2017-05-11 19:51] VITALS: BP 138/79; PULSE 115; RESP 20; TEMP 98; O2SAT 99
[2017-05-11] MEDS ORDERED: XARE10TA PO (20:13)
[2017-05-11 20:14] VITALS: BP 125/77; PULSE 104; RESP 16; O2SAT 95
[2017-05-11] MEDS ORDERED: CLINDAMYCIN INJ 600 MG in SODIUM CHLORIDE 0.9% INJ 100 ML IV ONE (20:30)
[2017-05-11] MEDS ORDERED: KETOROLAC TROMETHAMINE 30 MG/ML (IVP) VIAL IV PUSH ONE (20:30)
--- NOTE | 2017-05-11 20:35 | PD ---
HPI Chief Complaint: Skin Problem Time Seen by Provider: 20:15 Travel History International Travel<30 days: No Contact w/Intl Traveler<30days: No Traveled to known affect area: No History of Present Illness HPI 42-year-old male that presents to the ED for evaluation of bilateral lower leg swelling and possible infection. Patient reports that he started getting bad since . Per patient progressively getting worse. Per patient he has no primary care doctor and he has not taken anything for it. He was seen here early April and was started on Keflex and per patient improved. Per patient now is coming back. He has a chronic history of lymphedema in the past. He also has a history of PEs and DVTs and states that he's been compliant with his around the. He states that the pain is mostly on the left leg but also has lesions to the right leg. Patient has multiple scattered lesions patient in the left like there are circular almost ulcerative like on the left leg. Left leg more tender than right. Per patient the pain is 8 out of 10. He denies any chest pain or shortness of breath. No obvious fevers with this and some chills and sweats. Denies any allergies to medication. PFSH Past Medical History Hx Anticoagulant Therapy: Yes (XARELTO) Arthritis: No Asthma: No Autoimmune Disease: No Anxiety: No Depression: Yes Heart Rhythm Problems: No Cancer: No Cardiovascular Problems: Yes (DVT) High Cholesterol: No Chemotherapy: No Chest Pain: No Congestive Heart Failure: No COPD: No Cerebrovascular Accident: No Diabetes: No Diminished Hearing: No Deep Vein Thrombosis: Yes (RIGHT LEG 09/2015) Endocrine: No GERD: No Genitourinary: Yes Headaches: No Hiatal Hernia: No Hypertension: No Immune Disorder: No Implanted Vascular Access Dvce: No Kidney Stones: Yes Musculoskeletal: No Neurologic: No Psychiatric: No Reproductive: No Respiratory: No Integumentary: Yes (CHRONIC CELLULITIS PHILLIP FEET) Immunizations Current: Yes Migraines: No Radiation Therapy: No Renal Failure: No Seizures: No Sleep Apnea: No Thyroid Disease: No Ulcer: No Past Surgical History Abdominal Surgery: No Cardiac Surgery: No Ear Surgery: No Endocrine Surgery: No Eye Surgery: No Genitourinary Surgery: Yes (KIDNEY STONE REMOVED) Gynecologic Surgery: No Neurologic Surgery: No Oral Surgery: No Thoracic Surgery: No Tonsillectomy: Yes Other Surgery: Yes (kidney stones removed and back surgery 1995) Social History Alcohol Use: No (pt denies) Tobacco Use: No (pt denies ) Substance Use: No Allergies-Medications (Allergen,Severity, Reaction): Coded Allergies: strawberry (Verified Allergy, Severe, Anaphylaxis, 05/11/17) THROAT CLOSES /RASH Reported Meds & Prescriptions Reported Meds & Active Scripts Active Diclofenac Sodium DR (Diclofenac Sodium) 75 Mg Tabdr 75 Mg PO BID PRN Bactrim DS (Sulfamethoxazole-Trimethoprim) 800-160 Mg Tab 1 Tab PO BID 14 Days Reported Xarelto (Rivaroxaban) 10 Mg Tab 10 Mg PO DAILY Review of Systems Except as stated in HPI: all other systems reviewed are Neg Physical Exam Narrative GENERAL: SKIN: Warm and dry. HEAD: Atraumatic. Normocephalic. EYES: Pupils equal and round. No scleral icterus. No injection or drainage. ENT: No nasal bleeding or discharge. Mucous membranes pink and moist. Tongue is midline. No uvula deviation. NECK: Trachea midline. No JVD. CARDIOVASCULAR: Regular rate and rhythm. No murmurs, S3, S4. RESPIRATORY: No accessory muscle use. Clear to auscultation. Breath sounds equal bilaterally. GASTROINTESTINAL: Abdomen soft, non-tender, nondistended. Hepatic and splenic margins not palpable. MUSCULOSKELETAL: Extremities without clubbing, cyanosis, or edema. No obvious deformities. Full range of motion of the upper and lower extremities bilaterally. Pupils pulses bilaterally. Patient does have bilateral lower leg swelling which appears to be chronic. Patient does have multiple lesions on the left lower leg about at least 6 of them more noticeable on the medial aspect of the tib-fib as well as the lateral aspect with some purulence coming out of some of them. Patient does have older lesions noted on the right leg but also some new ones are not is on the left. Patient does appear to have chronic deformity to both lower legs with swelling on the tib-fib. Some erythema noted but this appears to be more chronic skin changes. 2+ pulses bilaterally. NEUROLOGICAL: Awake and alert. No obvious cranial nerve deficits. Motor grossly within normal limits. Five out of 5 muscle strength in the arms and legs. Normal speech. PSYCHIATRIC: Appropriate mood and affect; insight and judgment normal. Data Data Last Documented VS Vital Signs Date Time Temp Pulse Resp B/P (MAP) Pulse Ox O2 Delivery O2 Flow Rate FiO2 05/11/17 20:14 104 16 125/77 (93) 95 Room Air 05/11/17 19:51 98.0 Orders Orders Basic Metabolic Panel (Bmp) (05/11/17 20:21) Complete Blood Count With Diff (05/11/17 20:21) Blood Culture (05/11/17 20:21) Wound Culture And Gram Stain (05/11/17 20:21) Iv Access Insert/Monitor (05/11/17 20:21) Wound Care (05/11/17 20:21) Clindamycin Inj (Cleocin Inj) (05/11/17 20:30) Lactic Acid Sepsis Protocol (05/11/17 20:21) Ketorolac Inj (Toradol Inj) (05/11/17 20:30) Coag Profile (05/11/17 20:24) Clindamycin 600 Mg/Ns Premix (Cleocin 60 (05/11/17 20:45) Labs Laboratory Tests Test 05/11/17 20:49 White Blood Count 9.2 TH/MM3 Red Blood Count 5.02 MIL/MM3 Hemoglobin 14.4 GM/DL Hematocrit 43.2 % Mean Corpuscular Volume 86.0 FL Mean Corpuscular Hemoglobin 28.7 PG Mean Corpuscular Hemoglobin Concent 33.3 % Red Cell Distribution Width 13.2 % Platelet Count 320 TH/MM3 Mean Platelet Volume 8.5 FL Neutrophils (%) (Auto) 79.9 % Lymphocytes (%) (Auto) 9.6 % Monocytes (%) (Auto) 8.7 % Eosinophils (%) (Auto) 1.2 % Basophils (%) (Auto) 0.6 % Neutrophils # (Auto) 7.3 TH/MM3 Lymphocytes # (Auto) 0.9 TH/MM3 Monocytes # (Auto) 0.8 TH/MM3 Eosinophils # (Auto) 0.1 TH/MM3 Basophils # (Auto) 0.1 TH/MM3 CBC Comment DIFF FINAL Differential Comment Prothrombin Time 10.2 SEC Prothromb Time International Ratio 1.0 RATIO Activated Partial Thromboplast Time 25.0 SEC Blood Urea Nitrogen 11 MG/DL Creatinine 1.04 MG/DL Random Glucose 115 MG/DL Calcium Level 8.9 MG/DL Sodium Level 138 MEQ/L Potassium Level 3.9 MEQ/L Chloride Level 102 MEQ/L Carbon Dioxide Level 30.7 MEQ/L Anion Gap 5 MEQ/L Estimat Glomerular Filtration Rate 78 ML/MIN Lactic Acid Level 1.1 mmol/L MDM Medical Decision Making Medical Screen Exam Complete: Yes Emergency Medical Condition: Yes Medical Record Reviewed: Yes Interpretation(s) CBC & BMP Diagram 05/11/17 20:49 Calcium Level 8.9 lactic acid WNL Differential Diagnosis Cellulitis versus bilateral lymphedema versus impetigo Narrative Course 42-year-old male that presents to the ED for evaluation of possible infection to his legs. Patient was properly examined and was found to have signs and symptoms which appear to be consistent with infected skin lesions and possible cellulitis. Labs were ordered. Patient was started on IV clindamycin. Labs showed no sign of acute disease. For the most part reassuring. I discussed the case with my attending Dr. agrees the patient can try outpatient treatment. Patient does need follow-up for this. He will need wound care as well outpatient. Patient was given a prescription for Bactrim and diclofenac sodium as he does appear to not have insurance and clindamycin might to expensive for him. Bactrim will cover for MRSA as well as was staff. He was given a prescription for diclofenac sodium. He was told to do wound care. Close follow with PCP. See ED worsening symptoms. Diagnosis Primary Impression: Cellulitis Qualified Codes: L03.116 - Cellulitis of left lower limb Patient Instructions: General Instructions Additional Instructions: Take medications as prescribed. Follow with PCP. See ED worsening symptoms. Wound care every day. Med/Other Pt SpecificInfo: Prescription(s) given, Wound Care Scripts Diclofenac Sodium DR (Diclofenac Sodium DR) 75 Mg Tabdr 75 MG PO BID Y for PAIN SCALE 1 TO 10, #20 TAB 0 Refills Prov: Arely Valles MD 05/11/17 Sulfamethoxazole-Trimethoprim (Bactrim DS) 800-160 Mg Tab 1 TAB PO BID for Infection for 14 Days, #28 TAB 0 Refills Prov: Arely Valles MD 05/11/17 Disposition: 01 DISCHARGE HOME Condition: Stable Nathanael Barnes May 11, 2017 20:35
[2017-05-11] MEDS ORDERED: CLINDAMYCIN 600 MG/NS PREMIX 50 ML IV ONE (20:45)
[2017-05-11 21:12] LABS: AUTOMATED NEUTROPHIL # 7.3 TH/MM3 (1.8-7.7); BASOPHIL # 0.1 TH/MM3 (0-0.2); BASOPHIL % 0.6 % (0.0-2.0); EOSINOPHIL # 0.1 TH/MM3 (0-0.4); EOSINOPHIL % 1.2 % (0.0-4.0); HEMATOCRIT 43.2 % (39.0-51.0); HEMOGLOBIN 14.4 GM/DL (13.0-17.0); LYMPH % 9.6 % (9.0-44.0); LYMPHOCYTE # 0.9 TH/MM3 (1.0-4.8); MEAN CORPUSCULAR HEMOGLOBIN 28.7 PG (27.0-34.0); MEAN CORPUSCULAR HGB CONC 33.3 % (32.0-36.0); MEAN PLATELET VOLUME 8.5 FL (7.0-11.0); MONO % 8.7 % (0.0-8.0); MONOCYTE # 0.8 TH/MM3 (0-0.9); NEUT % 79.9 % (16.0-70.0); PLATELET COUNT 320 TH/MM3 (150-450); RED BLOOD COUNT 5.02 MIL/MM3 (4.50-5.90); RED CELL DISTRIBUTION WIDTH 13.2 % (11.6-17.2); WHITE BLOOD COUNT 9.2 TH/MM3 (4.0-11.0)
[2017-05-11 21:27] LABS: PROTHROMBIN TIME - PATIENT 10.2 SEC (9.8-11.6)
[2017-05-11 21:34] LABS: BICARBONATE 30.7 MEQ/L (21.0-32.0); CALCIUM 8.9 MG/DL (8.5-10.1); CREATININE 1.04 MG/DL (0.60-1.30)
[2017-05-11] MEDS ORDERED: BACT800T5 PO (21:42)
[2017-05-11] MEDS ORDERED: DICL75TA PO (21:42)
== END 2017-05-11 22:50 | disposition home or self-care (01) ==
LOC: NEPC 19:50
DX: L03.116 Cellulitis of left lower limb (principal); A49.01 Methicillin susceptible Staphylococcus aureus infection, unspecified site; F32.9 Major depressive disorder, single episode, unspecified; Z87.442 Personal history of urinary calculi; Z86.711 Personal history of pulmonary embolism; Z86.718 Personal history of other venous thrombosis and embolism
CPT/HCPCS: 80048; 83605; 85025; 85610; 85730; 86403; 87040; 87070; 87186; 96365; 96375; 99284; J1885; 87205

== ENCOUNTER 2017-06-01 22:23 | Inpatient (IN) | payer SELFPAY ==
[~2017-06-01] VITALS: Ht 182.9 cm; Wt 182.9 kg
[~2017-06-01 22:23] MED LIST changes: +BACT800T5 PO; -CEPH-460 PO; +DICL75TA PO; +XARE10TA PO; -XARE20TA PO
[2017-06-01 22:37] VITALS: BP 144/83; PULSE 129; RESP 14; TEMP 102.6; O2SAT 94
[2017-06-01 23:35] VITALS: BP 148/90; PULSE 128; RESP 20; TEMP 103; O2SAT 97
[2017-06-01 23:37] VITALS: BP 148/90; PULSE 128; RESP 20; TEMP 103; O2SAT 97
[2017-06-02] VITALS (8 sets, daily range): BP systolic 111–130; BP diastolic 68–80; PULSE 87–125; RESP 18–20; TEMP 95.6–102.5; O2SAT 95–97
[2017-06-02] MEDS ORDERED: VANCOMYCIN INJ 1,500 MG in SODIUM CHLORID 0.9% 500 ML INJ 500 ML IV ONE ×2
[2017-06-02] MEDS ORDERED: ACETAMINOPHEN 500 MG CPLT PO ONE
[2017-06-02] MEDS ORDERED: ONDANSETRON HCL 4 MG/2 ML VIAL IV PUSH ONE
[2017-06-02] MEDS ORDERED: PIPERACIL-TAZO 4.5 GM PREMIX 100 ML IV ONE
[2017-06-02 00:18] LABS: CHLORIDE 101 MEQ/L (98-107); SODIUM (NA) 137 MEQ/L (136-145)
[2017-06-02 00:21] LABS: CALCIUM 9.5 MG/DL (8.5-10.1)
[2017-06-02 00:22] LABS: ALBUMIN 3.6 GM/DL (3.4-5.0); AUTOMATED NEUTROPHIL # 12.7 TH/MM3 (1.8-7.7); BASOPHIL # 0.5 TH/MM3 (0-0.2); BASOPHIL % 3.2 % (0.0-2.0); BICARBONATE 30.2 MEQ/L (21.0-32.0); BLOOD UREA NITROGEN 13 MG/DL (7-18); EOSINOPHIL # 0.1 TH/MM3 (0-0.4); GLUCOSE,RANDOM 131 MG/DL (74-106); HEMATOCRIT 47.7 % (39.0-51.0); HEMOGLOBIN 15.4 GM/DL (13.0-17.0); LYMPH % 3.6 % (9.0-44.0); LYMPHOCYTE # 0.5 TH/MM3 (1.0-4.8); MAGNESIUM 1.7 MG/DL (1.5-2.5); MEAN CELL VOLUME 85.4 FL (80.0-100.0); MEAN CORPUSCULAR HEMOGLOBIN 27.6 PG (27.0-34.0); MEAN CORPUSCULAR HGB CONC 32.4 % (32.0-36.0); MEAN PLATELET VOLUME 8.6 FL (7.0-11.0); MONO % 5.2 % (0.0-8.0); MONOCYTE # 0.8 TH/MM3 (0-0.9); PLATELET COUNT 331 TH/MM3 (150-450); RED BLOOD COUNT 5.58 MIL/MM3 (4.50-5.90); RED CELL DISTRIBUTION WIDTH 12.7 % (11.6-17.2); WHITE BLOOD COUNT 14.6 TH/MM3 (4.0-11.0)
[2017-06-02 00:24] LABS: PROTHROMBIN TIME - PATIENT 9.8 SEC (9.8-11.6)
[2017-06-02 00:25] LABS: ALT (GPT) 20 U/L (12-78); AST (GOT) 13 U/L (15-37); GLOMERULAR FILTRATION RATE 66 ML/MIN (>89)
[2017-06-02 00:27] LABS: TOTAL BILIRUBIN ADULT 0.3 MG/DL (0.2-1.0); TOTAL PROTEIN 10.3 GM/DL (6.4-8.2)
[2017-06-02 00:28] LABS: ALKALINE PHOSPHATASE 79 U/L (45-117)
[2017-06-02 00:30] LABS: TROPONIN I LESS THAN 0.02 NG/ML (0.02-0.05)
[2017-06-02 00:43] LABS: BILIRUBIN, URINE NEG (NEG); BLOOD, URINE NEG (NEG); GLUCOSE,URINE NEG (NEG); KETONE, URINE NEG (NEG); NITRITE,URINE NEG (NEG); PH, URINE 6.5 (5.0-8.5); URINE LEUKOCYTE ESTERASE NEG (NEG)
[2017-06-02] MEDS ORDERED: SODIUM CHLOR 0.9% 1000 ML INJ 1,000 ML IV ONE ×2 (00:45)
--- NOTE | 2017-06-02 00:48 | RADRPT ---
EXAM DATE/TIME: 06/02/2017 00:06 [facility] COMPARISON: CHEST SINGLE AP, February 21, 2017, 22:26. INDICATIONS : Shortness of breath, fever and nausea/vomiting since this morning. MEDICAL HISTORY : None. SURGICAL HISTORY : None. ENCOUNTER: Initial ACUITY: 1 day PAIN SCORE: 0/10 LOCATION: Bilateral chest FINDINGS: A single view of the chest demonstrates cardiomegaly. Mild basilar atelectasis. No effusion or pneumo thorax. CONCLUSION: 1. No acute findings. Minimal basilar atelectasis. Sage Kwon MD on June 02, 2017 at 0:44 Board Certified Radiologist. This report was verified electronically.
[2017-06-02 00:51] LABS: URINE COLOR YELLOW (YELLW/STRAW)
[2017-06-02 00:52] LABS: MUCUS URINE OCC /lpf (OCC); SQUAMOUS EPITHELIAL CELL URINE 0-5 /hpf (0-5)
--- NOTE | 2017-06-02 01:16 | PD ---
HPI Chief Complaint: Fever Time Seen by Provider: 23:47 Travel History International Travel<30 days: No Contact w/Intl Traveler<30days: No Traveled to known affect area: No History of Present Illness HPI 42-year-old male presents to the emergency department by private transportation in the care of his mother for evaluation of fever chills nausea vomiting and lower extremity redness and swelling. Patient has chronic lower extremity lymphedema with recurrent cellulitis. Patient states this morning he started to have chills and feeling as if he may be having recurrent cellulitis. Patient is not notice any new drainage from his excoriated sides but states that the redness and warmth to the legs is new and consistent with previous episodes of cellulitis. Patient's had no cough no congestion no sore throat no earache no shortness of breath no chest pain no flulike symptoms with myalgias and arthralgias. Patient denies any abdominal pain. Patient's had no dietary indiscretion well water ingestion or foreign travel. Patient's had no bilious emesis coffee-ground emesis hematemesis melena or hematochezia. Patient states he has vomited a few times stomach contents consistent with recently consumed foods. Mother has been asymptomatic and no GI symptoms. Patient denies diabetes. Patient states he did take acetaminophen earlier in the day but noted recurrent fever so decided to come to the emergency room at this time. Patient denies dysuria frequency urgency flank pain or hematuria. PFSH Past Medical History Narrative Medical DVT, recurrent cellulitis, lower extremity lymphedema; kidney stones tonsillectomy; nursing notes reviewed Hx Anticoagulant Therapy: Yes (XARELTO) Arthritis: No Asthma: No Autoimmune Disease: No Anxiety: No Depression: Yes Heart Rhythm Problems: No Cancer: No Cardiovascular Problems: Yes (DVT) High Cholesterol: No Chemotherapy: No Chest Pain: No Congestive Heart Failure: No COPD: No Cerebrovascular Accident: No Diabetes: No Diminished Hearing: No Deep Vein Thrombosis: Yes (RIGHT LEG 09/2015) Endocrine: No GERD: No Genitourinary: Yes Headaches: No Hiatal Hernia: No Hypertension: No Immune Disorder: No Implanted Vascular Access Dvce: No Kidney Stones: Yes Musculoskeletal: No Neurologic: No Psychiatric: No Reproductive: No Respiratory: No Integumentary: Yes (CHRONIC CELLULITIS PHILLIP FEET) Immunizations Current: Yes Migraines: No Radiation Therapy: No Renal Failure: No Seizures: No Sleep Apnea: No Thyroid Disease: No Ulcer: No Tetanus Vaccination: < 5 Years Past Surgical History Genitourinary Surgery: Yes (KIDNEY STONE REMOVED) Tonsillectomy: Yes Other Surgery: Yes (kidney stones removed and back surgery 1995) Social History Alcohol Use: No (pt denies) Tobacco Use: No (pt denies ) Substance Use: No Allergies-Medications (Allergen,Severity, Reaction): Coded Allergies: strawberry (Verified Allergy, Severe, Anaphylaxis, 05/11/17) THROAT CLOSES /RASH Reported Meds & Prescriptions Reported Meds & Active Scripts Active Reported Xarelto (Rivaroxaban) 10 Mg Tab 10 Mg PO DAILY Review of Systems Except as stated in HPI: all other systems reviewed are Neg General / Constitutional: Positive: Fever, Chills HENT: Positive: Congestion Cardiovascular: No: Chest Pain or Discomfort Respiratory: No: Shortness of Breath Gastrointestinal: Positive: Nausea, Vomiting, Diarrhea, No: Abdominal Pain Genitourinary: No: Dysuria, Flank Pain Musculoskeletal: Positive: Edema (bilateral lower extremities chronic), Pain ( warmth redness), No: Myalgias, Arthralgias Skin: Positive Rash ( bilateral lower extremities) Neurologic: No: Weakness ( bilateral lower extremities) Psychiatric: No: Anxiety Hematologic/Lymphatic: No: Lymph Node Enlargement Physical Exam Narrative GENERAL: Well-developed well-nourished mildly obese male in no acute respiratory distress with fever and tachycardia noted in triage SKIN: Warm and dry. HEAD: Normocephalic. EYES: No scleral icterus. No injection or drainage. NECK: Supple, trachea midline. No JVD or lymphadenopathy. CARDIOVASCULAR: Increased Regular rate and rhythm without murmurs, gallops, or rubs. RESPIRATORY: Breath sounds equal bilaterally. No accessory muscle use. GASTROINTESTINAL: Abdomen soft, non-tender, nondistended. MUSCULOSKELETAL: No cyanosis, bilateral lower extremity edema with lower leg erythema increased warmth and various staged excoriated abrasions. BACK: Nontender without obvious deformity. No CVA tenderness. Data Data Last Documented VS Vital Signs Date Time Temp Pulse Resp B/P (MAP) Pulse Ox O2 Delivery O2 Flow Rate FiO2 06/02/17 00:30 102.5 125 20 120/80 (93) 95 Room Air Orders Orders Sepsis Workup Initiated (06/01/17 ) Electrocardiogram (06/01/17 23:47) Complete Blood Count With Diff (06/01/17 23:47) Comprehensive Metabolic Panel (06/01/17 23:47) Prothrombin Time / Inr (Pt) (06/01/17 23:47) Act Partial Throm Time (Ptt) (06/01/17 23:47) Lactic Acid Sepsis Protocol (06/01/17 23:47) Magnesium (Mg) (06/01/17 23:47) Lipase (06/01/17 23:47) Troponin I (06/01/17 23:47) Urinalysis - C+S If Indicated (06/01/17 23:47) Influenzae A/B Antigen (06/01/17 23:47) Blood Culture (06/01/17 23:47) Wound Culture And Gram Stain (06/01/17 23:47) Chest, Single Ap (06/01/17 23:47) Blood Glucose (06/01/17 23:47) Ecg Monitoring (06/01/17 23:47) Iv Access Insert/Monitor (06/01/17 23:47) Oximetry (06/01/17 23:47) Oxygen Administration (06/01/17 23:47) Ondansetron Inj (Zofran Inj) (06/02/17 00:00) Piperacil-Tazo 4.5 Gm Premix (Zosyn 4.5 (06/02/17 00:00) Vancomycin Inj (Vancomycin Inj) (06/02/17 00:00) Acetaminophen (Tylenol) (06/02/17 00:00) Sodium Chlor 0.9% 1000 Ml Inj (Ns 1000 M (06/02/17 00:45) Sodium Chlor 0.9% 1000 Ml Inj (Ns 1000 M (06/02/17 00:45) Admit Order (Ed Use Only) (06/02/17 ) Counter Top Assembler / Telemetry NICK.Q8H (06/02/17 01:32) Activity Oob With Assistance (06/02/17 01:32) Notify Dr: Other (06/02/17 01:32) Vancomycin Consult Pharmacy (Vancomycin (06/02/17 01:45) Cefepime Inj (Maxipime Inj) (06/02/17 09:00) Admit To Inpatient (06/02/17 ) Vital Signs (Adult) Q4H (06/02/17 01:32) Activity Oob Ad Sabrina (06/02/17 01:32) Counter Top Assembler / Telemetry .CONTINUOUS (06/02/17 01:32) Intake + Output NICK.QSHIFT (06/02/17 01:32) Diet Regular Basic (06/02/17 Breakfast) Sodium Chlor 0.9% 1000 Ml Inj (Ns 1000 M (06/02/17 01:32) Sodium Chloride 0.9% Flush (Ns Flush) (06/02/17 01:45) Sodium Chloride 0.9% Flush (Ns Flush) (06/02/17 09:00) Ondansetron Inj (Zofran Inj) (06/02/17 01:45) Comprehensive Metabolic Panel (06/03/17 06:00) Complete Blood Count With Diff (06/03/17 06:00) Acetaminophen (Tylenol) (06/02/17 01:45) Acetamin-Hydrocod 325-5 Mg (Chandler 5-325 (06/02/17 01:45) Morphine Inj (Morphine Inj) (06/02/17 01:45) Docusate Sodium-Senna (Yarelis-Colace) (06/02/17 09:00) Magnesium Hydroxide Liq (Milk Of Magnesi (06/02/17 01:45) Sennosides (Senokot) (06/02/17 01:45) Bisacodyl Supp (Dulcolax Supp) (06/02/17 01:45) Lactulose Liq (Lactulose Liq) (06/02/17 01:45) Inpatient Certification (06/02/17 ) Rivaroxaban (Xarelto) (06/02/17 09:00) Labs Laboratory Tests Test 06/01/17 23:50 06/02/17 00:15 White Blood Count 14.6 TH/MM3 Red Blood Count 5.58 MIL/MM3 Hemoglobin 15.4 GM/DL Hematocrit 47.7 % Mean Corpuscular Volume 85.4 FL Mean Corpuscular Hemoglobin 27.6 PG Mean Corpuscular Hemoglobin Concent 32.4 % Red Cell Distribution Width 12.7 % Platelet Count 331 TH/MM3 Mean Platelet Volume 8.6 FL Neutrophils (%) (Auto) 87.0 % Lymphocytes (%) (Auto) 3.6 % Monocytes (%) (Auto) 5.2 % Eosinophils (%) (Auto) 1.0 % Basophils (%) (Auto) 3.2 % Neutrophils # (Auto) 12.7 TH/MM3 Lymphocytes # (Auto) 0.5 TH/MM3 Monocytes # (Auto) 0.8 TH/MM3 Eosinophils # (Auto) 0.1 TH/MM3 Basophils # (Auto) 0.5 TH/MM3 CBC Comment AUTO DIFF Differential Comment AUTO DIFF CONFIRMED Platelet Estimate NORMAL Platelet Morphology Comment NORMAL Red Cell Morphology Comment NORMAL Prothrombin Time 9.8 SEC Prothromb Time International Ratio 1.0 RATIO Activated Partial Thromboplast Time 23.9 SEC Blood Urea Nitrogen 13 MG/DL Creatinine 1.20 MG/DL Random Glucose 131 MG/DL Total Protein 10.3 GM/DL Albumin 3.6 GM/DL Calcium Level 9.5 MG/DL Magnesium Level 1.7 MG/DL Alkaline Phosphatase 79 U/L Aspartate Amino Transf (AST/SGOT) 13 U/L Alanine Aminotransferase (ALT/SGPT) 20 U/L Total Bilirubin 0.3 MG/DL Sodium Level 137 MEQ/L Potassium Level 4.1 MEQ/L Chloride Level 101 MEQ/L Carbon Dioxide Level 30.2 MEQ/L Anion Gap 6 MEQ/L Estimat Glomerular Filtration Rate 66 ML/MIN Lactic Acid Level 1.4 mmol/L Troponin I LESS THAN 0.02 NG/ML Lipase 134 U/L Urine Color YELLOW Urine Turbidity CLEAR Urine pH 6.5 Urine Specific [place] 1.017 Urine Protein NEG mg/dL Urine Glucose (UA) NEG mg/dL Urine Ketones NEG mg/dL Urine Occult Blood NEG Urine Nitrite NEG Urine Bilirubin NEG Urine Leukocyte Esterase NEG Urine Squamous Epithelial Cells 0-5 /hpf Urine Mucus OCC /lpf Microscopic Urinalysis Comment CULT NOT INDICATED MDM Medical Decision Making Medical Screen Exam Complete: Yes Emergency Medical Condition: Yes Medical Record Reviewed: Yes Interpretation(s) Last Impressions Chest X-Ray 06/01/17 0129 Signed Impressions: Service Date/Time: Friday, June 02, 2017 00:06 - CONCLUSION: 1. No acute findings. Minimal basilar atelectasis. Sage Kwon MD CBC & BMP Diagram 06/01/17 23:50 Total Protein 10.3 H, Albumin 3.6, Calcium Level 9.5, Magnesium Level 1.7, Alkaline Phosphatase 79, Aspartate Amino Transf (AST/SGOT) 13 L, Alanine Aminotransferase (ALT/SGPT) 20, Total Bilirubin 0.3 Vital Signs Date Time Temp Pulse Resp B/P (MAP) Pulse Ox O2 Delivery O2 Flow Rate FiO2 06/02/17 00:13 97 Room Air 06/02/17 00:13 97 Room Air 06/01/17 23:37 97 Room Air 06/01/17 23:37 103.0 128 20 148/90 (109) 97 Room Air 06/01/17 23:35 103.0 128 20 148/90 (109) 97 06/01/17 22:37 102.6 129 14 144/83 (103) 94 Differential Diagnosis Cellulitis impetiginous rash viral syndrome influenza sepsis Narrative Course IV access obtained specimens collected and sent for resulting patient given IV fluid bolus vancomycin dose and acetaminophen Patient resting comfortably with good response to fluids and antipyretics CBC is automated differential leukocytosis with left shift however lactic acid is 1.4, not elevated Chemistries are grossly within normal range Urinalysis eyes are within normal limits next line chest x-ray no lobar infiltrate Patient meets SIRS/sepsis criteria will admit with cellulitis for ongoing IV antibiotic patient's case discussed with on-call [facility] Physician Communication Physician Communication call placed to [facility] service Diagnosis Primary Impression: Cellulitis Additional Impressions: Sepsis due to cellulitis Lymphedema of both lower extremities Admitting Information Admitting Physician Requests: Admit Arely Valles MD Jun 02, 2017 01:16
[2017-06-02] MEDS ORDERED: ACETAMINOPHEN 325 MG TAB PO PRN (01:45)
[2017-06-02] MEDS ORDERED: SODIUM CHLORIDE 0.9% FLUSH 10 ML FLUSH IV FLUSH PRN (01:45)
[2017-06-02] MEDS ORDERED: MAGNESIUM HYDROXIDE SUSP 30 ML CUP PO PRN (01:45)
[2017-06-02] MEDS ORDERED: BISACODYL 10 MG SUPP RECTAL PRN (01:45)
[2017-06-02] MEDS ORDERED: LACTULOSE SYRUP 20 GM/30 ML CUP PO PRN (01:45)
[2017-06-02] MEDS ORDERED: MORPHINE SULFATE 2 MG/ML INJ IV PUSH PRN (01:45)
[2017-06-02] MEDS ORDERED: ONDANSETRON HCL 4 MG/2 ML VIAL IVP PRN (01:45)
[2017-06-02] MEDS ORDERED: SENNOSIDES 8.6 MG TAB PO PRN (01:45)
[2017-06-02] MEDS ORDERED: Vancomycin Consult Pharmacy 1 EA OTHER SCH (01:45)
[2017-06-02] MEDS ORDERED: VANCOMYCIN 1 GM/200 ML PREMIX IV ONE (03:00)
[2017-06-02] MEDS: SODIUM CHLOR 0.9% 1000 ML INJ 1,000 ML IV SCH ×2 (04:45→11:43)
[2017-06-02] MEDS: DOCUSATE SODIUM 50 MG/SENNA 8.6 MG TAB PO SCH ×2 (08:57→20:27)
[2017-06-02] MEDS: RIVAROXABAN 10 MG TAB PO SCH (08:57)
[2017-06-02] MEDS: CEFEPIME INJ 1,000 MG in SODIUM CHLORIDE 0.9% INJ 100 ML IV SCH ×2 (08:58→20:26)
[2017-06-02] MEDS: SODIUM CHLORIDE 0.9% FLUSH 10 ML FLUSH IV FLUSH SCH ×2 (08:58→20:27)
[2017-06-02] MEDS ORDERED: HEPARIN SODIUM - SQ 10,000 UNITS/ML VIAL SQ SCH (09:00)
--- NOTE | 2017-06-02 10:27 | HHI.HP ---
HPI Service [facility] Hospitalists Primary Care Physician No Primary Care Physician Admission Diagnosis BLE cellulitis; sepsis Diagnoses: (1) Sepsis due to cellulitis (2) Lymphedema of both lower extremities (3) Leukocytosis Chief Complaint: Febrile episode and Travel History International Travel<30 Days: No Contact w/Intl Traveler <30 Da: No Traveled to Known Affected Are: No Sepsis Criteria SIRS Criteria (2 or more): Temp > 100.9 or < 96.8, Heart rate over 90, WBC > 35449, < 4000 or > 10% bands Sepsis Criteria (SIRS+source): Infect source susp/known Criteria Outcome: Meets sepsis criteria History of Present Illness 42-year-old male with a PMH of HTN, Depression, h/o DVT and Chronic LE Cellulitis who presented to the ER w/ complaints of fever, diarrheal episodes x several hours duration along with nausea and intractable vomiting patient has a known history of chronic bilateral lower extremity cellulitis, and was recently discharged from [facility] in May 2017 on a seven-day course of by mouth Levaquin which patient completed. However per patient, he hasn't noticed significant improvement and continue to have wounds to his left lower extremity more so than the right. He denies any chest pain or shortness of breath. During my exam, patient reported improvement of diarrheal episode since admission however continue to have nausea without any emesis. On Admission, patient was febrile with Tmax of 102.6, HR 129, BP 144/83 and 94%RA. Abnormal labs include 14.6. CXR with minimal atelectasis Review of Systems Except as stated in HPI: all other systems reviewed are Neg Past Family Social History Past Medical History HTN, Depression, h/o DVT and Chronic LE Cellulitis Past Surgical History Lithotripsy, Tonsillectomy Reported Medications Xarelto (Rivaroxaban) 10 Mg Tab 10 Mg PO DAILY Allergies: Coded Allergies: strawberry (Verified Allergy, Severe, Anaphylaxis, 05/11/17) THROAT CLOSES /RASH Family History Mother DM Father DM and Parkinson's Social History Denies EtOH, tobacco or illicit drug use. Physical Exam Vital Signs Vital Signs Date Time Temp Pulse Resp B/P (MAP) Pulse Ox O2 Delivery O2 Flow Rate FiO2 06/02/17 08:00 98.7 100 18 117/72 (87) 97 06/02/17 03:30 118 06/02/17 02:01 06/02/17 01:51 101.2 123 20 125/75 (92) 97 Room Air 06/02/17 00:30 102.5 125 20 120/80 (93) 95 Room Air 06/02/17 00:13 97 Room Air 06/02/17 00:13 97 Room Air 06/01/17 23:37 97 Room Air 06/01/17 23:37 103.0 128 20 148/90 (109) 97 Room Air 06/01/17 23:35 103.0 128 20 148/90 (109) 97 06/01/17 22:37 102.6 129 14 144/83 (103) 94 Physical Exam GENERAL: This is a well-nourished, well-developed patient, in no apparent distress. SKIN: No rashes, ecchymoses or lesions. Cool and dry. HEAD: Atraumatic. Normocephalic. No temporal or scalp tenderness. EYES: Pupils equal round and reactive. Extraocular motions intact. No scleral icterus. No injection or drainage. ENT: Nose without bleeding, purulent drainage or septal hematoma. Throat without erythema, tonsillar hypertrophy or exudate. Uvula midline. Airway patent. NECK: Trachea midline. No JVD or lymphadenopathy. Supple, nontender, no meningeal signs. CARDIOVASCULAR: Regular rate and rhythm without murmurs, gallops, or rubs. RESPIRATORY: Clear to auscultation. Breath sounds equal bilaterally. No wheezes , rales, or rhonchi. GASTROINTESTINAL: Abdomen soft, non-tender, nondistended. No hepato-splenomegaly , or palpable masses. No guarding. MUSCULOSKELETAL: Extremities without clubbing, cyanosis. has amee pedal edema, RLE larger compared to the LLE. Has chronic brownish skin changes in both legs. Has patches of erythema in his L leg. LLE>RLE in size NEUROLOGICAL: Awake and alert. Cranial nerves II through XII intact. Motor and sensory grossly within normal limits. Five out of 5 muscle strength in all muscle groups. Normal speech. Laboratory Laboratory Tests Test 06/01/17 23:50 06/02/17 00:15 White Blood Count 14.6 Red Blood Count 5.58 Hemoglobin 15.4 Hematocrit 47.7 Mean Corpuscular Volume 85.4 Mean Corpuscular Hemoglobin 27.6 Mean Corpuscular Hemoglobin Concent 32.4 Red Cell Distribution Width 12.7 Platelet Count 331 Mean Platelet Volume 8.6 Neutrophils (%) (Auto) 87.0 Lymphocytes (%) (Auto) 3.6 Monocytes (%) (Auto) 5.2 Eosinophils (%) (Auto) 1.0 Basophils (%) (Auto) 3.2 Neutrophils # (Auto) 12.7 Lymphocytes # (Auto) 0.5 Monocytes # (Auto) 0.8 Eosinophils # (Auto) 0.1 Basophils # (Auto) 0.5 CBC Comment AUTO DIFF Differential Comment AUTO DIFF CONFIRMED Platelet Estimate NORMAL Platelet Morphology Comment NORMAL Red Cell Morphology Comment NORMAL Prothrombin Time 9.8 Prothromb Time International Ratio 1.0 Activated Partial Thromboplast Time 23.9 Blood Urea Nitrogen 13 Creatinine 1.20 Random Glucose 131 Total Protein 10.3 Albumin 3.6 Calcium Level 9.5 Magnesium Level 1.7 Alkaline Phosphatase 79 Aspartate Amino Transf (AST/SGOT) 13 Alanine Aminotransferase (ALT/SGPT) 20 Total Bilirubin 0.3 Sodium Level 137 Potassium Level 4.1 Chloride Level 101 Carbon Dioxide Level 30.2 Anion Gap 6 Estimat Glomerular Filtration Rate 66 Lactic Acid Level 1.4 Troponin I LESS THAN 0.02 Lipase 134 Urine Color YELLOW Urine Turbidity CLEAR Urine pH 6.5 Urine Specific [place] 1.017 Urine Protein NEG Urine Glucose (UA) NEG Urine Ketones NEG Urine Occult Blood NEG Urine Nitrite NEG Urine Bilirubin NEG Urine Leukocyte Esterase NEG Urine Squamous Epithelial Cells 0-5 Urine Mucus OCC Microscopic Urinalysis Comment CULT NOT INDICATED Date/Time Source Procedure Growth Status 06/01/17 23:50 Blood Peripheral Aerobic Blood Culture Pending Received 06/01/17 23:50 Blood Peripheral Anaerobic Blood Culture Pending Received 06/02/17 00:15 Nasal Washing Influenza Types A,B Antigen (NAKUL) - Final NEGATIVE FOR FLU A AND B ANTIGEN.... Complete 06/02/17 00:15 Wound Leg Gram Stain - Final Resulted 06/02/17 00:15 Wound Leg Wound Culture Pending Resulted Result Diagram: 06/01/17 23506/01/17 235 Imaging Last Impressions Chest X-Ray 06/01/17 0867 Signed Impressions: Service Date/Time: Friday, June 02, 2017 00:06 - CONCLUSION: 1. No acute findings. Minimal basilar atelectasis. Sage Kwon MD Septic Shock Reassessment Septic shock perfusion: reassessment completed Caprini VTE Risk Assessment Caprini VTE Risk Assessment: Mod/High Risk (score >= 2) Caprini Risk Assessment Model Point Value = 1 Point Value = 2 Point Value = 3 Point Value = 5 Age 41-60 Minor surgery BMI > 25 kg/m2 Swollen legs Varicose veins or History of unexplained or recurrent spontaneous Oral contraceptives or hormone replacement Sepsis (< 1 month) Serious lung disease, including pneumonia (< 1 month) Abnormal pulmonary function Acute myocardial infarction Congestive heart failure (< 1 month) History of inflammatory bowel disease Medical patient at bed rest Age 61-74 Arthroscopic surgery Major open surgery (> 45 min) Laparoscopic surgery (> 45 min) Malignancy Confined to bed (> 72 hours) Immobilizing plaster cast Central venous access Age >= 75 History of VTE Family history of VTE Factor V Leiden Prothrombin 26006A Lupus anticoagulant Anticardiolipin antibodies Elevated serum homocysteine Heparin-induced thrombocytopenia Other congenital or acquired thrombophilia Stroke (< 1 month) Elective arthroplasty Hip, pelvis, or leg fracture Acute spinal cord injury (< 1 month) Prophylaxis Regimen Total Risk Factor Score Risk Level Prophylaxis Regimen 0-1 Low Early ambulation 2 Moderate Order ONE of the following: *Sequential Compression Device (SCD) *Heparin 5000 units SQ BID 3-4 Higher Order ONE of the following medications: *Heparin 5000 units SQ TID *Enoxaparin/Lovenox 40 mg SQ daily (WT < 150 kg, CrCl > 30 mL/min) *Enoxaparin/Lovenox 30 mg SQ daily (WT < 150 kg, CrCl > 10-29 mL/min) *Enoxaparin/Lovenox 30 mg SQ BID (WT < 150 kg, CrCl > 30 mL/min) AND/OR *Sequential Compression Device (SCD) 5 or more Highest Order ONE of the following medications: *Heparin 5000 units SQ TID (Preferred with Epidurals) *Enoxaparin/Lovenox 40 mg SQ daily (WT < 150 kg, CrCl > 30 mL/min) *Enoxaparin/Lovenox 30 mg SQ daily (WT < 150 kg, CrCl > 10-29 mL/min) *Enoxaparin/Lovenox 30 mg SQ BID (WT < 150 kg, CrCl > 30 mL/min) AND *Sequential Compression Device (SCD) Assessment and Plan Problem List: (1) Sepsis due to cellulitis ICD Code: A41.9 - Sepsis, unspecified organism; L03.90 - Sepsis due to cellulitis Status: Acute (2) Lymphedema of both lower extremities ICD Code: I89.0 - Lymphedema of both lower extremities Status: Chronic (3) Leukocytosis ICD Code: D72.829 - Leukocytosis Status: Resolved (4) History of pulmonary embolism ICD Code: Z86.711 - Personal history of pulmonary embolism (5) History of DVT of lower extremity ICD Code: Z86.718 - Personal history of other venous thrombosis and embolism Assessment and Plan 42-year-old male with Sepsis: Temp > 100.9 or < 96.8, Heart rate over 90, WBC > 84099, < 4000 or > 10 % bands; Infect source susp/known (BLE cellulitis) with Lactic acid. CXR noted and review by me with no acute finding and only with minimal atelectasis s/p Vancomycin and Zosyn IV x 1 in ED and now on Cefepime IV however 2/2 to previous wound culture 05/11/17 positive for GBS and staph which was sensitive to Rocephin , therefore will switch to Rocephin pending culture Bilateral lower extremity cellulitis s/p Vancomycin and Zosyn IV x 1 in E.D Currently on Cefepime IV however 2/2 to previous wound culture 05/11/17 positive for GBS and staph which was sensitive to Rocephin , therefore will switch to Rocephin IV pending culture. Check wound culture Consult Infectious disease Specialist PRN H/O DVT/PE Resume Xarelto DVT prophylaxis: Xarelto Code Status Full code Discussed Condition With Patient Physician Certification 2 Midnight Certification Type: Admission for Inpatient Services Order for Inpatient Services The services are ordered in accordance with Medicare regulations or non- Medicare payer requirements, as applicable. In the case of services not specified as inpatient-only, they are appropriately provided as inpatient services in accordance with the 2-midnight benchmark. Estimated LOS (days): 2 days is the estimated time the patient will need to remain in the hospital, assuming treatment plan goals are met and no additional complications. Post-Hospital Plan: Not yet determined Carlos Kline MD Jun 02, 2017 10:27
[2017-06-02] MEDS ORDERED: cefTRIAXone INJ 1,000 MG in SODIUM CHLORIDE 0.9% INJ 100 ML IV SCH (12:00)
[2017-06-02] MEDS ORDERED: RESP: ALBUTEROL 2.5 MG/IPRATROPIUM 0.5 MG NEB (PRN) NEB (12:15)
[2017-06-02] MEDS: VANCOMYCIN INJ 2,000 MG in SODIUM CHLORID 0.9% 500 ML INJ 500 ML IV SCH (15:38)
--- NOTE | 2017-06-02 17:58 | EKG ---
Date Performed: 06/01/2017 Time Performed: 23:56:21 PTAGE: 42 years EKG: SINUS TACHYCARDIA LOW QRS VOLTAGE IN PRECORDIAL LEADS Poor R wave transition. LEFT ANTERIOR FASCICULAR BLOCK ABNORMAL ECG PREVIOUS TRACING : 02/21/2017 22.43 DOCTOR: Rikki Driscoll Interpretating Date/Time 06/02/2017 17:57:50
[2017-06-02] MEDS: LACTOBACILLUS ACIDOPHILUS TAB PO SCH (20:27)
[2017-06-03] VITALS: BP 131/84; PULSE 90; RESP 22; TEMP 99.7; O2SAT 95
[2017-06-03] MEDS: VANCOMYCIN INJ 2,000 MG in SODIUM CHLORID 0.9% 500 ML INJ 500 ML IV SCH ×2 (02:34→14:58)
[2017-06-03 06:47] LABS: BASOPHIL % 0.3 % (0.0-2.0); EOSINOPHIL % 0.6 % (0.0-4.0); HEMATOCRIT 39.2 % (39.0-51.0); HEMOGLOBIN 12.6 GM/DL (13.0-17.0); LYMPH % 7.8 % (9.0-44.0); LYMPHOCYTE # 0.6 TH/MM3 (1.0-4.8); MEAN CORPUSCULAR HEMOGLOBIN 27.7 PG (27.0-34.0); MEAN CORPUSCULAR HGB CONC 32.3 % (32.0-36.0); MEAN PLATELET VOLUME 8.4 FL (7.0-11.0); MONO % 7.5 % (0.0-8.0); MONOCYTE # 0.6 TH/MM3 (0-0.9); NEUT % 83.8 % (16.0-70.0); PLATELET COUNT 221 TH/MM3 (150-450); RED BLOOD COUNT 4.56 MIL/MM3 (4.50-5.90); RED CELL DISTRIBUTION WIDTH 12.9 % (11.6-17.2); WHITE BLOOD COUNT 8.2 TH/MM3 (4.0-11.0)
[2017-06-03 07:03] LABS: CHLORIDE 106 MEQ/L (98-107); SODIUM (NA) 138 MEQ/L (136-145)
[2017-06-03 07:06] LABS: CALCIUM 7.9 MG/DL (8.5-10.1)
[2017-06-03 07:07] LABS: ALBUMIN 2.6 GM/DL (3.4-5.0); BLOOD UREA NITROGEN 10 MG/DL (7-18); GLUCOSE,RANDOM 106 MG/DL (74-106)
[2017-06-03 07:10] LABS: ALT (GPT) 17 U/L (12-78); AST (GOT) 19 U/L (15-37); CREATININE 0.85 MG/DL (0.60-1.30); GLOMERULAR FILTRATION RATE 98 ML/MIN (>89)
[2017-06-03 07:11] LABS: TOTAL BILIRUBIN ADULT 0.4 MG/DL (0.2-1.0); TOTAL PROTEIN 7.7 GM/DL (6.4-8.2)
[2017-06-03 07:13] LABS: ALKALINE PHOSPHATASE 54 U/L (45-117)
[2017-06-03] MEDS: LACTOBACILLUS ACIDOPHILUS TAB PO SCH ×2 (07:58→21:11)
[2017-06-03] MEDS: DOCUSATE SODIUM 50 MG/SENNA 8.6 MG TAB PO SCH ×2 (07:58→21:12)
[2017-06-03] MEDS: RIVAROXABAN 10 MG TAB PO SCH (07:58)
[2017-06-03 08:00] VITALS: BP 127/80; PULSE 95; RESP 18; TEMP 99.1; O2SAT 94
[2017-06-03] MEDS: SODIUM CHLORIDE 0.9% FLUSH 10 ML FLUSH IV FLUSH SCH ×2 (08:00→21:11)
[2017-06-03] MEDS: cefTRIAXone INJ 1,000 MG in SODIUM CHLORIDE 0.9% INJ 100 ML IV SCH (08:00)
[2017-06-03] MEDS: ACETAMINOPHEN/HYDROcodone 325 MG/5 MG TAB PO PRN ×2 (09:46→21:17)
[2017-06-03] MEDS ORDERED: INFLUENZA VIRUS VACCINE (QUADRIVALENT) 0.5 ML SYR IM ONE (10:00)
[2017-06-03 12:00] VITALS: BP 127/76; PULSE 85; RESP 18; TEMP 96.9; O2SAT 94
--- NOTE | 2017-06-03 14:51 | HHI.PR ---
Subjective Remarks Pt feeling a little bit better this morning. vomiting seems to have resolved. ate breakfast but didn't want lunch. he will try to eat dinner. complains of some pain in his right calf and states that he feels "knots" which are new and painful. Pt states he has a hx of DVT on the right for which he takes xarelto. Lightheadedness and dizziness has improved and doesn't experience this today Objective Vitals Vital Signs Date Time Temp Pulse Resp B/P (MAP) Pulse Ox O2 Delivery O2 Flow Rate FiO2 06/03/17 12:00 96.9 85 18 127/76 (93) 94 06/03/17 08:00 99.1 95 18 127/80 (96) 94 06/03/17 00:00 99.7 90 22 131/84 (100) 95 06/02/17 20:00 95.6 87 20 111/77 (88) 96 06/02/17 16:00 100.9 103 18 130/69 (89) 95 I/O 06/02/17 06/02/17 06/02/17 06/03/17 06/03/17 06/03/17 07:00 15:00 23:00 07:00 15:00 23:00 Intake Total 2800 ml 1015 ml 580 ml 720 ml 100 ml Output Total 600 ml 250 ml 600 ml Balance 2200 ml 1015 ml 330 ml 120 ml 100 ml Intake Oral 625 ml 480 ml 720 ml IV Total 2800 ml 390 ml 100 ml 100 ml Output Urine Total 600 ml 250 ml 600 ml # Voids 2 4 # Bowel Movements 0 0 Result Diagram: 06/03/17 0615 06/03/17 0615 Imaging Last Impressions Chest X-Ray 06/01/17 9866 Signed Impressions: Service Date/Time: Friday, June 02, 2017 00:06 - CONCLUSION: 1. No acute findings. Minimal basilar atelectasis. Sage Kwon MD Objective Remarks GENERAL: This is a well-nourished, well-developed patient, in no apparent distress. SKIN: erythema noted on the right calf right below that popliteal area. There is an area of induration. venous stasis noted as well on both legs. Multiple scabs, non draining at this time, somewhat foul smelling. CARDIOVASCULAR: Regular rate and rhythm without murmurs RESPIRATORY: Clear to auscultation. Breath sounds equal bilaterally. No wheezes GASTROINTESTINAL: Abdomen soft, non-tender, nondistended. No guarding. MUSCULOSKELETAL: amee pedal edema, RLE larger compared to the LLE. Has chronic venous stasis changes bilaterally. Has patches of erythema in his L leg. NEUROLOGICAL: Awake and alert. Normal speech. A/P Problem List: (1) Sepsis due to cellulitis ICD Code: A41.9 - Sepsis, unspecified organism; L03.90 - Sepsis due to cellulitis Status: Acute (2) Lymphedema of both lower extremities ICD Code: I89.0 - Lymphedema of both lower extremities Status: Chronic (3) Leukocytosis ICD Code: D72.829 - Leukocytosis Status: Resolved (4) History of pulmonary embolism ICD Code: Z86.711 - Personal history of pulmonary embolism (5) History of DVT of lower extremity ICD Code: Z86.718 - Personal history of other venous thrombosis and embolism Assessment and Plan 42-year-old male with Sepsis: Temp 103, Heart rate over 129, WBC 14.3; Infect source susp/known (BLE cellulitis) CXR noted no acute finding and only with minimal atelectasis s/p Vancomycin and Zosyn IV x 1 in ED and now on Cefepime IV however 2/2 to previous wound culture 05/11/17 positive for GBS and staph which was sensitive to Rocephin , currently is on rocephin and vanco. I will go ahead and consult ID for further recs. Check Right lower ext u/s to r/o abscess. Pt has a known hx of DVT on the right currently on xarelto. Wound cx growing group A strep last temp yesterday 100.9 Nausea/vomiting: seems to be resolving w zofran. no vomiting this morning. H/O DVT/PE on Xarelto DVT prophylaxis: Xarelto Discharge Planning ID consult pending and f/u on Right Lower Ext u/s Shani Villa MD Jun 03, 2017 14:51
--- NOTE | 2017-06-03 15:55 | RADRPT ---
EXAM DATE/TIME: 06/03/2017 15:08 [facility] COMPARISON: No previous studies available for comparison. INDICATIONS : Right calf cellulitis. MEDICAL HISTORY : Deep venous thrombosis. Renal calculi. Pulmonary embolism. Depression. Anticoagulant therapy, Xar elto. SURGICAL HISTORY : Tonsillectomy. Kidney stone removal. Back surgery. ENCOUNTER: Initial ACUITY: 1 day PAIN SCORE: 10/10 LOCATION: Right leg. TECHNIQUE: Venous ultrasound of the leg was performed from the inguinal ligament to the proximal calf. Real-charo e, color Doppler and spectral tracing, compression and augmentation techniques were used. FINDINGS: There is normal compressibility of the deep venous system from the inguinal region to the proximal ca lf. No echogenic clot is seen in the lumen of the common femoral, femoral, popliteal, and posterior tibial veins. There is a normal response of the venous system to proximal and distal augmentation an d respiration. Edematous soft tissues of the right calf are seen. CONCLUSION: 1. No deep venous thrombosis right leg. 2. Prominent lymph node the right groin measures 5.2 x 6.0 x 2.0 cm.. Carlos Qureshi MD on June 03, 2017 at 15:51 Board Certified Radiologist. This report was verified electronically.
--- NOTE | 2017-06-03 17:47 | PD.CONS ---
History of Present Illness Service ID CONSULT DR CHATMAN Consult Requested By Reason for Consult RIGHT LEG SWELLING AND REDNESS Primary Care Physician No Primary Care Physician Diagnoses: (1) Cellulitis (2) Lymphedema of both lower extremities History of Present Illness 42 YR MALE WITH CHRONIC LYMPHEDEMA IS ADMITTED WITH RIGHT LEG REDNESS AND SWELLING. HE STATES HIS LEGS HAVE BEEN SPLITTING OPEN FOR A MONTH OFF./ ON. HE STARTED TO NOTICE REDNESS AND DRAINAGE FROM THE LEFT LEG AND DECIDED TO COME IN AFTER 2 DAYS OF INCREASED PAIN. HE HAS A HISTORY OF CELLULITIS IN THE PAST. HE DENIES DIABETES, AND HYPERTENSION. HE LIVES A LONE, HE IS . HE WAS STARTED ON ZOSYN. HE HAS MULTIPLE OPEN WOUNDS OVER BILATERAL LEGS. RIGHT LEG STARTED TO SWELL AND BECOME RED SINCE HE WAS ADMITTED. CULTURES + STREP GRP B LEFT LEG. ID CONSULTED. Review of Systems Constitutional: COMPLAINS OF: Fatigue, Fever Cardiovascular: COMPLAINS OF: Lower Extremity Edema Integumentary: COMPLAINS OF: Abnormal pigmentation (BLE) Hematologic/lymphatic: DENIES: Bruising Neurologic: DENIES: Abnormal gait, Headache, Localized weakness Psychiatric: DENIES: Anxiety Past Family Social History Allergies: Coded Allergies: strawberry (Verified Allergy, Severe, Anaphylaxis, 05/11/17) THROAT CLOSES /RASH Past Medical History Past Family Social History Past Medical History HTN, Depression, h/o DVT and Chronic LE Cellulitis Past Surgical History Past Surgical History Lithotripsy, Tonsillectomy Family History Family History Mother DM Father DM and Parkinson's Social History Social History Denies EtOH, tobacco or illicit drug use. Physical Exam Vital Signs Vital Signs Date Time Temp Pulse Resp B/P (MAP) Pulse Ox O2 Delivery O2 Flow Rate FiO2 06/03/17 12:00 96.9 85 18 127/76 (93) 94 06/03/17 08:00 99.1 95 18 127/80 (96) 94 06/03/17 00:00 99.7 90 22 131/84 (100) 95 06/02/17 20:00 95.6 87 20 111/77 (88) 96 Physical Exam GENERAL: This is a overweight male chronically ill patient, in no apparent distress. SKIN: No rashes, ecchymoses or lesions. Cool and dry. HEAD: Atraumatic. Normocephalic. No temporal or scalp tenderness. EYES: Pupils equal round and reactive. Extraocular motions intact. No scleral icterus. No injection or drainage. ENT: Nose without bleeding, purulent drainage or septal hematoma. Throat without erythema, tonsillar hypertrophy or exudate. Uvula midline. Airway patent. NECK: Trachea midline. No JVD or lymphadenopathy. Supple, nontender, no meningeal signs. CARDIOVASCULAR: Regular rate and rhythm without murmurs, gallops, or rubs. RESPIRATORY: Clear to auscultation. Breath sounds equal bilaterally. No wheezes , rales, or rhonchi. GASTROINTESTINAL: Abdomen soft, non-tender, nondistended. No hepato-splenomegaly , or palpable masses. No guarding. MUSCULOSKELETAL: ble swelling with redness and multiple open lesions they appear to be drying and improving NEUROLOGICAL: Awake and alert. Cranial nerves II through XII intact. Motor and sensory grossly within normal limits. Five out of 5 muscle strength in all muscle groups. Normal speech. Laboratory Laboratory Tests Test 06/03/17 06:15 White Blood Count 8.2 Red Blood Count 4.56 Hemoglobin 12.6 Hematocrit 39.2 Mean Corpuscular Volume 86.0 Mean Corpuscular Hemoglobin 27.7 Mean Corpuscular Hemoglobin Concent 32.3 Red Cell Distribution Width 12.9 Platelet Count 221 Mean Platelet Volume 8.4 Neutrophils (%) (Auto) 83.8 Lymphocytes (%) (Auto) 7.8 Monocytes (%) (Auto) 7.5 Eosinophils (%) (Auto) 0.6 Basophils (%) (Auto) 0.3 Neutrophils # (Auto) 7.0 Lymphocytes # (Auto) 0.6 Monocytes # (Auto) 0.6 Eosinophils # (Auto) 0.0 Basophils # (Auto) 0.0 CBC Comment DIFF FINAL Differential Comment Blood Urea Nitrogen 10 Creatinine 0.85 Random Glucose 106 Total Protein 7.7 Albumin 2.6 Calcium Level 7.9 Alkaline Phosphatase 54 Aspartate Amino Transf (AST/SGOT) 19 Alanine Aminotransferase (ALT/SGPT) 17 Total Bilirubin 0.4 Sodium Level 138 Potassium Level 4.1 Chloride Level 106 Carbon Dioxide Level 26.0 Anion Gap 6 Estimat Glomerular Filtration Rate 98 Date/Time Source Procedure Growth Status 06/01/17 23:50 Blood Peripheral Aerobic Blood Culture - Preliminary NO GROWTH IN 1 DAY Resulted 06/01/17 23:50 Blood Peripheral Anaerobic Blood Culture - Preliminary NO GROWTH IN 1 DAY Resulted 06/02/17 00:15 Nasal Washing Influenza Types A,B Antigen (NAKUL) - Final NEGATIVE FOR FLU A AND B ANTIGEN.... Complete 06/02/17 00:15 Wound Leg Gram Stain - Final Resulted 06/02/17 00:15 Wound Culture - Preliminary Group A Beta Strep Resulted Result Diagram: 06/03/1715 06/03/1715 Assessment and Plan Problem List: (1) Claudication ICD Codes: I73.9 - Claudication Status: Acute (2) Dysphagia ICD Codes: R13.10 - Dysphagia, unspecified Status: Acute (3) Cellulitis ICD Codes: L03.90 - Cellulitis, unspecified Plan: pt grew strep on rocephin adjust dose will monitor and fu continue vancomycin another 48hr and then may be able to change to po (4) Lymphedema of both lower extremities ICD Codes: I89.0 - Lymphedema of both lower extremities Status: Chronic (5) Obesity (BMI 30-39.9) ICD Codes: E66.9 - Obesity, unspecified Status: Acute Problem Qualifiers (1) Cellulitis: Wendy Kaur Jun 03, 2017 17:47
[2017-06-03 20:00] VITALS: BP 123/75; PULSE 89; RESP 20; TEMP 98.6; O2SAT 97
[2017-06-04] VITALS: BP 141/82; PULSE 88; RESP 20; TEMP 98.2; O2SAT 95
[2017-06-04] MEDS ORDERED: PHARMACY ORDERED LAB ONE (02:45)
[2017-06-04] MEDS: VANCOMYCIN INJ 2,000 MG in SODIUM CHLORID 0.9% 500 ML INJ 500 ML IV SCH (03:01)
[2017-06-04 08:00] VITALS: BP 137/101; PULSE 88; RESP 16; TEMP 99.2; O2SAT 95
[2017-06-04] MEDS: SODIUM CHLORIDE 0.9% FLUSH 10 ML FLUSH IV FLUSH SCH ×2 (08:57→21:20)
[2017-06-04] MEDS: cefTRIAXone INJ 1,000 MG in SODIUM CHLORIDE 0.9% INJ 100 ML IV SCH (08:57)
[2017-06-04] MEDS: RIVAROXABAN 10 MG TAB PO SCH (08:57)
[2017-06-04] MEDS: LACTOBACILLUS ACIDOPHILUS TAB PO SCH ×2 (08:57→21:19)
[2017-06-04] MEDS: DOCUSATE SODIUM 50 MG/SENNA 8.6 MG TAB PO SCH ×2 (08:58→21:20)
[2017-06-04] MEDS: ACETAMINOPHEN/HYDROcodone 325 MG/5 MG TAB PO PRN ×2 (09:06→22:39)
--- NOTE | 2017-06-04 10:24 | HHI.PR ---
Subjective Remarks Doing ok. Continues to have pain in the right lower extremity. Still erythemous but some improvement per pt. Tolerating a diet. No n/v Objective Vitals Vital Signs Date Time Temp Pulse Resp B/P (MAP) Pulse Ox O2 Delivery O2 Flow Rate FiO2 06/04/17 08:00 99.2 88 16 137/101 (113) 95 06/04/17 00:00 98.2 88 20 141/82 (101) 95 06/03/17 20:00 98.6 89 20 123/75 (91) 97 06/03/17 12:00 96.9 85 18 127/76 (93) 94 I/O 06/03/17 06/03/17 06/03/17 06/04/17 06/04/17 06/04/17 06:59 14:59 22:59 06:59 14:59 22:59 Intake Total 720 ml 1050 ml 520 ml 520 ml Output Total 600 ml 1050 ml 400 ml Balance 120 ml 0 ml 520 ml 120 ml Intake Oral 720 ml 950 ml 0 ml IV Total 100 ml 520 ml 520 ml Output Urine Total 600 ml 1050 ml 400 ml # Voids 3 # Bowel Movements 0 2 Result Diagram: 06/03/17 0615 06/03/17 0615 Imaging Last Impressions Lower Extremity Ultrasound 06/03/17 0000 Signed Impressions: Service Date/Time: Saturday, June 03, 2017 15:08 - CONCLUSION: 1. No deep venous thrombosis right leg. 2. Prominent lymph node the right groin measures 5.2 x 6.0 x 2.0 cm.. Carlos Qureshi MD Chest X-Ray 06/01/17 [id number] Signed Impressions: Service Date/Time: Friday, June 02, 2017 00:06 - CONCLUSION: 1. No acute findings. Minimal basilar atelectasis. Sage Kwon MD Objective Remarks GENERAL: This is a well-nourished, well-developed patient SKIN: erythema noted on the right calf right below that popliteal area. There is an area of induration but appears less. venous stasis noted as well on both legs. Multiple scabs, non draining at this time, somewhat foul smelling. CARDIOVASCULAR: Regular rate and rhythm without murmurs RESPIRATORY: Clear to auscultation. Breath sounds equal bilaterally. No wheezes GASTROINTESTINAL: Abdomen soft, non-tender, nondistended. No guarding. MUSCULOSKELETAL: amee pedal edema, RLE larger compared to the LLE. Has chronic venous stasis changes bilaterally. Has patches of erythema in his L leg. NEUROLOGICAL: Awake and alert. Normal speech. A/P Problem List: (1) Sepsis due to cellulitis ICD Code: A41.9 - Sepsis, unspecified organism; L03.90 - Sepsis due to cellulitis Status: Acute (2) Lymphedema of both lower extremities ICD Code: I89.0 - Lymphedema of both lower extremities Status: Chronic (3) Leukocytosis ICD Code: D72.829 - Leukocytosis Status: Resolved (4) History of pulmonary embolism ICD Code: Z86.711 - Personal history of pulmonary embolism (5) History of DVT of lower extremity ICD Code: Z86.718 - Personal history of other venous thrombosis and embolism Assessment and Plan 42-year-old male with Sepsis: Temp 103, Heart rate over 129, WBC 14.3; Infect source susp/known (BLE cellulitis) CXR noted no acute finding and only with minimal atelectasis s/p Vancomycin and Zosyn IV x 1 in ED and then was placed on Cefepime IV however 2/2 to previous wound culture 05/11/17 positive for GBS and staph which was sensitive to Rocephin . Pt was switched to rocephin and vanco. ID evaluated the pt and recommend keeping current abx and vanco x 48hrs and they will possibly transition to po then. Right lower ext u/s didn't show DVT but prominent right groin 5.2x6.0x2.0cm. Wound cx growing group A strep/staph afebrile x 24 hrs. Nausea/vomiting: seems to be resolving w zofran. no vomiting this morning. H/O DVT/PE on Xarelto DVT prophylaxis: Xarelto Discharge Planning awaiting final recs from ID most likely will need outpatient repeat imaging studies of groin lymph node. Could be related to current cellulitis. Shani Villa MD Jun 04, 2017 10:24
[2017-06-04 12:00] VITALS: BP 137/89; PULSE 80; RESP 18; TEMP 97.8; O2SAT 96
[2017-06-04] MEDS: VANCOMYCIN INJ 2,300 MG in SODIUM CHLORID 0.9% 500 ML INJ 500 ML IV SCH (13:30)
[2017-06-04 16:00] VITALS: BP 125/88; PULSE 81; RESP 18; TEMP 97.2; O2SAT 97
--- NOTE | 2017-06-04 19:01 | HHI.IDPN ---
Subjective Subjective Remarks Feels better Kegs less painful No fevers Antibiotics Vancomycin and Ceftriaxone Lines Peripheral IV Past Medical History HTN, Depression, h/o DVT and Chronic LE Cellulitis Allergies: Coded Allergies: strawberry (Verified Allergy, Severe, Anaphylaxis, 05/11/17) THROAT CLOSES /RASH Objective . Vital Signs Date Time Temp Pulse Resp B/P (MAP) Pulse Ox O2 Delivery O2 Flow Rate FiO2 06/04/17 16:00 97.2 81 18 125/88 (100) 97 06/04/17 12:00 97.8 80 18 137/89 (105) 96 06/04/17 08:00 99.2 88 16 137/101 (113) 95 06/04/17 00:00 98.2 88 20 141/82 (101) 95 06/03/17 20:00 98.6 89 20 123/75 (91) 97 06/04/17 06/04/17 06/05/17 15:00 23:00 07:00 Intake Total 600 ml Output Total 525 ml Balance 75 ml Intake Oral 600 ml Output Urine Total 525 ml . Laboratory Tests Test 06/03/17 06:15 White Blood Count 8.2 TH/MM3 Red Blood Count 4.56 MIL/MM3 Hemoglobin 12.6 GM/DL Hematocrit 39.2 % Mean Corpuscular Volume 86.0 FL Mean Corpuscular Hemoglobin 27.7 PG Mean Corpuscular Hemoglobin Concent 32.3 % Red Cell Distribution Width 12.9 % Platelet Count 221 TH/MM3 Mean Platelet Volume 8.4 FL Neutrophils (%) (Auto) 83.8 % Lymphocytes (%) (Auto) 7.8 % Monocytes (%) (Auto) 7.5 % Eosinophils (%) (Auto) 0.6 % Basophils (%) (Auto) 0.3 % Neutrophils # (Auto) 7.0 TH/MM3 Lymphocytes # (Auto) 0.6 TH/MM3 Monocytes # (Auto) 0.6 TH/MM3 Eosinophils # (Auto) 0.0 TH/MM3 Basophils # (Auto) 0.0 TH/MM3 CBC Comment DIFF FINAL Differential Comment Laboratory Tests Test 06/03/17 06:15 Blood Urea Nitrogen 10 MG/DL Creatinine 0.85 MG/DL Random Glucose 106 MG/DL Total Protein 7.7 GM/DL Albumin 2.6 GM/DL Calcium Level 7.9 MG/DL Alkaline Phosphatase 54 U/L Aspartate Amino Transf (AST/SGOT) 19 U/L Alanine Aminotransferase (ALT/SGPT) 17 U/L Total Bilirubin 0.4 MG/DL Sodium Level 138 MEQ/L Potassium Level 4.1 MEQ/L Chloride Level 106 MEQ/L Carbon Dioxide Level 26.0 MEQ/L Anion Gap 6 MEQ/L Estimat Glomerular Filtration Rate 98 ML/MIN Microbiology Date/Time Source Procedure Growth Status 06/01/17 23:50 Blood Peripheral Aerobic Blood Culture - Preliminary NO GROWTH IN 2 DAYS Resulted 06/01/17 23:50 Blood Peripheral Anaerobic Blood Culture - Preliminary NO GROWTH IN 2 DAYS Resulted 06/01/17 23:45 Blood Peripheral Aerobic Blood Culture - Preliminary NO GROWTH IN 2 DAYS Resulted 06/01/17 23:45 Blood Peripheral Anaerobic Blood Culture - Preliminary NO GROWTH IN 2 DAYS Resulted 06/02/17 00:15 Nasal Washing Influenza Types A,B Antigen (NAKUL) - Final NEGATIVE FOR FLU A AND B ANTIGEN.... Complete 06/02/17 00:15 Wound Leg Gram Stain - Final Resulted 06/02/17 00:15 Wound Culture - Preliminary Group A Beta Strep Staphylococcus Aureus Resulted Physical Exam GENERAL: This is a overweight male chronically ill patient, in no apparent distress. SKIN: Cellulitis improved. HEAD: Atraumatic. Normocephalic. No temporal or scalp tenderness. EYES: Pupils equal round and reactive. Extraocular motions intact. No scleral icterus. No injection or drainage. ENT: Nose without bleeding, purulent drainage or septal hematoma. Throat without erythema, tonsillar hypertrophy or exudate. Uvula midline. Airway patent. NECK: Trachea midline. No JVD or lymphadenopathy. Supple, nontender, no meningeal signs. CARDIOVASCULAR: Regular rate and rhythm without murmurs, gallops, or rubs. RESPIRATORY: Clear to auscultation. Breath sounds equal bilaterally. No wheezes , rales, or rhonchi. GASTROINTESTINAL: Abdomen soft, non-tender, nondistended. No hepato-splenomegaly , or palpable masses. No guarding. MUSCULOSKELETAL: ble swelling with redness improved and multiple open lesions they appear to be drying and improving NEUROLOGICAL: Awake and alert. Cranial nerves II through XII intact. Motor and sensory grossly within normal limits. Five out of 5 muscle strength in all muscle groups. Normal speech. Assessment & Plan Diagnosis: (1) Sepsis due to cellulitis ICD Codes: A41.9 - Sepsis, unspecified organism; L03.90 - Sepsis due to cellulitis Status: Acute Plan: Clinically improved Should be able to change to PO antibiotics in next 24 hrs Can be put on Keflex 500 mg po qid If culture is also positive for MRSA then can add Bactrim DS po bid (2) Lymphedema of both lower extremities ICD Codes: I89.0 - Lymphedema of both lower extremities Status: Chronic Kadi Wade MD Jun 04, 2017 19:01
[2017-06-04 20:00] VITALS: BP 129/85; PULSE 82; RESP 20; TEMP 96.8; O2SAT 96
[2017-06-05] VITALS: BP 134/83; PULSE 78; RESP 20; TEMP 97.5; O2SAT 96
[2017-06-05] MEDS: VANCOMYCIN INJ 2,300 MG in SODIUM CHLORID 0.9% 500 ML INJ 500 ML IV SCH (00:12)
[2017-06-05 06:30] LABS: AUTOMATED NEUTROPHIL # 3.9 TH/MM3 (1.8-7.7); BASOPHIL % 0.5 % (0.0-2.0); EOSINOPHIL # 0.3 TH/MM3 (0-0.4); EOSINOPHIL % 4.5 % (0.0-4.0); HEMATOCRIT 42.7 % (39.0-51.0); HEMOGLOBIN 13.8 GM/DL (13.0-17.0); LYMPH % 16.1 % (9.0-44.0); LYMPHOCYTE # 0.9 TH/MM3 (1.0-4.8); MEAN CELL VOLUME 86.5 FL (80.0-100.0); MEAN CORPUSCULAR HEMOGLOBIN 27.8 PG (27.0-34.0); MEAN CORPUSCULAR HGB CONC 32.2 % (32.0-36.0); MEAN PLATELET VOLUME 8.1 FL (7.0-11.0); MONOCYTE # 0.6 TH/MM3 (0-0.9); NEUT % 67.9 % (16.0-70.0); PLATELET COUNT 239 TH/MM3 (150-450); RED BLOOD COUNT 4.94 MIL/MM3 (4.50-5.90); RED CELL DISTRIBUTION WIDTH 12.8 % (11.6-17.2); WHITE BLOOD COUNT 5.7 TH/MM3 (4.0-11.0)
[2017-06-05 06:50] LABS: CREATININE 0.7 MG/DL (0.60-1.30)
[2017-06-05 08:00] VITALS: BP 128/86; PULSE 80; RESP 18; TEMP 98.5; O2SAT 98
[2017-06-05] MEDS: DOCUSATE SODIUM 50 MG/SENNA 8.6 MG TAB PO SCH (09:00)
[2017-06-05] MEDS: SODIUM CHLORIDE 0.9% FLUSH 10 ML FLUSH IV FLUSH SCH (09:00)
[2017-06-05] MEDS: cefTRIAXone INJ 1,000 MG in SODIUM CHLORIDE 0.9% INJ 100 ML IV SCH (09:00)
[2017-06-05] MEDS: RIVAROXABAN 10 MG TAB PO SCH (09:10)
[2017-06-05] MEDS: LACTOBACILLUS ACIDOPHILUS TAB PO SCH (09:10)
[2017-06-05] MEDS ORDERED: CEPH-460 PO (09:41)
--- NOTE | 2017-06-05 09:42 | HHI.DCPOC ---
Discharge Care Plan Diagnosis: (1) Lymphedema of both lower extremities (2) Cellulitis Goals to Promote Your Health * To prevent worsening of your condition and complications * To maintain your health at the optimal level Directions to Meet Your Goals Take your medications as prescribed Follow your dietary instruction Follow activity as directed Keep your appointments as scheduled Take your immunizations and boosters as scheduled If your symptoms worsen call your PCP, if no PCP go to Urgent Care Center or Emergency Room Smoking is Dangerous to Your Health. Avoid second hand smoke Call the 24-hour hour crisis hotline for domestic abuse at [place] Jun 05, 2017 09:41
[2017-06-05] MEDS ORDERED: CEPHALEXIN MONOHYDRATE 250 MG CAP PO ONE (09:45)
[2017-06-05] MEDS ORDERED: CEPHALEXIN MONOHYDRATE 500 MG CAP PO ONE (10:15)
--- NOTE | 2017-06-05 10:46 | HHI.IDPN ---
Subjective Subjective Remarks NO FEVER NO CHILLS FEELING BETTER LEGS LESS TENDER Antibiotics Vancomycin and Ceftriaxone Lines Peripheral IV Past Medical History HTN, Depression, h/o DVT and Chronic LE Cellulitis Allergies: Coded Allergies: strawberry (Verified Allergy, Severe, Anaphylaxis, 05/11/17) THROAT CLOSES /RASH Objective . Vital Signs Date Time Temp Pulse Resp B/P (MAP) Pulse Ox O2 Delivery O2 Flow Rate FiO2 06/05/17 08:00 98.5 80 18 128/86 (100) 98 06/05/17 00:00 97.5 78 20 134/83 (100) 96 06/04/17 20:00 96.8 82 20 129/85 (100) 96 06/04/17 16:00 97.2 81 18 125/88 (100) 97 06/04/17 12:00 97.8 80 18 137/89 (105) 96 . Laboratory Tests Test 06/05/17 06:00 White Blood Count 5.7 TH/MM3 Red Blood Count 4.94 MIL/MM3 Hemoglobin 13.8 GM/DL Hematocrit 42.7 % Mean Corpuscular Volume 86.5 FL Mean Corpuscular Hemoglobin 27.8 PG Mean Corpuscular Hemoglobin Concent 32.2 % Red Cell Distribution Width 12.8 % Platelet Count 239 TH/MM3 Mean Platelet Volume 8.1 FL Neutrophils (%) (Auto) 67.9 % Lymphocytes (%) (Auto) 16.1 % Monocytes (%) (Auto) 11.0 % Eosinophils (%) (Auto) 4.5 % Basophils (%) (Auto) 0.5 % Neutrophils # (Auto) 3.9 TH/MM3 Lymphocytes # (Auto) 0.9 TH/MM3 Monocytes # (Auto) 0.6 TH/MM3 Eosinophils # (Auto) 0.3 TH/MM3 Basophils # (Auto) 0.0 TH/MM3 CBC Comment DIFF FINAL Differential Comment Laboratory Tests Test 06/05/17 06:00 Creatinine 0.70 MG/DL Estimat Glomerular Filtration Rate 123 ML/MIN Physical Exam GENERAL: This is a overweight male chronically ill patient, in no apparent distress. SKIN: Cellulitis improved. HEAD: Atraumatic. Normocephalic. No temporal or scalp tenderness. EYES: Pupils equal round and reactive. Extraocular motions intact. No scleral icterus. No injection or drainage. ENT: Nose without bleeding, purulent drainage or septal hematoma. Throat without erythema, tonsillar hypertrophy or exudate. Uvula midline. Airway patent. NECK: Trachea midline. No JVD or lymphadenopathy. Supple, nontender, no meningeal signs. CARDIOVASCULAR: Regular rate and rhythm without murmurs, gallops, or rubs. RESPIRATORY: Clear to auscultation. Breath sounds equal bilaterally. No wheezes , rales, or rhonchi. GASTROINTESTINAL: Abdomen soft, non-tender, nondistended. No hepato-splenomegaly , or palpable masses. No guarding. MUSCULOSKELETAL: ble swelling with redness improved and multiple open lesions they appear to be drying and improving NEUROLOGICAL: Awake and alert. Cranial nerves II through XII intact. Motor and sensory grossly within normal limits. Five out of 5 muscle strength in all muscle groups. Normal speech. Assessment & Plan Diagnosis: (1) Claudication ICD Codes: I73.9 - Claudication Status: Acute (2) Dysphagia ICD Codes: R13.10 - Dysphagia, unspecified Status: Acute (3) Cellulitis ICD Codes: L03.90 - Cellulitis, unspecified Plan: pt grew strep on rocephin adjust dose will monitor and fu Culture also now with Staph hold vanco until sensitivity back continue vancomycin another 48hr and then may be able to change to po (4) Lymphedema of both lower extremities ICD Codes: I89.0 - Lymphedema of both lower extremities Status: Chronic (5) Obesity (BMI 30-39.9) ICD Codes: E66.9 - Obesity, unspecified Status: Acute Problem Qualifiers (1) Cellulitis: Wendy Kaur Jun 05, 2017 10:45
[2017-06-05] MEDS ORDERED: BACT800T5 PO (10:54)
[2017-06-05] MEDS ORDERED: CEPHALEXIN MONOHYDRATE 500 MG CAP PO SCH (12:00)
--- NOTE | 2017-06-05 14:15 | HHI.DS ---
Discharge Summary Admission Date Jun 02, 2017 at 01:34 Discharge Date: Jun 05, 2017 Admitting Diagnosis BLE cellulitis; sepsis (1) Sepsis due to cellulitis ICD Code: A41.9 - Sepsis, unspecified organism; L03.90 - Sepsis due to cellulitis Status: Acute (2) Lymphedema of both lower extremities ICD Code: I89.0 - Lymphedema of both lower extremities Status: Chronic (3) Leukocytosis ICD Code: D72.829 - Leukocytosis Status: Resolved (4) History of pulmonary embolism ICD Code: Z86.711 - Personal history of pulmonary embolism (5) History of DVT of lower extremity ICD Code: Z86.718 - Personal history of other venous thrombosis and embolism Procedures None Brief History - From Admission 42-year-old male with a PMH of HTN, Depression, h/o DVT and Chronic LE Cellulitis who presented to the ER w/ complaints of fever, diarrheal episodes x several hours duration along with nausea and intractable vomiting patient has a known history of chronic bilateral lower extremity cellulitis, and was recently discharged from [facility] in May 2017 on a seven-day course of by mouth Levaquin which patient completed. However per patient, he hasn't noticed significant improvement and continue to have wounds to his left lower extremity more so than the right. He denies any chest pain or shortness of breath. During my exam, patient reported improvement of diarrheal episode since admission however continue to have nausea without any emesis. On Admission, patient was febrile with Tmax of 102.6, HR 129, BP 144/83 and 94%RA. Abnormal labs include 14.6. CXR with minimal atelectasis CBC/BMP: 06/05/17 0600 06/05/17 0600 Significant Findings Laboratory Tests Test 06/03/17 06:15 06/04/17 02:50 06/05/17 06:00 Hemoglobin 12.6 GM/DL (13.0-17.0) Neutrophils (%) (Auto) 83.8 % (16.0-70.0) Lymphocytes (%) (Auto) 7.8 % (9.0-44.0) Lymphocytes # (Auto) 0.6 TH/MM3 (1.0-4.8) 0.9 TH/MM3 (1.0-4.8) Albumin 2.6 GM/DL (3.4-5.0) Calcium Level 7.9 MG/DL (8.5-10.1) Monocytes (%) (Auto) 11.0 % (0.0-8.0) Eosinophils (%) (Auto) 4.5 % (0.0-4.0) Imaging Last Impressions Lower Extremity Ultrasound 06/03/17 0000 Signed Impressions: Service Date/Time: Saturday, June 03, 2017 15:08 - CONCLUSION: 1. No deep venous thrombosis right leg. 2. Prominent lymph node the right groin measures 5.2 x 6.0 x 2.0 cm.. Carlos Qureshi MD Chest X-Ray 06/01/17 2347 Signed Impressions: Service Date/Time: Friday, June 02, 2017 00:06 - CONCLUSION: 1. No acute findings. Minimal basilar atelectasis. Sage Kwon MD PE at Discharge GENERAL: This is a well-nourished, well-developed patient SKIN: erythema noted on the right calf right below that popliteal area. There is an area of induration but appears less. venous stasis noted as well on both legs. Multiple scabs, non draining at this time, somewhat foul smelling. CARDIOVASCULAR: Regular rate and rhythm without murmurs RESPIRATORY: Clear to auscultation. Breath sounds equal bilaterally. No wheezes GASTROINTESTINAL: Abdomen soft, non-tender, nondistended. No guarding. MUSCULOSKELETAL: amee pedal edema, RLE larger compared to the LLE. Has chronic venous stasis changes bilaterally. Has patches of erythema in his L leg. NEUROLOGICAL: Awake and alert. Normal speech. Hospital Course 42 year-old male with known history of chronic lymphedema, cellulitis of the bilateral lower extremities who presented to hospital with complaints of fever, nausea, vomiting, diarrhea. Patient had workup done emergency department and was found to have signs of sepsis with fever, tachycardia, leukocytosis and cellulitis/gastroenteritis. Patient was admitted with IV antibiotics and daily monitoring. Infectious disease was consulted for recommendations to indicated discontinuation of vancomycin, Rocephin for at 72 hours and then reevaluation. Infectious disease evaluated the patient again today and recommended that patient can be discharged home on Bactrim. Patient' s clinical appearance improved the second day he was in the hospital. His leukocytosis resolved. No longer had any tachycardia. Patient was eating, no longer was experiencing any nausea or vomiting. The patient only had 2 bowel minutes during his stay in the hospital, diarrhea did resolve. Patient clinically stable this time. We'll discharge accordingly. Pt Condition on Discharge: Stable Discharge Disposition: Discharge Home Discharge Time: > 30 minutes Discharge Instructions DIET: Follow Instructions for: As Tolerated, No Restrictions Activities you can perform: Regular-No Restrictions Activities to Avoid: Driving for 24 hrs Follow up Referrals: Infectious Disease - [address] Madden PCP Follow-up - 1 Week New Medications: Sulfamethoxazole-Trimethoprim (Bactrim DS) 800-160 Mg Tab 1 TAB PO BID for Infection, #20 TAB 0 Refills Continued Medications: Rivaroxaban (Xarelto) 10 Mg Tab 10 MG PO DAILY for Blood Clot Prevention, TAB 0 Refills Ron Ross Jun 05, 2017 14:15
[2017-06-05] MEDS ORDERED: PHARMACY ORDERED LAB ONE (23:45)
== END 2017-06-05 11:03 | disposition home or self-care (01) | DRG 872 ==
LOC: PHED 22:23 → PHEDA 06-02 01:34 → PH3A 06-02 02:19
PROVIDERS: ADMIT Hospitalist; ATTEND Hospitalist
DX: A41.9 Sepsis, unspecified organism (principal); Z68.43 Body mass index [BMI] 50.0-59.9, adult; I10 Essential (primary) hypertension; L03.115 Cellulitis of right lower limb; L03.116 Cellulitis of left lower limb; E66.9 Obesity, unspecified; F32.9 Major depressive disorder, single episode, unspecified; I89.0 Lymphedema, not elsewhere classified; B95.1 Streptococcus, group B, as the cause of diseases classified elsewhere; I70.219 Atherosclerosis of native arteries of extremities with intermittent claudication, unspecified extremity; R11.2 Nausea with vomiting, unspecified; R19.7 Diarrhea, unspecified; Z23 Encounter for immunization; Z79.01 Long term (current) use of anticoagulants; Z86.718 Personal history of other venous thrombosis and embolism; Z86.711 Personal history of pulmonary embolism
CPT/HCPCS: 71045; 80053; 80202; 81001; 82565; 83605; 83690; 83735; 84484; 85025; 85610; 85730; 86403; 87040; 87070; 87147; 87186; 87205; 87804; 90471; 90686; 93005; 93971; 96361; 96365; 96375; G0008; J0692; J0696; J2405; J2543; J3370; J7030; J7040; Q2038

== ENCOUNTER 2017-08-03 13:35 | Emergency (ER) | payer SELFPAY ==
[~2017-08-03] VITALS: Ht 182.9 cm; Wt 125.0 kg
[~2017-08-03 13:35] MED LIST changes: -DICL75TA PO
[2017-08-03 13:37] VITALS: BP 150/76; PULSE 94; RESP 17; TEMP 97.7; O2SAT 97
[2017-08-03] MEDS ORDERED: POLY10O EACH EYE (15:58)
--- NOTE | 2017-08-03 15:58 | PD ---
HPI Chief Complaint: Eye Problems/Injury Time Seen by Provider: 15:51 Travel History International Travel<30 days: No Contact w/Intl Traveler<30days: No Traveled to known affect area: No History of Present Illness HPI 42-year-old male presents to the emergency department with complaint of red, painful, swollen eyes, and purulent drainage from both of his eyes since yesterday. His left eye symptoms actually started yesterday in his right eye symptoms started today. Woke up with both of his eyes crusted shut this morning. Denies fever, vomiting. Denies change in vision. Reports eye itchiness. Was exposed to somebody with similar symptoms 1 week ago. Has tried clear eye eyedrops for symptom management. No known aggravating or relieving factors. Constantly aggravated. Symptoms are mild in severity. Denies significant past medical history. Allergies to strawberries. No primary care provider. Has no other medical complaints. No other modifying factors or associated signs and symptoms. PFSH Past Medical History Hx Anticoagulant Therapy: Yes (XARELTO) Arthritis: No Asthma: No Autoimmune Disease: No Anxiety: No Depression: Yes Heart Rhythm Problems: No Cancer: No Cardiovascular Problems: Yes (DVT right leg and lung) High Cholesterol: No Chemotherapy: No Chest Pain: No Congestive Heart Failure: No COPD: No Cerebrovascular Accident: No Diabetes: No Diminished Hearing: No Deep Vein Thrombosis: Yes (RIGHT LEG 09/2015) Endocrine: No GERD: No Genitourinary: Yes Headaches: No Hiatal Hernia: No Hypertension: No Immune Disorder: No Implanted Vascular Access Dvce: No Kidney Stones: Yes Musculoskeletal: No Neurologic: No Psychiatric: No Reproductive: No Respiratory: No Integumentary: Yes (CHRONIC CELLULITIS PHILLIP FEET) Immunizations Current: Yes Migraines: No Radiation Therapy: No Renal Failure: No Seizures: No Sleep Apnea: No Thyroid Disease: No Ulcer: No Past Surgical History Abdominal Surgery: No Cardiac Surgery: No Ear Surgery: No Endocrine Surgery: No Eye Surgery: No Genitourinary Surgery: Yes (KIDNEY STONE REMOVED) Gynecologic Surgery: No Oral Surgery: No Thoracic Surgery: No Tonsillectomy: Yes Other Surgery: Yes (kidney stones removed and back surgery 1995) Social History Alcohol Use: No (pt denies) Tobacco Use: No (pt denies ) Substance Use: No Allergies-Medications (Allergen,Severity, Reaction): Coded Allergies: strawberry (Verified Allergy, Severe, Anaphylaxis, 05/11/17) THROAT CLOSES /RASH Reported Meds & Prescriptions Reported Meds & Active Scripts Active Polytrim Opth Drops (Polymyxin/Trimethoprim Sulfate) 10,000-0.1 Unit/Ml-% Soln 2 Drop EACH EYE Q6HR 7 Days Bactrim DS (Sulfamethoxazole-Trimethoprim) 800-160 Mg Tab 1 Tab PO BID Reported Xarelto (Rivaroxaban) 10 Mg Tab 10 Mg PO DAILY Review of Systems Except as stated in HPI: all other systems reviewed are Neg Physical Exam Narrative GENERAL: Well-nourished, well-developed patient, in no acute distress ; afebrile, nontoxic-appearing SKIN: Warm and dry. HEAD: Atraumatic. Normocephalic. EYES: Pupils equal and round at 3 mm with brisk reaction. PERRLA. EOMI. Bilateral eye with mild scleral erythema and mild lid edema. No orbital tenderness, erythema or cellulitis. Bilateral eye without photophobia. No consensual photophobia. No scleral icterus. Yellowish purulent drainage to bilateral eyes. ENT: Mucosa pink and moist. Airway patent. EARS: Bilateral pinnae and external canals appear within normal limits. NECK: Trachea midline. No lymphadenopathy. CARDIOVASCULAR: Regular rate. RESPIRATORY: No accessory muscle use. GASTROINTESTINAL: Flat. NEUROLOGICAL: Awake and alert. Oriented 3. No obvious cranial nerve deficits. Motor grossly within normal limits. Normal speech. PSYCHIATRIC: Appropriate mood and affect; insight and judgment normal. Data Data Last Documented VS Vital Signs Date Time Temp Pulse Resp B/P (MAP) Pulse Ox O2 Delivery O2 Flow Rate FiO2 08/03/17 15:51 16 08/03/17 13:37 97.7 94 150/76 (100) 97 Orders Orders Acetaminophen (Tylenol) (08/03/17 16:00) Ed Discharge Order (08/03/17 15:58) MDM Medical Decision Making Medical Screen Exam Complete: Yes Emergency Medical Condition: Yes Medical Record Reviewed: Yes Differential Diagnosis Bacterial conjunctivitis, viral conjunctivitis, hordeolum Narrative Course 42-year-old male physical exam consistent with bilateral conjunctivitis. Polytrim eyedrops prescribed for home. Tylenol administered in the ER. Instructed patient to follow up with primary care provider. Patient verbalizes understanding and agreement with treatment plan. Patient is medically cleared and stable for discharge. Discussed reasons to return to the emergency department. Patient agrees with treatment plan. The patients vital signs are stable and the patient is stable for outpatient follow-up and treatment. Patient discharged home, stable and in no acute distress. 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 Primary Care Physician Patient Instructions: Conjunctivitis (ED), General Instructions Departure Forms: Tests/Procedures, Work Release Enter return to work date: Aug 05, 2017 Additional Instructions: Conjunctivitis is contagious Use antibiotic eye drops as prescribed Apply warm or cool compresses to both eyes for a few minutes several times daily to minimize irritation Avoid triggers, such as allergens, that may irritate your eyes Wash your hands frequently Do not share washcloths, towels, pillows, or any other material that has touched your eyes with any other household members Follow-up with your primary care provider Follow-up with ophthalmology as needed Return to the emergency department immediately with worsening of symptoms Med/Other Pt SpecificInfo: Prescription(s) given Scripts Polymyxin B-Trimethoprim Opth Drops (Polytrim Opth Drops) 10,000-0.1 Unit/Ml-% Soln 2 DROP EACH EYE Q6HR for Mgmt Bacterial Infection for 7 Days, #1 BOTTLE 0 Refills Prov: Chantelle Cortes 08/03/17 Disposition: 01 DISCHARGE HOME Condition: Stable Chantelle Cortes Aug 03, 2017 15:58
[2017-08-03] MEDS ORDERED: ACETAMINOPHEN 325 MG TAB PO ONE (16:00)
== END 2017-08-03 16:12 | disposition home or self-care (01) ==
LOC: NEPD 13:35
DX: H10.9 Unspecified conjunctivitis (principal); F32.9 Major depressive disorder, single episode, unspecified; Z86.718 Personal history of other venous thrombosis and embolism; Z87.442 Personal history of urinary calculi; Z79.899 Other long term (current) drug therapy
CPT/HCPCS: 99283

== ENCOUNTER 2017-09-11 23:50 | Emergency (ER) | payer SELFPAY ==
[~2017-09-11 23:50] MED LIST changes: +POLY10O EACH EYE
[2017-09-12 01:10] VITALS: BP 149/87; PULSE 87; RESP 16; TEMP 97.6; O2SAT 98
[2017-09-12 01:33] LABS: AUTOMATED NEUTROPHIL # 8.1 TH/MM3 (1.8-7.7); BASOPHIL % 0.4 % (0.0-2.0); EOSINOPHIL % 0.3 % (0.0-4.0); HEMATOCRIT 44.5 % (39.0-51.0); HEMOGLOBIN 14.7 GM/DL (13.0-17.0); LYMPH % 7.9 % (9.0-44.0); LYMPHOCYTE # 0.7 TH/MM3 (1.0-4.8); MEAN CELL VOLUME 85.8 FL (80.0-100.0); MEAN CORPUSCULAR HEMOGLOBIN 28.4 PG (27.0-34.0); MEAN CORPUSCULAR HGB CONC 33.1 % (32.0-36.0); MEAN PLATELET VOLUME 8.4 FL (7.0-11.0); MONO % 6.3 % (0.0-8.0); MONOCYTE # 0.6 TH/MM3 (0-0.9); NEUT % 85.1 % (16.0-70.0); PLATELET COUNT 254 TH/MM3 (150-450); RED BLOOD COUNT 5.19 MIL/MM3 (4.50-5.90); RED CELL DISTRIBUTION WIDTH 13.5 % (11.6-17.2); WHITE BLOOD COUNT 9.5 TH/MM3 (4.0-11.0)
[2017-09-12 02:04] LABS: ALKALINE PHOSPHATASE 66 U/L (45-117); TOTAL BILIRUBIN ADULT 0.4 MG/DL (0.2-1.0)
[2017-09-12 02:16] LABS: ALBUMIN 3.5 GM/DL (3.4-5.0); ALT (GPT) 23 U/L (12-78); AST (GOT) 22 U/L (15-37); BICARBONATE 31.9 MEQ/L (21.0-32.0); BLOOD UREA NITROGEN 14 MG/DL (7-18); CALCIUM 8.5 MG/DL (8.5-10.1); CHLORIDE 106 MEQ/L (98-107); CREATININE 1.13 MG/DL (0.60-1.30); GLOMERULAR FILTRATION RATE 71 ML/MIN (>89); GLUCOSE,RANDOM 117 MG/DL (74-106); SODIUM (NA) 142 MEQ/L (136-145)
[2017-09-12 02:39] VITALS: BP 136/90; PULSE 77; RESP 18; TEMP 98.1; O2SAT 98
[2017-09-12 02:50] LABS: BACTERIA, URINE FEW /hpf; BILIRUBIN, URINE NEG (NEG); BLOOD, URINE NEG (NEG); GLUCOSE,URINE NEG (NEG); KETONE, URINE NEG (NEG); MUCUS URINE MOD /lpf (OCC); NITRITE,URINE NEG (NEG); SQUAMOUS EPITHELIAL CELL URINE 1 /hpf (0-5); URINE COLOR YELLOW (YELLW/STRAW); URINE LEUKOCYTE ESTERASE NEG (NEG)
--- NOTE | 2017-09-12 03:08 | PD ---
HPI Chief Complaint: Abdominal Pain Time Seen by Provider: 03:07 Travel History International Travel<30 days: No Contact w/Intl Traveler<30days: No Traveled to known affect area: No History of Present Illness HPI 42-year-old male presents to the emergency department for complaint of nausea and dizziness. Patient states that he takes Xarelto daily for history of chronic recurrent DVT history of PE and chronic bilateral lower extremity lymphedema. Patient states that he has not missed any of his medications. Patient said no headache visual disturbance altered mental status epistaxis gingival bleeding hemoptysis hematemesis coffee-ground emesis melena hematochezia hematuria or increased bruising. Patient's had no injury or fall. Patient states that he was watching a hockey game when he noted some dizziness and nausea so decided to come to the emergency room for evaluation. Patient states dizziness has resolved continues to have some mild nausea. Patient denies other concerns or complaints. PFSH Past Medical History Narrative Medical PE DVT Xarelto therapy bilateral lower extremity lymphedema Hx Anticoagulant Therapy: Yes (XARELTO) Arthritis: No Asthma: No Autoimmune Disease: No Anxiety: No Depression: Yes Heart Rhythm Problems: No Cancer: No Cardiovascular Problems: Yes (DVT right leg and lung) High Cholesterol: No Chemotherapy: No Chest Pain: No Congestive Heart Failure: No COPD: No Cerebrovascular Accident: No Diabetes: No Diminished Hearing: No Deep Vein Thrombosis: Yes (RIGHT LEG 09/2015) Endocrine: No GERD: No Genitourinary: Yes Headaches: No Hiatal Hernia: No Hypertension: No Immune Disorder: No Implanted Vascular Access Dvce: No Kidney Stones: Yes Musculoskeletal: No Neurologic: No Psychiatric: No Reproductive: No Respiratory: No Integumentary: Yes (CHRONIC CELLULITIS PHILLIP FEET) Immunizations Current: Yes Migraines: No Radiation Therapy: No Renal Failure: No Seizures: No Sleep Apnea: No Thyroid Disease: No Ulcer: No Tetanus Vaccination: < 5 Years Influenza Vaccination: Yes Past Surgical History Abdominal Surgery: No Cardiac Surgery: No Ear Surgery: No Endocrine Surgery: No Eye Surgery: No Genitourinary Surgery: Yes (KIDNEY STONE REMOVED) Gynecologic Surgery: No Oral Surgery: No Thoracic Surgery: No Tonsillectomy: Yes Other Surgery: Yes (kidney stones removed and back surgery 1995) Social History Alcohol Use: No (pt denies) Tobacco Use: No (pt denies ) Substance Use: No Allergies-Medications (Allergen,Severity, Reaction): Coded Allergies: strawberry (Verified Allergy, Severe, Anaphylaxis, 09/12/17) THROAT CLOSES /RASH Reported Meds & Prescriptions Reported Meds & Active Scripts Active Reported Xarelto (Rivaroxaban) 10 Mg Tab 10 Mg PO DAILY Review of Systems Except as stated in HPI: all other systems reviewed are Neg Physical Exam Narrative GENERAL: Well-developed well-nourished obese male in no acute distress or respiratory distress SKIN: Warm and dry. HEAD: Normocephalic. EYES: No scleral icterus. No injection or drainage. NECK: Supple, trachea midline. No JVD or lymphadenopathy. CARDIOVASCULAR: Regular rate and rhythm without murmurs, gallops, or rubs. RESPIRATORY: Breath sounds equal bilaterally. No accessory muscle use. GASTROINTESTINAL: Abdomen soft, non-tender, nondistended. MUSCULOSKELETAL: No cyanosis, or edema. BACK: Nontender without obvious deformity. No CVA tenderness. Data Data Last Documented VS Vital Signs Date Time Temp Pulse Resp B/P (MAP) Pulse Ox O2 Delivery O2 Flow Rate FiO2 09/12/17 05:04 79 16 127/73 (91) 97 Room Air 09/12/17 02:39 98.1 Orders Orders Complete Blood Count With Diff (09/12/17 01:16) Comprehensive Metabolic Panel (09/12/17 01:16) Urinalysis - C+S If Indicated (09/12/17 01:16) Iv Access Insert/Monitor (09/12/17 01:16) Oxygen Administration (09/12/17 01:16) Oximetry (09/12/17 01:16) Lipase (09/12/17 01:16) Ondansetron Odt (Zofran Odt) (09/12/17 03:15) Orthostatic Vital Signs (09/12/17 03:07) Electrocardiogram (09/12/17 ) Ct Abd/Pel W/O Iv Contrast (09/12/17 ) Troponin I (09/12/17 01:20) Ed Discharge Order (09/12/17 05:43) Labs Laboratory Tests Test 09/12/17 01:20 09/12/17 02:35 White Blood Count 9.5 TH/MM3 Red Blood Count 5.19 MIL/MM3 Hemoglobin 14.7 GM/DL Hematocrit 44.5 % Mean Corpuscular Volume 85.8 FL Mean Corpuscular Hemoglobin 28.4 PG Mean Corpuscular Hemoglobin Concent 33.1 % Red Cell Distribution Width 13.5 % Platelet Count 254 TH/MM3 Mean Platelet Volume 8.4 FL Neutrophils (%) (Auto) 85.1 % Lymphocytes (%) (Auto) 7.9 % Monocytes (%) (Auto) 6.3 % Eosinophils (%) (Auto) 0.3 % Basophils (%) (Auto) 0.4 % Neutrophils # (Auto) 8.1 TH/MM3 Lymphocytes # (Auto) 0.7 TH/MM3 Monocytes # (Auto) 0.6 TH/MM3 Eosinophils # (Auto) 0.0 TH/MM3 Basophils # (Auto) 0.0 TH/MM3 CBC Comment DIFF FINAL Differential Comment Blood Urea Nitrogen 14 MG/DL Creatinine 1.13 MG/DL Random Glucose 117 MG/DL Total Protein 8.0 GM/DL Albumin 3.5 GM/DL Calcium Level 8.5 MG/DL Alkaline Phosphatase 66 U/L Aspartate Amino Transf (AST/SGOT) 22 U/L Alanine Aminotransferase (ALT/SGPT) 23 U/L Total Bilirubin 0.4 MG/DL Sodium Level 142 MEQ/L Potassium Level 4.7 MEQ/L Chloride Level 106 MEQ/L Carbon Dioxide Level 31.9 MEQ/L Anion Gap 4 MEQ/L Estimat Glomerular Filtration Rate 71 ML/MIN Troponin I LESS THAN 0.02 NG/ML Lipase 132 U/L Urine Color YELLOW Urine Turbidity HAZY Urine pH 6.0 Urine Specific [place] 1.031 Urine Protein 30 mg/dL Urine Glucose (UA) NEG mg/dL Urine Ketones NEG mg/dL Urine Occult Blood NEG Urine Nitrite NEG Urine Bilirubin NEG Urine Urobilinogen 2.0 MG/DL Urine Leukocyte Esterase NEG Urine RBC 1 /hpf Urine WBC 1 /hpf Urine Squamous Epithelial Cells 1 /hpf Urine Bacteria FEW /hpf Urine Mucus MOD /lpf Microscopic Urinalysis Comment CULT NOT INDICATED MDM Medical Decision Making Medical Screen Exam Complete: Yes Emergency Medical Condition: Yes Medical Record Reviewed: Yes Interpretation(s) EKG normal sinus rhythm rate 72 moderate intraventricular conduction delay no acute ST elevation or injury pattern EKG is unchanged from 06/01/17 Last Impressions Abdomen/Pelvis CT 09/12/17 0000 Signed Impressions: Service Date/Time: Tuesday, September 12, 2017 04:18 - CONCLUSION: 1. Prominent inguinal and adenopathy along the pelvic sidewall and along the iliac chains, unchanged. 2. No acute inflammatory process 3. Bilateral renal cysts. Carlos Qureshi MD CBC & BMP Diagram 09/12/17 01:20 Total Protein 8.0, Albumin 3.5, Calcium Level 8.5, Alkaline Phosphatase 66, Aspartate Amino Transf (AST/SGOT) 22, Alanine Aminotransferase (ALT/SGPT) 23, Total Bilirubin 0.4 Vital Signs Date Time Temp Pulse Resp B/P (MAP) Pulse Ox O2 Delivery O2 Flow Rate FiO2 09/12/17 05:04 79 16 127/73 (91) 97 Room Air 09/12/17 02:39 98.1 77 18 136/90 (105) 98 Room Air 09/12/17 01:10 97.6 87 16 149/87 (107) 98 Differential Diagnosis Electrolyte disturbance, arrhythmia, anemia, near syncope, syncope, coagulopathy Narrative Course Patient placed on monitor IV access obtained specimens collected and sent for resulting Lab values are found to be all normal range EKG shows no acute injury pattern change patient denies any chest pain or shortness of breath or pleuritic pain. Patient sent for CT abdomen pelvis which reveals no acute intra-abdominal or pelvic abnormality. Chronic changes remain unchanged. Patient informed of lab results EKG and imaging results. Patient is stable for outpatient management is to continue his Xarelto and follow-up with his primary care/managing physician. Diagnosis Primary Impression: Recurrent abdominal pain Referrals: Primary Care Physician call for appointment Patient Instructions: General Instructions Additional Instructions: Continue Xarelto Increase fluid hydration Return to the emergency department for any concerns or change in condition Med/Other Pt SpecificInfo: No Change to Meds Disposition: 01 DISCHARGE HOME Condition: Stable Arely Valles MD September 12, 2017 03:08
[2017-09-12] MEDS ORDERED: ONDANSETRON ODT 4 MG TAB PO ONE (03:15)
[2017-09-12 04:22] LABS: TROPONIN I LESS THAN 0.02 NG/ML (0.02-0.05)
[2017-09-12 05:04] VITALS: BP 127/73; PULSE 79; RESP 16; O2SAT 97
--- NOTE | 2017-09-12 05:12 | RADRPT ---
EXAM DATE/TIME: 09/12/2017 04:18 [facility] COMPARISON: CT ABDOMEN & PELVIS W CONTRAST, February 22, 2017, 0:26. CT ABDOMEN & PELVIS W/O CONTRAST, March, 13:32. INDICATIONS : Left flank pain and nausea. ORAL CONTRAST: No oral contrast ingested. RADIATION DOSE: 32.48 CTDIvol (mGy) ; Patient body habitus MEDICAL HISTORY : Renal calculi. Deep venous thrombosis. SURGICAL HISTORY : None. ENCOUNTER: Initial ACUITY: 1 day PAIN SCALE: 7/10 LOCATION: Left flank TECHNIQUE: Volumetric scanning of the abdomen and pelvis was performed. Using automated exposure control and ad justment of the mA and/or kV according to patient size, radiation dose was kept as low as reasonably achievable to obtain optimal diagnostic quality images. DICOM format image data is available electro nically for review and comparison. FINDINGS: LOWER LUNGS: The visualized lower lungs are clear. LIVER: Homogeneous density without lesion. There is no dilation of the biliary tree. No calcified gallston es. SPLEEN: Normal size without lesion. PANCREAS: Within normal limits. KIDNEYS: Normal in size and shape. There is no mass, stone, or hydronephrosis. Parapelvic cysts greater on th e left. ADRENAL GLANDS: Within normal limits. VASCULAR: There is no aortic aneurysm. BOWEL/MESENTERY: The stomach, small bowel, and colon demonstrate no acute abnormality. There is no free intraperitone al air or fluid. Normal appendix. ABDOMINAL WALL: Within normal limits. RETROPERITONEUM: There is no lymphadenopathy. BLADDER: No wall thickening or mass. REPRODUCTIVE: Within normal limits. INGUINAL: There is bilateral inguinal adenopathy. There is also adenopathy along the iliac chains again seen. MUSCULOSKELETAL: Within normal limits for patient age. CONCLUSION: 1. Prominent inguinal and adenopathy along the pelvic sidewall and along the iliac chains, unchanged. 2. No acute inflammatory process 3. Bilateral renal cysts. Carlos Qureshi MD on September 12, 2017 at 5:06 Board Certified Radiologist. This report was verified electronically.
--- NOTE | 2017-09-13 08:25 | EKG ---
Date Performed: 09/12/2017 Time Performed: 04:03:50 PTAGE: 42 years EKG: Sinus rhythm LOW QRS VOLTAGE IN PRECORDIAL LEADS PATTERN CONSISTENT WITH PULMONARY DISEASE MODERATE INTRAVENTRICU LAR CONDUCTION DELAY ABNORMAL ECG INTERPRETATION BASED ON A DEFAULT AGE OF 39 YEARS PREVIOUS TRACING : 06/01/2017 23.56 DOCTOR: Rosaura Eden Interpretating Date/Time 09/13/2017 08:25:01
== END 2017-09-12 06:28 | disposition home or self-care (01) ==
LOC: NEPC 23:50
DX: R10.9 Unspecified abdominal pain (principal); R59.9 Enlarged lymph nodes, unspecified; N28.1 Cyst of kidney, acquired; R11.0 Nausea; R42 Dizziness and giddiness; R94.31 Abnormal electrocardiogram [ECG] [EKG]; Z87.442 Personal history of urinary calculi; Z86.718 Personal history of other venous thrombosis and embolism; Z79.899 Other long term (current) drug therapy
CPT/HCPCS: 74176; 80053; 81001; 83690; 84484; 85025; 93005; 99285